=== PATIENT | male | born 1945 | race Caucasian/White ===

== ENCOUNTER 2017-05-26 17:50 | Inpatient (IN) ==
[2017-05-26] MEDS ORDERED: IPRATROPIUM/ALBUTEROL 3 ML AMPUL.NEB NEB ONE (18:19)
[2017-05-26] MEDS ORDERED: PHYTONADIONE 10 MG/ML AMPUL SQ ONE (18:36)
--- NOTE | 2017-05-26 18:38 | Emergency Department Note ---
General Adult HPI - General Chief complaint: Cold/Flu Symptoms Stated complaint: Coughing up blood Time Seen by Provider: 05/26/17 18:09 Source: patient Mode of arrival: ambulatory Limitations: no limitations - History of Present Illness HPI Narrative: 72-year-old male has been coughing up blood and coming out of his nose as well for the last hour and 45 minutes or so prior to arrival. He has had a cold for the last 2 weeks with some wheezing and his inhaler has not helped. He does have a history of COPD having stopped smoking about 3 years ago. On Coumadin for atrial fibrillation. He took some Mucinex and NyQuil without much help this last week. Denies fever chills. His shakes have increased but he has an essential tremor underlying - Related Data Home Medications Medication Instructions Recorded Confirmed aspirin 81 mg tablet,delayed 81 mg PO QDAY tab 02/09/15 04/26/17 release cholecalciferol (vitamin D3) 2,000 2,000 unit PO QDAY cap 02/09/15 04/26/17 unit capsule coenzyme Q10 200 mg capsule 200 mg PO QDAY cap 02/09/15 04/26/17 cyanocobalamin (vit B-12) 1,000 1,000 mcg PO QDAY tab 02/09/15 04/26/17 mcg tablet multivitamin tablet 1 tab PO QDAY tab 02/09/15 04/26/17 [place] 3 Fish Oil 1000MG 1 tab PO DAILY 07/19/15 04/26/17 Super B Complex 1 tab PO DAILY 07/19/15 04/26/17 digoxin 125 mcg tablet 125 mcg PO QDAY 07/19/15 04/26/17 nitroglycerin 0.4 mg sublingual 0.4 mg SUBLINGUAL Q5-15MIN PRN 07/19/15 04/26/17 tablet amiodarone 200 mg tablet 200 mg PO QDAY 30 Days #30 tab 07/11/16 04/26/17 losartan 25 mg tablet 25 mg PO QDAY 03/26/17 04/26/17 Previous Rx's Medication Instructions Recorded warfarin 5 mg tablet 5 mg PO .COMPLEX #1 tab 12/24/16 warfarin 5 mg tablet 5 mg PO .COMPLEX #90 tab 12/24/16 carvedilol 25 mg tablet 25 mg PO BID #180 tab 01/08/17 gabapentin 600 mg tablet 600 mg PO qhs #30 tab 01/28/17 potassium chloride ER 20 mEq 40 meq PO BID #360 tab 01/28/17 tablet,extended release(part/cryst) torsemide 10 mg tablet See Label Instructions PO .COMPLEX 01/28/17 #270 tab atorvastatin 40 mg tablet 40 mg PO QHS #90 tab 02/25/17 Glucometer #1 each 04/26/17 blood sugar diagnostic strips See Dose Instructions .ROUTE 04/26/17 .MEDSUPPLY #100 each lancets See Dose Instructions .ROUTE 04/26/17 .MEDSUPPLY #100 each Allergies Allergy/AdvReac Type Severity Reaction Status Date / Time spironolactone Allergy Severe vomiting Verified 05/26/17 17:51 Penicillins Allergy Unknown Hives Verified 05/26/17 17:51 Sulfa (Sulfonamide Allergy Unknown Hives Verified 05/26/17 17:51 Antibiotics) ethacrynic acid AdvReac Unknown Diarrhea Verified 05/26/17 17:51 Review of Systems All systems ED: reviewed and negative except as stated. Past Medical History - Past Medical History Attestation: Yes: The following information was validated with the patient. Medical history: Reports: arthritis, atrial fibrillation, CHF, COPD, coronary artery disease, diabetes, hyperlipidemia, hypertension, renal disease, other ( Essential tremor, BPH, diverticulitis) Surgical history ED: Reports: angioplasty/stent, colectomy, hip replacement, orthopedic, other (Lumbar surgery, shoulder surgery), pacemaker/AICD - Social History smoking status: Former smoker Alcohol use: Reports: None Drug use: Reports: none Physical Exam No acute distress. Normocephalic atraumatic. Conjunctive are clear sclerae nonicteric. No nasal discharge or congestion. Oropharynx is pink and moist. Upper dentures. Small amount of bleeding appears to be coming from postnasal area/posterior pharynx-it is slowing down. He does have a productive cough. Neck is supple without lymphadenopathy thyromegaly or carotid bruit. Heart is irregularly irregular rhythm no murmurs appreciated. Lungs after single breathing treatment with DuoNeb are much improved and he is moving air well with again a productive cough. There is some blood-tinged sputum. Abdomen soft nontender nondistended. +2 radial pulse. He is alert oriented. Significant resting tremor - General Limitations: no limitations Course Vital Signs Temperature 97.4 F 05/26/17 17:51 Pulse Rate 79 05/26/17 17:51 Respiratory Rate 20 05/26/17 17:51 Blood Pressure 124/71 05/26/17 17:51 Pulse Oximetry (%) 98 05/26/17 17:51 Temperature 97.4 F 05/26/17 17:51 Pulse Rate 67 05/26/17 19:51 Respiratory Rate 20 05/26/17 18:28 Blood Pressure 120/80 05/26/17 19:46 Pulse Oximetry (%) 98 05/26/17 19:51 Medical Decision Making - Lab Data Lab results reviewed: Yes I reviewed the patient's lab results. Result diagrams: 05/26/17 18:38 05/26/17 18:38 Lab Results 05/26/17 05/26/17 05/26/17 Range/Units 18:32 18:38 18:38 WBC 8.5 (4.5-11.0) K/mcL RBC 5.58 (4.50-5.90) M/mcL Hgb 15.4 (13.5-16.5) g/dL Hct 48.8 (41.0-55.0) % POC Hct 50.0 (41.0-55.0) % MCV 87.4 (80.0-100.0) fL MCH 27.6 (26.0-34.0) pg MCHC 31.6 (31.0-36.0) g/dL RDW 17.7 H (11.5-14.5) % Plt Count 255 (140-440) K/mcL MPV 7.7 (7.4-10.4) fL Gran % 74.9 (38.0-78.0) % Lymph % (Auto) 16.6 (15.5-49.0) % [place] % (Auto) 6.3 (1.0-12.0) % Eos % (Auto) 2.1 (0.0-7.0) % Baso % (Auto) 0.1 (0.0-2.0) % Gran # 6.3 (1.8-8.0) K/mcL Lymph # (Auto) 1.4 L (1.5-4.8) K/mcL [place] # (Auto) 0.5 (0.1-0.9) K/mcL Eos # (Auto) 0.2 (0.0-0.7) K/mcL Baso # (Auto) 0 (0.0-0.3) K/mcL POC PT > 66.0 H (11.9-14.5) sec POC INR > 6.0 H* (0.9-1.2) POC Sodium 143 (133-145) mmol/L Sodium 144 (133-145) mmol/L POC Potassium 3.7 (3.3-5.1) mmol/L Potassium 3.8 (3.3-5.1) mmol/L POC Chloride 105 (96-108) mmol/L Chloride 102 (96-108) mmol/L Carbon Dioxide 24 (22-30) mmol/L POC Total CO2 26 (22-30) mmol/L Anion Gap 18.0 H (8-16) POC BUN 28 H (8-23) mg/dl BUN 26 H (8-23) mg/dl Creatinine 1.9 H (0.7-1.2) mg/dl POC Creatinine 2.0 H (0.7-1.2) mg/dl GFR Calculation 35 Glucose 130 H (70-105) mg/dL POC Glucose 128 H (70-105) mg/dL Calcium 9.3 (8.6-10.4) mg/dl POC WB Ioniz Calcium 1.12 L (1.16-1.32) mmol/L Total Bilirubin 1.3 H (0.0-1.0) mg/dL AST 17 (0-37) U/l ALT 15 (0-40) U/l Alkaline Phosphatase 103 (39-117) U/L Total Protein 7.2 (5.9-8.4) gm/dL Albumin 3.9 (3.2-5.2) gm/dL Globulin 3.3 (2.2-3.7) gm/dL Albumin/Globulin Ratio 1.2 (1.0-2.3) Digoxin (0.0-0.3) ng/mL Digoxin Dose Digox Last Dose Time 05/26/17 Range/Units 18:38 WBC (4.5-11.0) K/mcL RBC (4.50-5.90) M/mcL Hgb (13.5-16.5) g/dL Hct (41.0-55.0) % POC Hct (41.0-55.0) % MCV (80.0-100.0) fL MCH (26.0-34.0) pg MCHC (31.0-36.0) g/dL RDW (11.5-14.5) % Plt Count (140-440) K/mcL MPV (7.4-10.4) fL Gran % (38.0-78.0) % Lymph % (Auto) (15.5-49.0) % [place] % (Auto) (1.0-12.0) % Eos % (Auto) (0.0-7.0) % Baso % (Auto) (0.0-2.0) % Gran # (1.8-8.0) K/mcL Lymph # (Auto) (1.5-4.8) K/mcL [place] # (Auto) (0.1-0.9) K/mcL Eos # (Auto) (0.0-0.7) K/mcL Baso # (Auto) (0.0-0.3) K/mcL POC PT (11.9-14.5) sec POC INR (0.9-1.2) POC Sodium (133-145) mmol/L Sodium (133-145) mmol/L POC Potassium (3.3-5.1) mmol/L Potassium (3.3-5.1) mmol/L POC Chloride (96-108) mmol/L Chloride (96-108) mmol/L Carbon Dioxide (22-30) mmol/L POC Total CO2 (22-30) mmol/L Anion Gap (8-16) POC BUN (8-23) mg/dl BUN (8-23) mg/dl Creatinine (0.7-1.2) mg/dl POC Creatinine (0.7-1.2) mg/dl GFR Calculation Glucose (70-105) mg/dL POC Glucose (70-105) mg/dL Calcium (8.6-10.4) mg/dl POC WB Ioniz Calcium (1.16-1.32) mmol/L Total Bilirubin (0.0-1.0) mg/dL AST (0-37) U/l ALT (0-40) U/l Alkaline Phosphatase (39-117) U/L Total Protein (5.9-8.4) gm/dL Albumin (3.2-5.2) gm/dL Globulin (2.2-3.7) gm/dL Albumin/Globulin Ratio (1.0-2.3) Digoxin 1.0 H (0.0-0.3) ng/mL Digoxin Dose Not Reportable Digox Last Dose Time Not Reportable - Radiology Data Radiology results reviewed: Yes I reviewed the patient's radiology results. Chest x-ray shows stigmata COPD and pacemaker but no acute findings Disposition Pt seen by PROCESS HELPER/PA only: No Clinical Impression: Dehydration, Supratherapeutic INR, Bronchitis Acute kidney failure Qualifiers: Acute renal failure type: unspecified Qualified Code(s): N17.9 - Acute kidney failure, unspecified Summary: Initially treated with DuoNeb while sorting out why he is bleeding. INR came back at 6.7 so he is given 5 mg of vitamin K IM. DuoNeb did help his cough get better and he was moving air much better. Chest x-ray shows stigmata of COPD. He is given azithromycin and Solu-Medrol as well as cough syrup with guaifenesin and codeine. Bleeding did slow down somewhat Laboratory also showed elevated creatinine and hemoconcentration likely from dehydration. Given p.o. water as well as started IV fluids. Creatinine elevated to 1.9 from 1.[address] Crum, hospitalist, who agreed to accept the patient for further valuation and management in the hospital Disposition: Xfer As Inpt ([facility]) Condition: Fair Referrals: Fletcher Perera MD [Primary Care Provider] -
[2017-05-26 19:17] LABS: Basophils # (Auto) 0 K/mcL (0.0-0.3); Basophils % (Auto) 0.1 % (0.0-2.0); Eosinophils # (Auto) 0.2 K/mcL (0.0-0.7); Eosinophils % (Auto) 2.1 % (0.0-7.0); Granulocytes % (Auto) 74.9 % (38.0-78.0); Lymphocytes # (Auto) 1.4 K/mcL (1.5-4.8); Lymphocytes % (Auto) 16.6 % (15.5-49.0); Mean Cell Volume 87.4 fL (80.0-100.0); Mean Corpuscular HGB Conc 31.6 g/dL (31.0-36.0); Mean Corpuscular Hemoglobin 27.6 pg (26.0-34.0); Monocytes # (Auto) 0.5 K/mcL (0.1-0.9); Monocytes % (Auto) 6.3 % (1.0-12.0); Platelet Count 255 K/mcL (140-440); RBC 5.58 M/mcL (4.50-5.90); Red Cell Distribution Width 17.7 % (11.5-14.5)
[2017-05-26 19:37] LABS: ALT/SGPT 15 U/l (0-40); Albumin 3.9 gm/dL (3.2-5.2); Albumin/Globulin Ratio 1.2 (1.0-2.3); Alkaline Phosphatase 103 U/L (39-117); Blood Urea Nitrogen 26 mg/dl (8-23)
[2017-05-26] MEDS ORDERED: guaiFENesin/CODEINE 10 ML UDC PO ONE (19:47)
[2017-05-26] MEDS ORDERED: methylPREDNISolone SOD SUCC 125 MG/2 ML VIAL IM ONE (19:48)
[2017-05-26] MEDS ORDERED: AZITHROMYCIN 250 MG TABLET PO ONE (19:48)
[2017-05-26] MEDS ORDERED: 0.9 % SODIUM CHLORIDE 1,000 ML IV ONE ×2 (20:08→21:23)
--- NOTE | 2017-05-26 21:40 | Internal Med History&Physical ---
Medical - H&P: HPI Patient information: Note initiated : 05/26/17 at 9:36 pm Service Date, if different from initiated Date: [] Patient: Jameson Stewart 72 y/o M admitted on for Coughing up blood. Chief Complaint: cough, dyspnea, hemoptysis today History of present illness: Mr. Stewart is a 72 year old M with a history of atrial fibrillation, type 2 diabetes, coronary artery disease, COPD (by PFTs in 2015). He presents with about 2 weeks of pulmonary symptoms. History is obtained in interviewing the patient, reviewing old records as noted below. About 2 weeks ago patient was around a friend to an upper respiratory tract infection. Shortly thereafter he developed a sore throat as well as sinus congestion and postnasal drip. He also developed a cough which has seemed to worsen during that time. His notes that the cough is very frequent, he's constantly bringing up yellowish sputum. She is also noted that he is quite wheezy. He does not use any bronchodilators or other pulmonary meds at baseline. He has been trying to use [id number] cough suppressants without much relief. Today he was coughing quite hard, when he expectorated sputum he noticed it was red, he continued to spit up bloody sputum for the next few hours. He is fairly certain this is coming from the lungs, also feels he may be having some postnasal drip which may be the source of the bleeding. It has tapered off by the time I see the patient. He's had ongoing fullness in his ears and sinus congestion, but no facial pressure or pain. As noted, he's had some postnasal drip for the last 2 weeks. The hearing in his left ear is a little muffled, he cannot get his ears to equalize. Denies any nausea, vomiting, or abdominal pain. He's had some loose stools for about the last week. He's had decreased appetite. He's also had decreased oral fluid intake. He's had no antibiotic exposures. No chest pain/tightness/ squeezing/anginal symptoms. No lower extremity edema. No focal neurological symptoms. Because of the hemoptysis, he presents to the emergency room. Found to have significant wheezing and bronchospasm as well as rhonchi. Also found to have an INR of 6.7 and elevated creatinine 1.9, with a baseline creatinine of 1.5- 1.7. Sputum admitted for coagulopathy, hemoptysis and COPD exacerbation. Review of systems: Except as noted in history present illness, the remainder of a 12 point review of systems is negative Medical - H&P: PMH Medical history: BPH without urinary obstruction CAD DE stent X 2 to LAD CKD stage III Recent Cr in 1.5-1.7 range Cardiomyopathy, EF 35% noted 12/2015 clinic note. Congestive heart failure-chronic systolic COPD, moderate obstruction on PFT's 2014 Degenerative disc disease L spine Diabetes mellitus, type II Diverticulosis of colon History of colonic polyps History of Polio as a child Hyperlipidemia Hypertension, essential, benign Hypertensive renal disease Lower extremity edema Paroxysmal atrial fibrillation On warfarin Raynaud's syndrome H/O Ankle fracture- Left H/O Nasal fracture H/O Radial fracture H/O Ribs, multiple fractures Surgical history: History of colonoscopy History of coronary artery stent placement LAD with re-stent History of esophagogastroduodenoscopy History of pacemaker History of diverticular abscess DIVERTICULAR/COLOSTOMY AND REANASTOMOSIS History of hip surgery Dr Vogel- Right hip arthroplasty using Gaye components History of lumbosacral spine surgery 2013,1995 Juan 2013, Yuri 96-lumbar fusion History of right hip replacement 2013 History of shoulder surgery R RTC Status post lumbar discectomy Pertinent family history: Father , 89; had Abdominal aortic aneurysm, CAD, Hypertension, OA Mother ; CAD, DM, Hypertension Social history: Lives with ; stopped smoking Jul 2014. Occasional alcohol use. Medical - H&P: Meds Home Medications Medication Instructions Recorded Confirmed Type aspirin 81 mg tablet,delayed 81 mg PO QDAY tab 02/09/15 04/26/17 History release cholecalciferol (vitamin D3) 2,000 2,000 unit PO QDAY cap 02/09/15 04/26/17 History unit capsule coenzyme Q10 200 mg capsule 200 mg PO QDAY cap 02/09/15 04/26/17 History cyanocobalamin (vit B-12) 1,000 1,000 mcg PO QDAY tab 02/09/15 04/26/17 History mcg tablet multivitamin tablet 1 tab PO QDAY tab 02/09/15 04/26/17 History [place] 3 Fish Oil 1000MG 1 tab PO DAILY 07/19/15 04/26/17 History Super B Complex 1 tab PO DAILY 07/19/15 04/26/17 History digoxin 125 mcg tablet 125 mcg PO QDAY 07/19/15 04/26/17 History nitroglycerin 0.4 mg sublingual 0.4 mg SUBLINGUAL Q5-15MIN PRN 07/19/15 History tablet amiodarone 200 mg tablet 200 mg PO QDAY 30 Days #30 tab 07/11/16 04/26/17 History warfarin 5 mg tablet 5 mg PO .COMPLEX #1 tab 12/24/16 04/26/17 Rx warfarin 5 mg tablet 5 mg PO .COMPLEX #90 tab 12/24/16 04/26/17 Rx carvedilol 25 mg tablet 25 mg PO BID #180 tab 01/08/17 04/26/17 Rx gabapentin 600 mg tablet 600 mg PO qhs #30 tab 01/28/17 04/26/17 Rx potassium chloride ER 20 mEq 40 meq PO BID #360 tab 01/28/17 04/26/17 Rx tablet,extended release(part/cryst) torsemide 10 mg tablet See Label Instructions PO .COMPLEX 01/28/17 04/26/17 Rx #270 tab atorvastatin 40 mg tablet 40 mg PO QHS #90 tab 02/25/17 04/26/17 Rx losartan 25 mg tablet 25 mg PO QDAY 03/26/17 04/26/17 History Glucometer #1 each 04/26/17 04/26/17 Rx blood sugar diagnostic strips See Dose Instructions .ROUTE 04/26/17 04/26/17 Rx .MEDSUPPLY #100 each lancets See Dose Instructions .ROUTE 04/26/17 04/26/17 Rx .MEDSUPPLY #100 each Allergies Allergy/AdvReac Type Severity Reaction Status Date / Time Penicillins Allergy Mild Hives Verified 05/26/17 22:20 Sulfa (Sulfonamide Allergy Mild Hives Verified 05/26/17 22:20 Antibiotics) ethacrynic acid AdvReac Mild Diarrhea Verified 05/26/17 22:20 spironolactone AdvReac Mild vomiting Verified 05/26/17 22:20 Medical - H&P: Exam - Constitutional Vitals: Temp Pulse Resp BP Pulse Ox 97.4 F 70 20 126/87 95 05/26/17 17:51 05/26/17 21:20 05/26/17 18:28 05/26/17 21:01 05/26/17 21:20 General appearance: average body habitus, mild distress - Head Head exam: Present: atraumatic, normal inspection - Eye Eye exam: Present: conjunctival injection, PERRL. Absent: scleral icterus - ENT ENT exam: Present: mucous membranes moist Additional comments: injection of posterior pharynx, worse on left - Expanded ENT Exam Nose & sinuses exam: Present: sinuses non tender to palpatation - Neck Neck exam: Present: full ROM. Absent: lymphadenopathy, meningismus, thyromegaly - Respiratory Additional comments: Diffusely scattered expiratory wheezes and rhonchi,respirations mildly labored - Cardiovascular Cardiovascular exam: Present: irregular rhythm. Absent: diastolic murmur, systolic murmur - Expanded Cardiovascular Exam Peripheral pulses: 2+: carotid (L), carotid (R), radial (L), radial (R) - GI/Abdominal GI/Abdominal exam: Present: normal bowel sounds, soft. Absent: distended, organomegaly, rebound, tenderness - Extremities Exam Extremities exam: Present: normal inspection. Absent: calf tenderness, pedal edema - Neurological Exam Neurological exam: Present: alert, CN II-XII intact, oriented X3. Absent: motor sensory deficit - Psychiatric Psychiatric exam: Present: normal affect, normal mood - Skin Skin exam: Present: dry, warm. Absent: cyanosis Medical - H&P: Reslt - Labs CBC & Chem 7: 05/26/17 18:38 05/26/17 18:38 Labs: Short CBC 05/26/17 Range/Units 18:38 WBC 8.5 (4.5-11.0) K/mcL Hgb 15.4 (13.5-16.5) g/dL Hct 48.8 (41.0-55.0) % Plt Count 255 (140-440) K/mcL BMP 05/26/17 18:38 Sodium 144 Potassium 3.8 Chloride 102 Carbon Dioxide 24 BUN 26 H Creatinine 1.9 H Glucose 130 H Calcium 9.3 Liver Function 05/26/17 Range/Units 18:38 Total Bilirubin 1.3 H (0.0-1.0) mg/dL AST 17 (0-37) U/l ALT 15 (0-40) U/l Alkaline Phosphatase 103 (39-117) U/L Albumin 3.9 (3.2-5.2) gm/dL - Pulse Oximetry Interpretation Digit-Finger Pulse Oximetry Readin - Imaging and Cardiology Chest x-ray Status: image reviewed by me Additional comments: No infiltrate, pacemaker. Medical - H&P: A/P (1) COPD exacerbation Problem details: Moderate obstructive lung disease 2014 Current visit: Yes Status: Acute (2) Hemoptysis Current visit: Yes Status: Acute (3) Supratherapeutic INR Problem details: due to warfarin Current visit: Yes Status: Acute (4) CKD (chronic kidney disease), stage III Problem details: most recent s.creat is 1.3 which equals to egfr of 56 l/min per MDRD equation s.creat at baseline is 1.1-1.3 and he does have recent worsening of his renal function in the setting of worsening CHF symptoms His recent worsening is likely sec to cardio renal syndrome, he has h/o DM type 2 and HTN as additional risk factor for renal disease His UA in 04/2015 showed + prt and few RBC at this point, will recheck labs and renal US advised to avoid NSAIDS, volume depletion advised to follow low sodium diet will monitor Current visit: Yes Status: Chronic (5) Diabetes mellitus, type II Current visit: Yes Status: Chronic - Narrative A/P Narrative: 72-year-old male with multiple medical problems presents with hemoptysis, in the setting of coagulopathy from warfarin toxicity and COPD exacerbation. Also mildly elevated creatinine, though baseline creatinine is 1.5-1.7. Hemoptysis. Suspect this is a combination of COPD exacerbation with cough and coagulopathy with supratherapeutic INR. Patient was forcefully coughing and expectorating blood. Possibly this could be from sinus drainage, though no evidence of sinus tenderness on exam and although the posterior pharynx was a bit difficult to see, no obvious bloody postnasal drip. Hemoglobin is 15, suspect is actually a bit dry in that that will drop with hydration, but no evidence of significant blood loss at this time. Plan: -Inpatient admission -Follow hemoglobin -Reverse coagulopathy -Treat COPD -If does not gabriel, we'll consider CT COPD with exacerbation. Patient was unaware of diagnosis, though he does have PFTs from 2015 showing moderate conductive disease. He is not surprised to hear that he may have COPD given his smoking history. Suspect viral URI started the exacerbation, he was around a friend who had URI symptoms prior to his beginning. Plan: -Received Solu-Medrol ED, will use Pulmicort as an inpatient -Scheduled DuoNeb -When necessary albuterol -Azithromycin -Flutter valve and incentive spirometer -Cough suppressant with codeine/guaifenesin as the patient has been having difficulty getting rest Coagulopathy due to warfarin toxicity. Likely secondary to his decreased oral intake and dietary changes. Has not doubled up on any of his medications. His last INR check was about a month ago when it was 3.5. Plan: -Received vitamin K in the ED, we'll recheck INR in a.m. -If significant worsening bleeding, we'll give further vitamin K and fresh frozen plasma Atrial fibrillation. Currently rate controlled. Plan: Once home meds confirmed, back onto carvedilol Chronic kidney disease, stage III. Creatinine mildly elevated above baseline at 1.9. Likely represents some component of prerenal insufficiency. Plan: Fluid hydration, follow creatinine. Type 2 diabetes mellitus. Home medications not yet confirmed, on a combination product. Plan: For now, diabetic diet and sliding scale insulin. Chronic systolic heart failure. In December 2015, noted in a nephrology note that his ejection fraction was 35%. Primary echo results not readily available. At time of admission, patient is not in exacerbation. Plan: Confirm home meds and resume regimen. Coronary disease. Quiescent. Plan: Once meds confirmed, resume home regimen. CODE STATUS is full code Prophylaxis: PPI, no further DVT prophylaxis as the patient is already supratherapeuticly anticoagulated.
[2017-05-26] MEDS ORDERED: HYDROcodone/APAP 5/325MG TABLET PO PRN (21:47)
[2017-05-26] MEDS ORDERED: DEXTROSE 31 GM ORAL.SUSP PO PRN (21:47)
[2017-05-26] MEDS ORDERED: ALBUTEROL SULFATE 2.5 MG/3 ML NEBULIZER NEB PRN (21:47)
[2017-05-26] MEDS ORDERED: DEXTROSE 50% 50 ML VIAL IV PRN (21:47)
[2017-05-26] MEDS ORDERED: ONDANSETRON 4 MG/2 ML VIAL IV PRN (21:47)
[2017-05-26] MEDS ORDERED: ACETAMINOPHEN 325 MG TABLET PO PRN (21:47)
[2017-05-26] MEDS: 0.9 % SODIUM CHLORIDE 1,000 ML IV SCH (22:34)
[2017-05-26] MEDS: INSULIN LISPRO 1 UNIT/0.01 ML UNIT SQ SCH (22:35)
[2017-05-26] MEDS: 0.9 % SODIUM CHLORIDE 10 ML SYRINGE IV SCH (22:36)
[2017-05-26] MEDS: BUDESONIDE 0.5 MG/2 ML AMPUL.NEB NEB SCH (23:09)
[2017-05-26] MEDS: IPRATROPIUM/ALBUTEROL 3 ML AMPUL.NEB NEB SCH (23:09)
[2017-05-26] MEDS: guaiFENesin/CODEINE 10 ML UDC PO PRN (23:50)
[2017-05-27] MEDS: IPRATROPIUM/ALBUTEROL 3 ML AMPUL.NEB NEB SCH ×6 (02:49→23:19)
[2017-05-27] MEDS: 0.9 % SODIUM CHLORIDE 1,000 ML IV SCH ×6 (02:49→23:28)
[2017-05-27 05:34] LABS: Mean Cell Volume 88.2 fL (80.0-100.0); Mean Corpuscular Hemoglobin 28.2 pg (26.0-34.0); Platelet Count 220 K/mcL (140-440); RBC 5.09 M/mcL (4.50-5.90); Red Cell Distribution Width 17.2 % (11.5-14.5)
[2017-05-27] MEDS: 0.9 % SODIUM CHLORIDE 10 ML SYRINGE IV SCH ×3 (05:37→23:25)
[2017-05-27 05:53] LABS: Blood Urea Nitrogen 28 mg/dl (8-23)
[2017-05-27 06:32] LABS: Anisocytosis 1+ (NONE SEEN); Band Neutrophils % 1 % (0-10); Lymphocytes % 7 % (15-49); Monocytes % (Manual) 1 % (1-12); Platelet Estimate NORMAL (NORMAL); RBC Morphology ABNORM (NORMAL); Segmented Neutrophils % 91 % (38-78)
[2017-05-27] MEDS: PANTOPRAZOLE 40 MG TABLET PO SCH (07:51)
[2017-05-27] MEDS: INSULIN LISPRO 1 UNIT/0.01 ML UNIT SQ SCH ×4 (07:52→21:16)
--- NOTE | 2017-05-27 08:30 | XRay Report ---
CLINICAL INFORMATION: Cough COMPARISON: 06/21/2016 FINDINGS: The heart is mildly enlarged. Pacemaker/defibrillator and leads in stable satisfactory position. Mediastinum and pulmonary vessels are normal. Lungs are clear. No effusions. Moderate degenerative changes present in the mid thoracic spine are stable IMPRESSION: Mild stable cardiomegaly. No acute disease. Stable Interpreted and Authenticated by: Stanley Diop 05/27/17
[2017-05-27] MEDS: AZITHROMYCIN 250 MG TABLET PO SCH (09:51)
[2017-05-27] MEDS: AMIODARONE HCL 200 MG TABLET PO SCH (09:55)
[2017-05-27] MEDS ORDERED: DIGOXIN 125 MCG TABLET PO SCH (14:00)
[2017-05-27] MEDS: CARVEDILOL 12.5 MG TABLET PO SCH (16:44)
[2017-05-27] MEDS: POTASSIUM CHLORIDE 20 MEQ TABLET PO SCH (16:44)
[2017-05-27] MEDS: guaiFENesin/CODEINE 10 ML UDC PO PRN ×2 (16:45→21:14)
[2017-05-27] MEDS: TORSEMIDE 10 MG TABLET PO SCH ×2 (18:21→21:17)
[2017-05-27] MEDS ORDERED: WARFARIN 2.5 MG TABLET PO ONE (18:23)
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
[2017-05-27] MEDS: BUDESONIDE 0.5 MG/2 ML AMPUL.NEB NEB SCH (19:23)
[2017-05-27] MEDS: ATORVASTATIN 20 MG TABLET PO SCH (21:14)
[2017-05-27] MEDS: GABAPENTIN 300 MG CAPSULE PO SCH (21:14)
[2017-05-28] MEDS: BUDESONIDE 0.5 MG/2 ML AMPUL.NEB NEB SCH ×3 (00:39→19:10)
[2017-05-28] MEDS: guaiFENesin/CODEINE 10 ML UDC PO PRN ×2 (01:10→05:37)
[2017-05-28] MEDS: 0.9 % SODIUM CHLORIDE 10 ML SYRINGE IV SCH ×3 (05:29→20:27)
[2017-05-28] MEDS: 0.9 % SODIUM CHLORIDE 1,000 ML IV SCH ×4 (05:29→23:57)
[2017-05-28] MEDS: IPRATROPIUM/ALBUTEROL 3 ML AMPUL.NEB NEB SCH ×7 (05:29→23:05)
[2017-05-28 05:37] LABS: Mean Cell Volume 88.1 fL (80.0-100.0); Mean Corpuscular HGB Conc 31.7 g/dL (31.0-36.0); Platelet Count 228 K/mcL (140-440); Red Cell Distribution Width 17.9 % (11.5-14.5)
[2017-05-28 06:08] LABS: Blood Urea Nitrogen 29 mg/dl (8-23)
[2017-05-28 06:31] LABS: Anisocytosis 1+ (NONE SEEN); Band Neutrophils % 1 % (0-10); Eosinophils % (Manual) 1 % (0-7); Lymphocytes % 11 % (15-49); Monocytes % (Manual) 6 % (1-12); Platelet Estimate NORMAL (NORMAL); RBC Morphology ABNORM (NORMAL); Segmented Neutrophils % 81 % (38-78)
[2017-05-28] MEDS: PANTOPRAZOLE 40 MG TABLET PO SCH (07:48)
[2017-05-28] MEDS: AMIODARONE HCL 200 MG TABLET PO SCH (07:49)
[2017-05-28] MEDS: CARVEDILOL 12.5 MG TABLET PO SCH ×2 (07:49→17:16)
[2017-05-28] MEDS: POTASSIUM CHLORIDE 20 MEQ TABLET PO SCH ×2 (07:49→17:17)
[2017-05-28] MEDS: AZITHROMYCIN 250 MG TABLET PO SCH (10:09)
[2017-05-28] MEDS: TORSEMIDE 10 MG TABLET PO SCH ×2 (10:11→20:25)
[2017-05-28] MEDS: MULTIVIT,THER IRON,CA,FA & MIN 1 TABLET PO SCH (10:13)
[2017-05-28] MEDS: LOSARTAN 25 MG TABLET PO SCH (10:17)
[2017-05-28] MEDS: INSULIN LISPRO 1 UNIT/0.01 ML UNIT SQ SCH ×4 (10:20→20:26)
--- NOTE | 2017-05-28 11:50 | XRay Report ---
CLINICAL INFORMATION: Cough and elevated white blood cell count COMPARISON: 05/26/2017 FINDINGS: Heart is increased in size and now moderately enlarged. Pacemaker/fibrillator is in stable satisfactory position. Mediastinum is unremarkable. The pulmonary vessels are now mildly distended and there is minimal interstitial edema in both lung. Small infiltrate has developed in the posterior medial right lower lobe. Tiny bilateral pleural effusions noted IMPRESSION: 1. Mild recurrent CHF 2. Small infiltrate developing in the posterior right lower lobe - likely pneumonia Interpreted and Authenticated by: Stanley Diop 05/28/17
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
[2017-05-28] MEDS ORDERED: WARFARIN 2.5 MG TABLET PO ONE (15:00)
[2017-05-28] MEDS: methylPREDNISolone SOD SUCC 40 MG/ML VIAL IV SCH ×2 (15:18→20:26)
[2017-05-28] MEDS: ERTAPENEM 1 GM in 0.9 % SODIUM CHLORIDE 50 ML IV SCH (15:33)
[2017-05-28] MEDS: GABAPENTIN 300 MG CAPSULE PO SCH (20:21)
[2017-05-28] MEDS: ATORVASTATIN 20 MG TABLET PO SCH (20:25)
[2017-05-29] MEDS: IPRATROPIUM/ALBUTEROL 3 ML AMPUL.NEB NEB SCH ×6 (02:34→23:10)
[2017-05-29] MEDS: 0.9 % SODIUM CHLORIDE 10 ML SYRINGE IV SCH ×3 (05:08→21:37)
[2017-05-29 05:42] LABS: Mean Cell Volume 88.1 fL (80.0-100.0); Mean Corpuscular HGB Conc 31.6 g/dL (31.0-36.0); Mean Corpuscular Hemoglobin 27.8 pg (26.0-34.0); Platelet Count 201 K/mcL (140-440); RBC 4.97 M/mcL (4.50-5.90); Red Cell Distribution Width 17.6 % (11.5-14.5)
[2017-05-29 06:48] LABS: Blood Urea Nitrogen 30 mg/dl (8-23)
[2017-05-29] MEDS: BUDESONIDE 0.5 MG/2 ML AMPUL.NEB NEB SCH ×2 (07:06→19:48)
[2017-05-29 07:09] LABS: Anisocytosis 2+ (NONE SEEN); Lymphocytes % 4 % (15-49); Ovalocytes 1+ (NONE SEEN); Platelet Estimate NORMAL (NORMAL); RBC Morphology ABNORM (NORMAL); Segmented Neutrophils % 96 % (38-78)
[2017-05-29] MEDS: CARVEDILOL 12.5 MG TABLET PO SCH ×2 (07:36→16:51)
[2017-05-29] MEDS: AMIODARONE HCL 200 MG TABLET PO SCH (07:36)
[2017-05-29] MEDS: POTASSIUM CHLORIDE 20 MEQ TABLET PO SCH ×2 (07:38→16:50)
[2017-05-29] MEDS: PANTOPRAZOLE 40 MG TABLET PO SCH (07:38)
[2017-05-29] MEDS: INSULIN LISPRO 1 UNIT/0.01 ML UNIT SQ SCH ×4 (07:43→21:37)
[2017-05-29] MEDS: AZITHROMYCIN 250 MG TABLET PO SCH (10:20)
[2017-05-29] MEDS: TORSEMIDE 10 MG TABLET PO SCH ×2 (10:21→21:37)
[2017-05-29] MEDS: LOSARTAN 25 MG TABLET PO SCH (10:22)
[2017-05-29] MEDS: MULTIVIT,THER IRON,CA,FA & MIN 1 TABLET PO SCH (10:22)
[2017-05-29] MEDS: 0.9 % SODIUM CHLORIDE 1,000 ML IV SCH ×2 (10:25→20:39)
[2017-05-29] MEDS: ERTAPENEM 1 GM in 0.9 % SODIUM CHLORIDE 50 ML IV SCH (10:28)
[2017-05-29] MEDS: methylPREDNISolone SOD SUCC 40 MG/ML VIAL IV SCH ×2 (10:30→21:35)
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
[2017-05-29] MEDS ORDERED: WARFARIN 5 MG TABLET PO ONE ×2 (14:00)
[2017-05-29] MEDS: GABAPENTIN 300 MG CAPSULE PO SCH (21:36)
[2017-05-29] MEDS: ATORVASTATIN 20 MG TABLET PO SCH (21:36)
[2017-05-29] MEDS ORDERED: SENNOSIDES/DOCUSATE SODIUM 1 TAB TABLET PO ONE ×2 (22:34→23:00)
[2017-05-30] MEDS: IPRATROPIUM/ALBUTEROL 3 ML AMPUL.NEB NEB SCH ×6 (03:19→23:47)
[2017-05-30] MEDS: 0.9 % SODIUM CHLORIDE 10 ML SYRINGE IV SCH ×3 (06:04→20:51)
[2017-05-30] MEDS ORDERED: MAGNESIUM HYDROXIDE 30 ML ORAL.SUSP PO ONE (07:00)
[2017-05-30] MEDS: PANTOPRAZOLE 40 MG TABLET PO SCH (07:14)
[2017-05-30] MEDS: INSULIN LISPRO 1 UNIT/0.01 ML UNIT SQ SCH ×4 (07:19→20:48)
[2017-05-30] MEDS: BUDESONIDE 0.5 MG/2 ML AMPUL.NEB NEB SCH ×2 (08:11→20:10)
[2017-05-30] MEDS: FUROSEMIDE 40 MG/4 ML VIAL IV SCH ×2 (08:44→15:57)
[2017-05-30] MEDS: ERTAPENEM 1 GM in 0.9 % SODIUM CHLORIDE 50 ML IV SCH (08:44)
[2017-05-30] MEDS: POTASSIUM CHLORIDE 20 MEQ TABLET PO SCH ×2 (08:45→16:58)
[2017-05-30] MEDS: CARVEDILOL 12.5 MG TABLET PO SCH ×2 (08:45→16:58)
[2017-05-30] MEDS: AZITHROMYCIN 250 MG TABLET PO SCH (08:45)
[2017-05-30] MEDS: LOSARTAN 25 MG TABLET PO SCH (08:45)
[2017-05-30] MEDS: predniSONE 20 MG TABLET PO SCH (08:45)
[2017-05-30] MEDS: AMIODARONE HCL 200 MG TABLET PO SCH (08:45)
[2017-05-30] MEDS: MULTIVIT,THER IRON,CA,FA & MIN 1 TABLET PO SCH (08:45)
[2017-05-30 09:20] LABS: Basophils # (Auto) 0 K/mcL (0.0-0.3); Basophils % (Auto) 0 % (0.0-2.0); Eosinophils # (Auto) 0.1 K/mcL (0.0-0.7); Eosinophils % (Auto) 0.7 % (0.0-7.0); Granulocytes % (Auto) 94.1 % (38.0-78.0); Lymphocytes # (Auto) 0.6 K/mcL (1.5-4.8); Mean Cell Volume 87.5 fL (80.0-100.0); Mean Corpuscular HGB Conc 31.9 g/dL (31.0-36.0); Mean Corpuscular Hemoglobin 27.9 pg (26.0-34.0); Monocytes # (Auto) 0.2 K/mcL (0.1-0.9); Monocytes % (Auto) 1.2 % (1.0-12.0); Platelet Count 196 K/mcL (140-440); RBC 5.12 M/mcL (4.50-5.90); Red Cell Distribution Width 17.9 % (11.5-14.5)
[2017-05-30 09:49] LABS: Blood Urea Nitrogen 40 mg/dl (8-23)
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
[2017-05-30] MEDS ORDERED: WARFARIN 5 MG TABLET PO ONE (14:00)
[2017-05-30] MEDS ORDERED: BENZOCAINE/MENTHOL 1 LOZENGE PO PRN (14:19)
--- NOTE | 2017-05-30 17:16 | Cat Scan Report ---
CLINICAL INFORMATION: Hemoptysis COMPARISON: Chest CT from 12/24/2009 TECHNIQUE: 2.5 mm axial slices were obtained from the lung apices through the bases without intravenous contrast. Sagittal, coronal and axial reformatted images were processed and reviewed at bone, lung and soft tissue windows. 7 mm axial MIP images were also reconstructed. FINDINGS: Pulmonary parenchymal windows show moderate sized patchy groundglass infiltrates throughout both the anterior and posterior segment of the right upper lobe, medial segment of the right middle lobe and the posterior/ lateral basal segments of the right lower lobe. The right lower lobe infiltrate also tree-in-bud features features. In the left lung, there is a moderate size mixed interstitial/alveolar infiltrate generally in a bronchovascular distribution the medial, posterior lateral basilar segments of the left lower lobe. A 3.7 cm cavitary lesion, with an air-fluid level, is seen in the anterior basilar segment - adjacent to the diaphragm. There is also minimal scattered groundglass airspace disease throughout the left upper lobe. Mild underlying chronic bronchitis changes are appreciated. There are are only tiny bilateral pleural effusions Mediastinal windows show moderate cardiomegaly demonstrating only slight progression. Pacemaker and leads in stable satisfactory position. There is a small chronic pericardial effusion. Esophagus is grossly normal. Few mildly enlarged mediastinal lymph nodes in the pericarinal, lower paratracheal region are unchanged from the older study. The noncontrasted thoracic aorta and pulmonary arteries are normal in contour and caliber. Bones and soft tissues the chest wall are normal, IMPRESSION: 1. Moderate sized patchy groundglass infiltrates within the right upper, middle and right lower lobes. The right lower lobe infiltrate has also is a tree-in-bud component. Moderate sized patchy mixed alveolar/interstitial infiltrate in the left lower lobe appreciated. Scattered small groundglass infiltrates in the left upper lobe. Differential diagnosis includes multifocal infection particularly opportunistic infections (CMV, PCP RSV etc,), ARDS, hypersensitivity pneumonitis and atypical aspiration. 2. 3.7 cm cavitary lesion in the anterior basilar segment left lower lobe just above the diaphragm is new. This is most likely an abscess 3. Moderate cardiomegaly with small chronic pericardial effusion. 4. Small bilateral pleural effusions Interpreted and Authenticated by: Stanley Diop 05/30/17
[2017-05-30] MEDS: GABAPENTIN 300 MG CAPSULE PO SCH (20:48)
[2017-05-30] MEDS: ATORVASTATIN 20 MG TABLET PO SCH (20:48)
[2017-05-31] MEDS: IPRATROPIUM/ALBUTEROL 3 ML AMPUL.NEB NEB SCH ×6 (02:59→19:30)
[2017-05-31 05:19] LABS: Basophils # (Auto) 0 K/mcL (0.0-0.3); Basophils % (Auto) 0 % (0.0-2.0); Eosinophils # (Auto) 0.1 K/mcL (0.0-0.7); Eosinophils % (Auto) 0.5 % (0.0-7.0); Lymphocytes # (Auto) 0.8 K/mcL (1.5-4.8); Lymphocytes % (Auto) 5.5 % (15.5-49.0); Mean Cell Volume 87.2 fL (80.0-100.0); Mean Corpuscular HGB Conc 32.4 g/dL (31.0-36.0); Mean Corpuscular Hemoglobin 28.3 pg (26.0-34.0); Monocytes # (Auto) 0.5 K/mcL (0.1-0.9); Platelet Count 187 K/mcL (140-440); Red Cell Distribution Width 17.7 % (11.5-14.5)
[2017-05-31] MEDS: 0.9 % SODIUM CHLORIDE 10 ML SYRINGE IV SCH ×3 (05:40→21:20)
[2017-05-31 05:44] LABS: Blood Urea Nitrogen 43 mg/dl (8-23)
[2017-05-31] MEDS: PANTOPRAZOLE 40 MG TABLET PO SCH (07:07)
[2017-05-31] MEDS: INSULIN LISPRO 1 UNIT/0.01 ML UNIT SQ SCH ×4 (07:07→21:30)
[2017-05-31] MEDS: BUDESONIDE 0.5 MG/2 ML AMPUL.NEB NEB SCH ×2 (07:14→21:33)
[2017-05-31] MEDS: FUROSEMIDE 40 MG/4 ML VIAL IV SCH ×2 (07:29→16:32)
[2017-05-31] MEDS: POTASSIUM CHLORIDE 20 MEQ TABLET PO SCH ×2 (07:30→17:10)
[2017-05-31] MEDS: CARVEDILOL 12.5 MG TABLET PO SCH ×2 (07:30→17:11)
[2017-05-31] MEDS: predniSONE 20 MG TABLET PO SCH (07:30)
[2017-05-31] MEDS: AMIODARONE HCL 200 MG TABLET PO SCH (07:30)
[2017-05-31] MEDS: ERTAPENEM 1 GM in 0.9 % SODIUM CHLORIDE 50 ML IV SCH (08:48)
[2017-05-31] MEDS: LOSARTAN 25 MG TABLET PO SCH (08:49)
[2017-05-31] MEDS: MULTIVIT,THER IRON,CA,FA & MIN 1 TABLET PO SCH (08:49)
--- NOTE | 2017-05-31 12:34 | Internal Med Progress Note ---
Medical - PN: Subj Patient information: Note initiated : 05/31/17 at 12:31 pm Service Date, if different from initiated Date: [] Patient: Jameson Stewart 72 y/o M admitted on 05/26/17 for Coughing up Blood/ Hemoptysis. Chief Complaint: [] Interval history: May 27: Feels improved today, cough not quite as bad, no hemoptysis. He improved somewhat. His voice is a little hoarse. Normally takes 5 mg of warfarin 6 days a weeks, 2.5 mg on the seventh. May 28: About the same, still persistent, nonproductive cough. Receiving chest physiotherapy, which is helping. Still with scattered wheezes and rhonchi in all lung calderon. He can increase to 17,000 today, did not receive corticosteroids except for inhaled budesonide. Chest radiograph reveals repeated, reveals right lower lobe infiltrate. Suspect this may be community- acquired, just was not apparent upon admission due to dehydration and volume depletion. May 29: Feels improved today, lungs are clear. Coughing up some dark reddish sputum at times, no bright red blood. Still undergoing chest physiotherapy. Overall improving. White count mildly improved on new antibiotics. Tolerated ertapenem without problem (PCN allergy). May 30: Develop significant edema overnight. Fluids have been discontinued. His weight is up. Respiratory status is about stable, however having fresher looking bouts of intermittent hemoptysis. No chest pain. Dyspnea stable/ slightly improving. No nausea or vomiting, no fevers or chills. May 31 Patient seen examined, no acute overnight events, no hemoptysis this AM, he feels better today, wbc trending down. CT reviewed with him yesterdayl possible lung abscess pt admits to have possible aspiration episodes in the past, Pulmonary consulted, await Dr Rima figueroa Pt still has some shortness of breath. sputum cx sent Pertinent ROS: Denies headache, dizziness Denies chest pain, palpitations Present but improving cough and shortness of breath Denies abdominal pain, nausea or vomiting. - Constitutional Vitals: Vital Signs Temp Pulse Resp BP Pulse Ox 97.5 F 75 16 118/76 96 05/31/17 11:41 05/31/17 11:58 05/31/17 11:58 05/31/17 11:41 05/31/17 12:01 Period Temp Pulse Resp BP Sys/Hassan Pulse Ox Last 24 Hr 97.4 F-97.5 F 66-75 16-18 101-122/69-85 93-97 Intake and Output 05/30/17 05/31/17 05/31/17 21:59 05:59 13:59 Intake Total 1040 / 1040 700 / 700 50 / 50 Output Total 900 / 900 1450 / 1450 2350 / 2350 Balance 140 / 140 -750 / -750 -2300 / -2300 Weight 243 lb 4.8 oz Intake & Output: Intake & Output 05/30/17 05/31/17 05/31/17 21:59 05:59 13:59 Intake Total 1040 / 1040 700 / 700 50 / 50 Output Total 900 / 900 1450 / 1450 2350 / 2350 Balance 140 / 140 -750 / -750 -2300 / -2300 Weight 243 lb 4.8 oz Intake: IV 50 / 50 INVanz 1 GM In Sodium Chloride 50 / 50 0.9% 50 ml @ 100 mls/hr IV DAILY [facility] Rx#:[id number] Oral 1040 / 1040 700 / 700 Output: Void Amount 900 / 900 1450 / 1450 2350 / 2350 Other: Meal Dinner Breakfast Percent of Meal Consumed 100% 100% Feeding Ability Independent # Voids 1 1 # Bowel Movements 1 Exam: Constitutional; Afebrile, cooperative, alert, not in distress. Eyes- No icterus, , No periorbital swelling Ears- Ext ear normal, hearing normal to conversation. Neck- Midline trachea, supple Respiratory system: Air Entry equal on both sides, Nbil coarse rhonchi and wheezing. CVS- Rate rhythm regular, S1,S2 heard, no gallop, no rub. 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 Medical - PN: Obj Da - Labs CBC & Chem 7: 05/31/17 04:20 05/31/17 04:20 Labs: Abnormal Lab Results 05/31/17 05/31/17 05/31/17 04:20 04:20 04:20 WBC 15.2 H RDW 17.7 H Gran % 91.0 H Lymph % (Auto) 5.5 L Gran # 13.8 H Lymph # (Auto) 0.8 L Seg Neutrophils % Lymphocytes % RBC Morphology Poikilocytosis Anisocytosis Ovalocytes PT 24.8 H INR 2.2 H Carbon Dioxide BUN 43 H Creatinine 1.6 H Glucose 181 H Calcium 8.4 L 05/30/17 05/30/17 05/30/17 08:25 08:25 08:25 WBC 16.1 H RDW 17.9 H Gran % 94.1 H Lymph % (Auto) 4.0 L Gran # 15.2 H Lymph # (Auto) 0.6 L Seg Neutrophils % Lymphocytes % RBC Morphology Poikilocytosis Anisocytosis Ovalocytes PT 19.2 H INR 1.6 H Carbon Dioxide BUN 40 H Creatinine 1.8 H Glucose 223 H Calcium 05/29/17 05/29/17 05/29/17 04:26 04:26 04:26 WBC 14.5 H RDW 17.6 H Gran % Lymph % (Auto) Gran # Lymph # (Auto) Seg Neutrophils % 96 H Lymphocytes % 4 L RBC Morphology Abnorm A Poikilocytosis 2+ A Anisocytosis 2+ A Ovalocytes 1+ A PT 20.3 H INR 1.7 H Carbon Dioxide 18 L BUN 30 H Creatinine 1.5 H Glucose 188 H Calcium Meds: Medications Acetaminophen (Tylenol) 650 mg PO Q6HP PRN PRN Reason: PAIN/FEVER > 101 Hydrocodone Bitart/Acetaminophen ([place] 5/325mg) 1 tab PO Q4HP PRN PRN Reason: Pain Albuterol Sulfate (Ventolin) 2.5 mg NEB Q2HP PRN PRN Reason: Shortness Of Breath Albuterol/Ipratropium (Duoneb) 3 ml NEB Q4HRT [facility] Last Admin: 05/31/17 11:44 Dose: 3 ml Amiodarone HCl (Cordarone) 200 mg PO QAC [facility] Last Admin: 05/31/17 07:30 Dose: 200 mg Atorvastatin Calcium (Lipitor) 40 mg PO HS [facility] Last Admin: 05/30/17 20:48 Dose: 40 mg Budesonide (Pulmicort) 0.5 mg NEB Q12 [facility] Last Admin: 05/31/17 07:14 Dose: 0.5 mg Carvedilol (Coreg) 25 mg PO BIDCC [facility] Last Admin: 05/31/17 07:30 Dose: 25 mg Dextrose (Dextrose 50%) 0 ml IV UD PRN PRN Reason: Hypoglycemia Diagnostic Test (Pha) (Accu-Chek) 1 each FS ACHS [facility] Last Admin: 05/31/17 11:14 Dose: 1 each Furosemide (Lasix) 40 mg IV BIDD [facility] Last Admin: 05/31/17 07:29 Dose: 40 mg Gabapentin (Neurontin) 600 mg PO HS [facility] Last Admin: 05/30/17 20:48 Dose: 600 mg Glucose (Insta-Glucose) 15 gm PO PRN PRN PRN Reason: Hypoglycemia Guaifenesin/Codeine Phosphate (Robitussin Ac) 5 ml PO Q4HP PRN PRN Reason: Cough Last Admin: 05/28/17 05:37 Dose: 5 ml Ertapenem 1 gm/ Sodium (Chloride) 50 mls @ 100 mls/hr IV DAILY [facility] Last Infusion: 05/31/17 09:20 Dose: Infused Insulin Human Lispro (Humalog) 0 unit SQ ACHS [facility] PRN Reason: Protocol Last Admin: 05/31/17 11:18 Dose: 4 unit Iron Carb/Multivit/Popponesset/Folic Acid (Multivitamin W/Minerals) 1 tab PO DAILY [facility] Last Admin: 05/31/17 08:49 Dose: 1 tab Losartan Potassium (Cozaar) 25 mg PO QDAY [facility] Last Admin: 05/31/17 08:49 Dose: 25 mg Ondansetron HCl (Zofran) 4 mg IV Q6HP PRN PRN Reason: Nausea And Vomiting [facility]opraz[facility] Admin: 05/31/17 07:07 Dose: 40 mg Potassium Chloride (Kdur) 40 meq PO BIDCC [facility] Last Admin: 05/31/17 07:30 Dose: 40 meq Prednisone (Prednisone) 40 mg PO QAC [facility] Last Admin: 05/31/17 07:30 Dose: 40 mg Sodium Chloride (Saline Flush) 10 ml IV Q8 [facility] Last Admin: 05/31/17 05:40 Dose: 10 ml Throat Lozenges (Cepacol) 1 lozenge PO PRN PRN PRN Reason: Sore Throat Last Admin: 05/30/17 14:54 Dose: 1 lozenge Warfarin Sodium (Coumadin Per Pharmacy) 1 order PO [facility] Warfarin Sodium (Coumadin) 2.5 mg PO ONCE@1400 ONE Stop: 05/31/17 14:01 - Imaging and cardiology CT scan - chest Additional comments: IMPRESSION: 1. Moderate sized patchy groundglass infiltrates within the right upper, middle and right lower lobes. The right lower lobe infiltrate has also is a tree-in-bud component. Moderate sized patchy mixed alveolar/interstitial infiltrate in the left lower lobe appreciated. Scattered small groundglass infiltrates in the left upper lobe. Differential diagnosis includes multifocal infection particularly opportunistic infections (CMV, PCP RSV etc,), ARDS, hypersensitivity pneumonitis and atypical aspiration. 2. 3.7 cm cavitary lesion in the anterior basilar segment left lower lobe just above the diaphragm is new. This is most likely an abscess 3. Moderate cardiomegaly with small chronic pericardial effusion. 4. Small bilateral pleural effusions Medical - PN: A/P - Time Spent With Patient Total time spent is greater than 50% in coordination of care (as documented) at patient's floor/unit and/or counseling patient: - Narrative A/P Narrative: 72-year-old male with multiple medical problems presents with hemoptysis, in the setting of coagulopathy from warfarin toxicity and COPD exacerbation. Also mildly elevated creatinine, though baseline creatinine is 1.5-1.7. Hemoptysis. due to lung abscess ,INR now therapeutic, seems to be improving. Lung Abscess: Noted on CT scan, Pulm following, await input. PLan to continue iv abx for now, sputum cx sent. Right lower lobe developing pneumonia.on ertapemum with improvement. COPD with exacerbation: On systemic steroids and duonebs, continue same, on ABX Coagulopathy due to warfarin toxicity. Plan: Follow INR 2.2 today, continue warfarin therapy per pharmacy. Atrial fibrillation. Currently rate controlled/ventricular paced (regular Sat, ) Plan: Home carvedilol resumed Chronic kidney disease, stage III. Creatinine mildly elevated above baseline but now brionna to baseline. Plan: Fluids stopped, diuresing Th, follow creatinine. Type 2 diabetes mellitus. Plan: Diabetic diet and sliding scale insulin. Chronic systolic heart failure. In December 2015, noted ejection fraction was 35%. At time of admission, patient is not in exacerbation. Some mild vascular congestion after fluids given in the hospital. Edema seemed to worsen overnight. Plan: Change torsemide to IV furosemide twice daily, follow renal function and clinical response. Resume oral meds whe able, Coronary disease. Quiescent. Plan: Home regimen ordered. CODE STATUS is full code Prophylaxis: PPI, no further DVT prophylaxis as the patient is already anticoagulated. Medical - PN: Qual - VTE Deep Vein Thrombosis/Pulmonary Embolism Present on Admission: No
--- NOTE | 2017-05-31 13:05 | Consultation ---
DATE OF CONSULTATION: 05/31/2017 REQUESTING PHYSICIAN: Karina Cardoso M.D. CONSULTING PHYSICIAN: Red Abarca M.D. REASON FOR CONSULTATION: The patient is a 72-year-old male who provides the following history. He indicates that approximately 6 days ago he was up on ground he has near [place] when he noticed a sense of need to cough. He had been experiencing a mild typical URI with nasal congestion. With coughing, he coughed up some streaks of blood and decided it might be better to get back to town. As he progressed to [facility], he began coughing up more blood and because of that presented to [facility] for further evaluation. On evaluation in the emergency room he was found to have a supratherapeutic INR. Warfarin therapy for known atrial fibrillation and because of that and other findings, he was considered a candidate for admission. Subsequent evaluation with CT scan of the chest demonstrated scattered pulmonary infiltrates, as well as the possibility of a lung abscess in the left lung base down near the diaphragm. The patient had therapy to improve his INR and with that and time has had a course of general clinical improvement. Looking at the patient's lungs overall, he reports being a relatively unwell child in his thought. He reports frequent episodes of what were called bronchitis at the time. 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 He was in the service in the late 60s and spent a year in [place]. He does not recall PPD skin testing either in or out of the service or otherwise. 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 He got task-force reduced and got a job in [employer] at [employer]. 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 He subsequently retired. He denies unusual pets, plants or birds in the home. There are two cats. He denies being a generally allergic person. He states that his home is next to some [place], and there is a fair amount of dust. He denies symptomatic gastroesophageal reflux disease. Interestingly, he reports since the 90s after anesthesia and intubation with a back surgery, difficulty with dysphagia, coughing with thin liquids if not careful when chewing and swallowing and sometimes coughing with other consistencies of food. That has been a problem ongoing for almost 20 years. He has never had that situation evaluated. Of interest, he also has a cardiac history. Apparently had an evaluation at [place] and had an event on the treadmill, treated with stent, and had significant difficulty with heart rhythm disturbance and eventually ended up with a pacemaker defibrillator. He continues in atrial fibrillation warranting Coumadin anticoagulation managed by his primary care doctor at this time. The patient with his heart rhythm disturbance has been on amiodarone for approximately one year. He reports about 5 years total tobacco consumption over about a 10-year period and quit approximately 3 years ago. He reports pulmonary function study testing approximately 2 years ago but not subsequently that he recalls. He does have some difficulty with dependent edema with his cardiac issues. He is also known to have some mild chronic renal insufficiency with creatinine running in the 1.5 to 1.7 range. The patient was originally treated with azithromycin and was converted to ertapenem subsequently. REVIEW OF SYSTEMS: System review is negative except for as recorded above on detailed questioning. PHYSICAL EXAMINATION: GENERAL: Pleasant gentleman, quite conversational and in no acute distress. HEAD: Atraumatic and normocephalic. EYES: PRL, EOMI. Sclera and conjunctiva clear. NECK: Supple. The carotids are without bruits. LUNGS: Decreased breath sounds throughout with finer and coarser interstitial sounds mildly in the right lung and a few in the left lung base. HEART: Regular at this time. S1, S2. Perhaps spaced beats. There is a trace of dependent edema which he suggests was to a degree due to vigorous IV fluid hydration on presentation and by his report is currently improved. ABDOMEN: Soft. Bowel sounds are present. Liver and spleen are not palpable. EXTREMITIES: Bones, joints and extremities are intact. NEUROLOGIC: Exam is nonfocal. LABORATORY DATA: Laboratory data collected thus far in this patient's hospitalization include serial CBCs with a white count as high as 17.8, currently today 15.2 with increased neutrophilic forms. INR was initially greater than 6 and is at 2.2 today. Chemistries have a creatinine that was as high as 1.9 on presentation but 1.6 this morning. Digoxin level on the day of or after admission was 0.9. CT scan of the chest is as described. There is a density and area of possible abscess in the left base anterior basilar segment. IMPRESSION: A pleasant 72-year-old male with hemoptysis secondary to excessive Coumadin anticoagulation and inflammatory condition in the chest. The patient has an edentulous upper arch but some of his [place] teeth and indicates that he does not floss. The differential certainly would include lung abscess, the possibility of a cavitary lung carcinoma would have to be entertained as a possibility, with his dysphagia, speech and swallowing and foreign body issues, with his amiodarone the possibility that some of his infiltrates relate to an amiodarone lung toxicity. At this time the most probable answer with his dysphagia is likely a lung abscess. I agree with ertapenem and following his clinical course at this point in time. When he is better, presuming continued improvement and radiographic progression toward resolution, I would not do further interventions but would be interested in seeing him back in the clinic and doing some lung function studies when he is returned to a more relative wellness to examine other possible disease processes in the chest. Thank you for the opportunity to participate in the care of this interesting gentleman. KJP:stevan Job ID: [id number] Doc ID: [id number] Red Abarca MD
[2017-05-31] MEDS ORDERED: WARFARIN 2.5 MG TABLET PO ONE (14:00)
--- NOTE | 2017-05-31 18:29 | XRay Report ---
CLINICAL INFORMATION: Aspiration TECHNIQUE: Exam was performed in conjunction with speech pathology. Thin and thick viscosity barium and solids were administered while deglutition was observed fluoroscopically of the pharyngeal and upper esophageal region FINDINGS: Tongue movement is slightly weakened resulting in premature spillage of the barium bolus into the vallecula. The soft palate opposition is normal. Cricopharyngeus closes normally Pharyngeal stripping is normal. There is incomplete opening of the cricopharyngeus suggesting slight cricopharyngeal achalasia. There is incomplete epiglottis closure on the thin quality barium which allowed a small amount of laryngeal vestibule penetration. This cleared promptly. No penetration past the vocal cords. IMPRESSION: Please see the speech pathology report rendered separately Tiny amount of descending aspiration on thin quality barium due to incomplete epiglottis closure. Minor premature spillage of the barium during the oral phase due to tongue weakness Mild cricopharyngeal achalasia Interpreted and Authenticated by: Stanley Diop 05/31/17
[2017-05-31] MEDS: GABAPENTIN 300 MG CAPSULE PO SCH (21:18)
[2017-05-31] MEDS: ATORVASTATIN 20 MG TABLET PO SCH (21:18)
[2017-06-01] MEDS: IPRATROPIUM/ALBUTEROL 3 ML AMPUL.NEB NEB SCH ×4 (01:18→11:17)
[2017-06-01] MEDS: 0.9 % SODIUM CHLORIDE 10 ML SYRINGE IV SCH (05:37)
[2017-06-01] MEDS: BUDESONIDE 0.5 MG/2 ML AMPUL.NEB NEB SCH (07:07)
[2017-06-01] MEDS: PANTOPRAZOLE 40 MG TABLET PO SCH (07:35)
[2017-06-01] MEDS: INSULIN LISPRO 1 UNIT/0.01 ML UNIT SQ SCH ×2 (07:37→11:34)
[2017-06-01] MEDS: POTASSIUM CHLORIDE 20 MEQ TABLET PO SCH (09:01)
[2017-06-01] MEDS: CARVEDILOL 12.5 MG TABLET PO SCH (09:02)
[2017-06-01] MEDS: predniSONE 20 MG TABLET PO SCH (09:02)
[2017-06-01] MEDS: MULTIVIT,THER IRON,CA,FA & MIN 1 TABLET PO SCH (09:02)
[2017-06-01] MEDS: AMIODARONE HCL 200 MG TABLET PO SCH (09:02)
[2017-06-01] MEDS: LOSARTAN 25 MG TABLET PO SCH (09:03)
[2017-06-01] MEDS: ERTAPENEM 1 GM in 0.9 % SODIUM CHLORIDE 50 ML IV SCH (09:03)
[2017-06-01] MEDS: FUROSEMIDE 40 MG/4 ML VIAL IV SCH (09:03)
[2017-06-01 09:22] LABS: Basophils # (Auto) 0 K/mcL (0.0-0.3); Basophils % (Auto) 0.1 % (0.0-2.0); Blood Urea Nitrogen 39 mg/dl (8-23); Eosinophils # (Auto) 0.1 K/mcL (0.0-0.7); Eosinophils % (Auto) 0.4 % (0.0-7.0); Granulocytes % (Auto) 86.4 % (38.0-78.0); Lymphocytes # (Auto) 1.2 K/mcL (1.5-4.8); Lymphocytes % (Auto) 8.6 % (15.5-49.0); Mean Cell Volume 87.8 fL (80.0-100.0); Mean Corpuscular HGB Conc 31.7 g/dL (31.0-36.0); Mean Corpuscular Hemoglobin 27.8 pg (26.0-34.0); Monocytes # (Auto) 0.6 K/mcL (0.1-0.9); Monocytes % (Auto) 4.5 % (1.0-12.0); Platelet Count 212 K/mcL (140-440); RBC 5.22 M/mcL (4.50-5.90); Red Cell Distribution Width 17.9 % (11.5-14.5)
--- NOTE | 2017-06-01 11:27 | Discharge Summary ---
Medical - DS: Prov Patient information: Note initiated : 06/01/17 at 11:21 am Service Date, if different from initiated Date: [] Patient: Jameson Stewart 72 y/o M admitted on 05/26/17 for Coughing up Blood/ Hemoptysis. Chief Complaint: [] Date of admission: 05/26/17 21:46 Discharge date: 06/01/17 Primary care physician: Fletcher Perera Admitting clinician: Karina Cardoso Consults: 05/26/17 20:12 Consult to Physician [CONS] Stat Comment: Consulting Provider: Karina Cardoso Reason For Exam: Physician to Consult 05/31/17 09:49 Consult to Physician [CONS] Routine Comment: Consulting Provider: Red Brown Reason For Exam: Physician to Consult Discharging clinician: Rina Blount Medical - DS: Meds - Discharge Medications Prescriptions: Albuterol Sulfate [Proventil Hfa] 2 puff IH Q4H PRN #1 hfa.aer.ad PRN Reason: Shortness Of Breath Or Wheezing Clindamycin HCl 600 mg PO TID #180 cap predniSONE [Deltasone] 40 mg PO DAILY #6 tab Active and Home Medications: Home Medications aspirin 81 mg tablet,delayed release 81 mg PO QDAY tab 02/09/15 [History Confirmed 05/27/17 Last Taken 05/26/17 09:00 81 mg] cholecalciferol (vitamin D3) 2,000 unit capsule 2,000 unit PO QDAY cap [History Confirmed 05/27/17 Last Taken 05/26/17 09:00 2,000 unit] coenzyme Q10 200 mg capsule 200 mg PO QDAY cap 02/09/15 [History Confirmed Last Taken 05/26/17 09:00 200 mg] cyanocobalamin (vit B-12) 1,000 mcg tablet 1,000 mcg PO QDAY tab 02/09/15 [ History Confirmed 05/27/17 Last Taken 05/26/17 09:00 1,000 mcg] multivitamin tablet 1 tab PO QDAY tab 02/09/15 [History Confirmed 05/27/17 Last Taken 05/26/17 09:00 1 tab] Clifford 3 Fish Oil 1000MG 1 tab PO DAILY 07/19/15 [History Confirmed 05/27/17 Last Taken 05/26/17 09:00 1 tab] Super B Complex 1 tab PO DAILY 07/19/15 [History Confirmed 05/27/17 Last Taken 05/26/17 09:00 1 tab] digoxin 125 mcg tablet 125 mcg PO QDAY 07/19/15 [History Confirmed 05/27/17 Last Taken 05/26/17 09:00 125 mcg] nitroglycerin 0.4 mg sublingual tablet 0.4 mg SUBLINGUAL Q5-15MIN PRN 07/19/15 [ History Confirmed 05/27/17 Last Taken Unknown] amiodarone 200 mg tablet 200 mg PO QDAY 30 Days #30 tab 07/11/16 [History Confirmed 05/27/17 Last Taken 05/26/17 09:00 200 mg] carvedilol 25 mg tablet 25 mg PO BID #180 tab 01/08/17 [Rx Confirmed 05/27/17 Last Taken 05/26/17 09:00 25 mg] gabapentin 600 mg tablet 600 mg PO qhs #30 tab 01/28/17 [Rx Confirmed 05/27/17 Last Taken 05/25/17 21:00 600 mg] potassium chloride ER 20 mEq tablet,extended release(part/cryst) 40 meq PO BID # 360 tab 01/28/17 [Rx Confirmed 05/27/17 Last Taken 05/26/17 09:00 40 meq] atorvastatin 40 mg tablet 40 mg PO QHS #90 tab 02/25/17 [Rx Confirmed 05/27/17 Last Taken 05/25/17 21:00 40 mg] losartan 25 mg tablet 25 mg PO QDAY 03/26/17 [History Confirmed 05/27/17 Last Taken 05/25/17 21:00 25 mg] Empagliflozin/Linagliptin [Glyxambi 10 mg-5 mg Tablet] 1 tablet PO DAILY [History Confirmed 05/27/17 Last Taken 05/26/17 09:00 1 tablet] Torsemide [Demadex] 10 mg PO HS 05/27/17 [History Confirmed 05/27/17 Last Taken 05/25/17 21:00] Torsemide [Demadex] 20 mg PO DAILY 05/27/17 [History Confirmed 05/27/17 Last Taken 05/26/17 09:00 20 mg] Warfarin [Coumadin] 2.5 mg PO WEEKLY 05/27/17 [History Confirmed 05/27/17 Last Taken 05/24/17 21:00 2.5 mg] Warfarin [Coumadin] 5 mg PO HS 05/27/17 [History Confirmed 05/27/17 Last Taken 05/25/17 21:00] Medical - DS: Hosp Hospital course: Mr. Stewart is a 72 year old M with a history of atrial fibrillation, type 2 diabetes, coronary artery disease, COPD (by PFTs in 2014). He presents with about 2 weeks of pulmonary symptoms. For about 2 weeks patient was around a friend to an upper respiratory tract infection. Shortly thereafter he developed a sore throat as well as sinus congestion and postnasal drip. He also developed a cough which has seemed to worsen during that time. His notes that the cough is very frequent, he's constantly bringing up yellowish sputum. She is also noted that he is quite wheezy. He does not use any bronchodilators or other pulmonary meds at baseline. He has been trying to use [id number] cough suppressants without much relief. On the day of admission he was coughing quite hard, when he expectorated sputum he noticed it was red, he continued to spit up bloody sputum for the next few hours. He is fairly certain this is coming from the lungs, also feels he may be having some postnasal drip which may be the source of the bleeding. He's had ongoing fullness in his ears and sinus congestion, but no facial pressure or pain. As noted, he's had some postnasal drip for the last 2 weeks. The hearing in his left ear is a little muffled, he cannot get his ears to equalize. Denies any nausea, vomiting, or abdominal pain. He's had some loose stools for about the last week. He's had decreased appetite. He's also had decreased oral fluid intake. He's had no antibiotic exposures. No chest pain/tightness/ squeezing/anginal symptoms. No lower extremity edema. No focal neurological symptoms. Because of the hemoptysis, he presents to the emergency room. Found to have significant wheezing and bronchospasm as well as rhonchi. Also found to have an INR of 6.7 and elevated creatinine 1.9, with a baseline creatinine of 1.5- 1.7. Sputum admitted for coagulopathy, hemoptysis and COPD exacerbation. Hemoptysis/ Aspirational PNA: The patient continued to have low grade hemoptysis during his stay in the hospital. He was initially treated by reversing his supratherapeutic coagulation, but when the hemoptysis persisted, CT chest was ordered, which noted a 3.6cm lung cavity likely an abscess. Patient was treated with ertapenum while in the hospital. The patient responded to the treatment very well. Pulmonary evaluated the patient and advised continuation of antibiotics. The patient will be discharged home on po clindamycin for one month. He will need to follow up with pulmonary and repeat imaging can be ordered to evaluate for resolution of this lesion. The aptient was evaluated by ST and educated regarding dysphagia and risks of aspiration. Its thought that aspiration was the cultprit for the lung abscess at this admission. HE will need outpatient ST COPD exacerbation: Likely from uri and aspirational PNA. TReated with st eroids , duonebs and antibiotics, at the time of discharge pt was doing well, no wheezing, ambulating ad bessie, Discharged on short term steroids and prn albuterol for now. Follow up with pcp and pulmonary AFib/ Supratherapeutic on COumadin: Patient had high INR on presentation, which improved with cessation of coumadin therapy, He usually takes 5mg coumadin daily and 2.5mg on saturday. Given we are placing the patient on long course of antibiotics. I have advised him to cut back his coumadin treatment. He will not take 2.5mg coumadin on and 5mg the rest of the days. Follow up with PCP for INR management. The rest of the stay in the hospital was uneventful. No changes in the home medications done except as listed above. patient educated at length regarding changes to his med regime. Discharge diagnosis: Lung abscess, afib, copd exacerbation. - Time Spent with Patient Total time spent providing and/or coordinating discharge services: Greater than 30 minutes Medical - DS: Exam - Constitutional Vitals: Vital Signs Temp Pulse Pulse Resp BP Pulse Ox 06/01/17 11:18 72 16 06/01/17 11:08 97.4 F 73 14 106/70 93 06/01/17 07:39 97.4 F 71 14 122/84 95 06/01/17 07:09 70 16 06/01/17 03:44 97.5 F 70 18 115/83 92 06/01/17 00:00 97.0 F 60 16 120/78 05/31/17 21:33 75 16 05/31/17 19:30 75 16 05/31/17 19:16 97.4 F 69 16 117/80 96 05/31/17 16:00 97.3 F 69 16 117/78 96 05/31/17 15:59 75 16 05/31/17 12:01 96 05/31/17 11:58 75 16 05/31/17 11:41 97.5 F 70 18 118/76 95 Intake and Output 05/31/17 06/01/17 06/01/17 21:59 05:59 13:59 Intake Total 1140 / 1140 325 / 325 Output Total 3225 / 3225 650 / 650 900 / 900 Balance -2085 / -2085 -325 / -325 -900 / -900 Intake: Oral 1140 / 1140 325 / 325 Output: Void Amount 3225 / 3225 650 / 650 900 / 900 Other: Meal Dinner Breakfast Percent of Meal Consumed 100% 100% Feeding Ability Independent Independent # Voids 2 Weight 227 lb Additional comments: Constitutional; Afebrile, cooperative, alert, not in distress. Eyes- No icterus, , No periorbital swelling Ears- Ext ear normal, hearing normal to conversation. Neck- Midline trachea, supple Respiratory system: Air Entry equal on both sides, No crackles or wheezing, no rhonchi. CVS- Rate rhythm irregular, S1,S2 heard, no gallop, no rub. Abdomen- Soft nontender abdomen, no organomegaly, no tenderness, no guarding or rigidity, [employer]- AOOx3, moving all extremities, no gross focal deficit noted. Medical - DS: Data Labs on day of discharge: Labs from last 24 hours 06/01/17 06/01/17 06/01/17 04:00 04:00 04:00 WBC 13.7 H RBC 5.22 Hgb 14.5 Hct 45.8 MCV 87.8 MCH 27.8 MCHC 31.7 RDW 17.9 H Plt Count 212 MPV 8.0 Gran % 86.4 H Lymph % (Auto) 8.6 L [place] % (Auto) 4.5 Eos % (Auto) 0.4 Baso % (Auto) 0.1 Gran # 11.8 H Lymph # (Auto) 1.2 L [place] # (Auto) 0.6 Eos # (Auto) 0.1 Baso # (Auto) 0 PT 28.9 H INR 2.6 H Sodium 142 Potassium 4.1 Chloride 102 Carbon Dioxide 27 Anion Gap 13.0 BUN 39 H Creatinine 1.4 H GFR Calculation 51 Glucose 152 H Calcium 8.8 Preliminary micro results at discharge 05/30/17 18:38 Sputum Culture - Preliminary Sputum - Expectorated Medical - DS: A/P - Patient/Caregiver Discharge Instructions Activity: increase activity as tolerated Diet: Cardiac, Consistent Carbohydrate Additional Instructions: Follow up with Dr. Perera on 06/07 at 11:30 am. Follow up with Dr BROWN (pulmonary in 2 weeks) You will take Clindamycin 600mg (2 cap) three times a day for 30 days or as directed by the lung specialist. Your Dose of Warfarin is adjusted to 2.5mg on Saturday, Saturday and Saturday, and 5mg on rest of days, Please ensure you have your INR checked on 06/03 at your PCP office and dose of coumadin adjusted. Go to the ER if worsening hemoptysis, chest pain, shortness of breath or any other concerning symptom. A referral for outpatient ST will be made for you. A agency should get in touch with you within 1 week, call your PCP office should you experience any delay. - Follow up Plan Follow up with: Fletcher Perera MD [Primary Care Provider] - 06/07/17 11:30 am Red Brown MD [Physician] - Disposition: Home, Self-Care Prognosis: Fair Rehab Potential: Fair I certify that the patient requires SNF services: No Overall status at discharge: patient is progressing back to baseline Medical - DS: Qual - VTE Deep Vein Thrombosis/Pulmonary Embolism Present on Admission: No
== END 2017-06-01 12:50 | disposition home or self-care (01) | DRG 190 ==
LOC: ED 17:50 → MEDSUR 21:46
PROVIDERS: ADMIT Internal Medicine; ATTEND Internal Medicine

== ENCOUNTER 2017-09-03 16:24 | Inpatient (IN) ==
[2017-09-03] MEDS ORDERED: ONDANSETRON 4 MG/2 ML VIAL IV ONE (16:49)
[2017-09-03] MEDS ORDERED: HYDROmorphone 2 MG/ML VIAL IV PRN (16:49)
--- NOTE | 2017-09-03 17:30 | XRay Report ---
CLINICAL INFORMATION: Diverticulitis COMPARISON: 08/21/2017 FINDINGS: The stool gas pattern is unremarkable. There is no free air, soft tissue mass, organomegaly or pathologic calcification. IMPRESSION: Normal abdomen Interpreted and Authenticated by: Stanley Diop 09/03/17
[2017-09-03 17:46] LABS: Basophils # (Auto) 0 K/mcL (0.0-0.3); Basophils % (Auto) 0.2 % (0.0-2.0); Eosinophils # (Auto) 0.1 K/mcL (0.0-0.7); Eosinophils % (Auto) 0.6 % (0.0-7.0); Lymphocytes # (Auto) 1.3 K/mcL (1.5-4.8); Lymphocytes % (Auto) 13.1 % (15.5-49.0); Mean Cell Volume 83.4 fL (80.0-100.0); Mean Corpuscular HGB Conc 31.1 g/dL (31.0-36.0); Mean Corpuscular Hemoglobin 25.9 pg (26.0-34.0); Monocytes # (Auto) 0.5 K/mcL (0.1-0.9); Monocytes % (Auto) 5.1 % (1.0-12.0); Platelet Count 214 K/mcL (140-440); Red Cell Distribution Width 20.8 % (11.5-14.5)
[2017-09-03 17:58] LABS: ALT/SGPT 20 U/l (0-40); Albumin 3.9 gm/dL (3.2-5.2); Albumin/Globulin Ratio 1.3 (1.0-2.3); Alkaline Phosphatase 117 U/L (39-117); Amylase 37 U/L (28-100); Blood Urea Nitrogen 22 mg/dl (8-23); Lipase 29 U/L (7-60)
--- NOTE | 2017-09-03 19:18 | Ultrasound Report ---
CLINICAL INFORMATION: Elevated bilirubin COMPARISON: None. FINDINGS: Liver is normal size and mildly hyperechoic compatible with fatty change or other global parenchymal process. No focal hepatic lesion. The gallbladder wall is massively thickened - 9 mm echogenic multiple small stones. Common bile duct is normal with 5 mm. Pericholecystic fluid noted. The pancreas is normal IMPRESSION: Severe cholecystitis. Interpreted and Authenticated by: Stanley Diop 09/03/17
--- NOTE | 2017-09-03 19:34 | Emergency Department Note ---
Abdominal Pain HPI - General Chief Complaint: Abdominal Pain Stated Complaint: Abdominal discomfort, nausea, vomiting. Time Seen by Provider: 09/03/17 16:44 Source: patient Mode of arrival: ambulatory Limitations: no limitations - History of Present Illness HPI Narrative: 72-year-old male with a 2-1/2 month history of upset stomach bloating and dry heaves. Lately he is also been having fever and chills. Symptoms been worsening over this last week. He did have a recent CT scan and echocardiogram which I will review below. CT scan did show diverticulitis for which she is on ciprofloxacin twice a day. Also noted gallstones. He reports not eating much, decreased appetite, although he does say he has been more bloated despite not eating. He has multiple medical problems - Related Data Home Medications Medication Instructions Recorded Confirmed aspirin 81 mg tablet,delayed 81 mg PO QDAY tab 02/09/15 08/21/17 release cholecalciferol (vitamin D3) 2,000 2,000 unit PO QDAY cap 02/09/15 08/21/17 unit capsule coenzyme Q10 200 mg capsule 200 mg PO QDAY cap 02/09/15 08/21/17 cyanocobalamin (vit B-12) 1,000 1,000 mcg PO QDAY tab 02/09/15 08/21/17 mcg tablet multivitamin tablet 1 tab PO QDAY tab 02/09/15 08/21/17 Mcdonald 3 Fish Oil 1000MG 1 tab PO DAILY 07/19/15 08/21/17 Super B Complex 1 tab PO DAILY 07/19/15 08/21/17 nitroglycerin 0.4 mg sublingual 0.4 mg SUBLINGUAL Q5-15MIN PRN 07/19/15 08/21/17 tablet amiodarone 200 mg tablet 200 mg PO QDAY 30 Days #30 tab 07/11/16 08/21/17 losartan 25 mg tablet 25 mg PO QDAY 03/26/17 08/21/17 torsemide 10 mg tablet 20 mg PO BID tab 08/21/17 08/21/17 Previous Rx's Medication Instructions Recorded carvedilol 25 mg tablet 25 mg PO BID #180 tab 01/08/17 gabapentin 600 mg tablet 600 mg PO qhs #30 tab 01/28/17 atorvastatin 40 mg tablet 40 mg PO QHS #90 tab 02/25/17 Albuterol Sulfate [Proventil Hfa] 2 puff IH Q4H PRN #1 hfa.aer.ad 06/01/17 empagliflozin 10 mg-linagliptin 5 1 tab PO DAILY #90 tab 06/07/17 mg tablet potassium chloride ER 20 mEq 40 meq PO BID #360 tab 06/10/17 tablet,extended release(part/cryst) digoxin 125 mcg tablet 125 mcg PO QDAY #90 tab 08/06/17 warfarin 5 mg tablet 5 mg PO .COMPLEX #1 tab 08/20/17 ranitidine 150 mg tablet 150 mg PO BID #60 tab 08/21/17 clindamycin HCl 300 mg capsule 300 mg PO BID #14 cap 09/02/17 Allergies Allergy/AdvReac Type Severity Reaction Status Date / Time Penicillins Allergy Mild Hives Verified 08/21/17 14:08 Sulfa (Sulfonamide Allergy Mild Hives Verified 08/21/17 14:08 Antibiotics) ethacrynic acid AdvReac Mild Diarrhea Verified 08/21/17 14:08 spironolactone AdvReac Mild vomiting Verified 08/21/17 14:08 Review of Systems All systems ED: reviewed and negative except as stated. Abdominal Pain PMH - Past Medical History Attestation: Yes: The following information was validated with the patient. Medical history: Reports: arthritis, atrial fibrillation, CHF, COPD, coronary artery disease, DM, hyperlipidemia, hypertension, myocardial infarction, renal disease, other (Essential tremor, BPH, cardiomyopathy) Reports: diverticulitis Surgical history ED: Reports: angioplasty/stent, colectomy, colostomy, hip replacement (Bilateral), orthopedic, other (Lumbar spine fusion, shoulder), pacemaker/AICD - Social History Smoking status: Former smoker Alcohol use: Reports: None Drug use: Reports: none Physical Exam No acute distress resting. Normocephalic atraumatic. Conjunctive are clear sclerae nonicteric. No nasal discharge or congestion. Oropharynx pink and moist. Neck is supple without lymphadenopathy or thyromegaly. Heart is regular rate and rhythm no murmurs appreciated. Lungs are clear to auscultation bilaterally without wheezes rales rhonchi or respiratory distress. Occasional nonproductive cough. Abdomen is diffusely tender, but no peritoneal signs or guarding. Normoactive bowel sounds. No pedal edema. +2 radial pulse. Alert and oriented Limitations: no limitations Course Vital Signs Temperature 95.8 F L 01/23/18 16:24 Pulse Rate 70 09/03/17 16:24 Respiratory Rate 18 09/03/17 16:24 Blood Pressure 124/85 09/03/17 16:24 Pulse Oximetry (%) 96 09/03/17 16:24 Temperature 95.8 F L 09/03/17 16:24 Pulse Rate 70 09/03/17 19:06 Respiratory Rate 14 09/03/17 19:06 Blood Pressure 136/102 09/03/17 19:06 Pulse Oximetry (%) 94 09/03/17 19:06 Abdominal Pain - Lab Data Lab results reviewed: Yes I reviewed the patient's lab results. Result diagrams: 09/03/17 17:05 09/03/17 17:05 Lab Results 09/03/17 09/03/17 09/03/17 Range/Units 17:05 17:05 17:05 WBC 10.0 (4.5-11.0) K/mcL RBC 5.90 (4.50-5.90) M/mcL Hgb 15.3 (13.5-16.5) g/dL Hct 49.2 (41.0-55.0) % MCV 83.4 (80.0-100.0) fL MCH 25.9 L (26.0-34.0) pg MCHC 31.1 (31.0-36.0) g/dL RDW 20.8 H (11.5-14.5) % Plt Count 214 (140-440) K/mcL MPV 9.1 (7.4-10.4) fL Gran % 81.0 H (38.0-78.0) % Lymph % (Auto) 13.1 L (15.5-49.0) % [place] % (Auto) 5.1 (1.0-12.0) % Eos % (Auto) 0.6 (0.0-7.0) % Baso % (Auto) 0.2 (0.0-2.0) % Gran # 8.1 H (1.8-8.0) K/mcL Lymph # (Auto) 1.3 L (1.5-4.8) K/mcL [place] # (Auto) 0.5 (0.1-0.9) K/mcL Eos # (Auto) 0.1 (0.0-0.7) K/mcL Baso # (Auto) 0 (0.0-0.3) K/mcL VBG Lactic Acid 2.7 H (0.5-2.2) mmol/L Sodium 140 (133-145) mmol/L Potassium 4.6 (3.3-5.1) mmol/L Chloride 101 (96-108) mmol/L Carbon Dioxide 21 L (22-30) mmol/L Anion Gap 18.0 H (8-16) BUN 22 (8-23) mg/dl Creatinine 1.7 H (0.7-1.2) mg/dl GFR Calculation 40 Glucose 236 H (70-105) mg/dL Calcium 9.2 (8.6-10.4) mg/dl Total Bilirubin 2.5 H (0.0-1.0) mg/dL AST 26 (0-37) U/l ALT 20 (0-40) U/l Alkaline Phosphatase 117 (39-117) U/L Total Protein 6.8 (5.9-8.4) gm/dL Albumin 3.9 (3.2-5.2) gm/dL Globulin 2.9 (2.2-3.7) gm/dL Albumin/Globulin Ratio 1.3 (1.0-2.3) Amylase 37 (28-100) U/L Lipase 29 (7-60) U/L - Radiology Data Radiology results reviewed: Yes I reviewed the patient's radiology results. Reviewed CT scan from 08/30/2017 which showed multiple gallstones, mild diverticulitis, right pleural effusion small and a small pericardial effusion Reviewed echocardiogram from 08/30/2017 which showed an ejection fraction of 15- 20% with a small pericardial effusion and moderate pulmonary hypertension. Diastolic dysfunction is noted as well Abdominal x-rays 2 views were done today which showed no free air under the diaphragm no acute findings Ultrasound of the gallbladder tonight shows severe cholecystitis with the common bile duct at 5 mm show no dilatation - EKG Data EKG attestation: Yes I reviewed and interpreted this EKG. EKG results narrative: EKG was paced with a rate of 72 Disposition Pt seen by COMMERCIAL CREDIT SPECIALIST/PA only: No Clinical Impression: Diverticulitis, CKD (chronic kidney disease), stage III Cholecystitis, acute with cholelithiasis Qualifiers: Cholelithiasis location: gallbladder Biliary obstruction: with biliary obstruction Qualified Code(s): K80.01 - Calculus of gallbladder with acute cholecystitis with obstruction Congestive heart failure Qualifiers: Congestive heart failure type: systolic Congestive heart failure chronicity: unspecified Qualified Code(s): I50.20 - Unspecified systolic (congestive) heart failure Summary: He was initially treated with Dilaudid and Zofran during workup I discussed his case with Dr. Pappas after seeing his elevated bilirubin although this is chronically elevated. He recommended getting an ultrasound of the liver and gallbladder I discussed the ultrasound results and laboratory with Dr. Estes-he recommended hospitalization but because the patient has multiple other medical problems including severe CHF we consulted the hospitalist Dr. Blount, the hospitalist, agreed to accept the patient for hospital admission and consult Dr. Estes for surgery consideration for the gallbladder. We will continue his ciprofloxacin for the diverticulitis Disposition: Xfer As Inpt ([facility]) Condition: Serious Referrals: Fletcher Perera MD [Primary Care Provider] -
[2017-09-03] MEDS ORDERED: ACETAMINOPHEN 325 MG TABLET PO PRN (21:17)
[2017-09-03] MEDS ORDERED: NITROGLYCERIN 0.4 MG TAB.SUBL SL PRN (21:17)
[2017-09-03] MEDS ORDERED: ONDANSETRON 4 MG/2 ML VIAL IV PRN (21:17)
[2017-09-03] MEDS ORDERED: DEXTROSE 31 GM ORAL.SUSP PO PRN (21:52)
[2017-09-03] MEDS ORDERED: DEXTROSE 50% 50 ML VIAL IV PRN (21:52)
--- NOTE | 2017-09-03 22:00 | Internal Med History&Physical ---
Medical - H&P: HPI Patient information: Note initiated : 09/03/17 at 9:56 pm Service Date, if different from initiated Date: [] Patient: Jameson Stewart 72 y/o M admitted on 09/03/17 for Abdominal discomfort , nausea, vomiting.. Chief Complaint: [] History of present illness: Mr. Stewart is a 72 year old Male with multiple medical issues, presents to the hospital with abdominal pain. The patient notes that he has been having intermittent abdominal pain in the lower abdomen since novermber, the patient notes this is intermittent, in nature sharp, associated with some loose bowels, and has been progressively getting worse, he notes that he has been having dyspepsia symptoms, not able to eat or d rink much especially fatty food, which will exacerbate his symptoms. He also has increased shortness of beath and edema in this lower extremities he was seen by dr alcantar recently, he underwent a CT Abdomen and pelvis and this showed diverticulitis, clindamycin was called in for same? today the patient did not feel well, and was therefore directed to the ER. Recently he also had worsening edema, and his dose of diuretics was increased. echo ordered which shows lvef of 15-20%, grade 3 diastolic dysfunction. last echo on file is 2015 which shows lvef of 30%, and grade 3-4 diastolic dysfunction, pt does have pacemaker, aicd in place. Pt notes he is not too surprised by his echo results and reports his ejection fraction was around 20-25 %? I do not have this echo report. The patient otherwise has no chest pain, no shorntess of breath, has nausea, no headache, no profuse diarrhea, no constipation, no fever or chills. The patient in the ER underwent X ray abdomen and labs, x ray was neg, but his labs showed inez of 2.0, later usg abdomen was done which showed significantly thickened gall bladder wall with periholecystic fluid, suggestive of cholecysitits. Dr Estes was called who will be consulting on the patient but given his extensive medical history he is being admitted to medicine for further management. The patients was at bedside, plan of care reviewed with them, they are fully aware of the overall poor prognosis of the patient The pt has ET of 150feet, no cp, during exertion, he has ckd, DM, he has cva, CAD mi s/p stent placement, CHF with poor ejection fraction, HTN. Pt desires to be full code for now. All systems: reviewed and no additional remarkable complaints except as stated ( as per HPI) Medical - H&P: PMH Medical history: Medical History (Last Reviewed 01/28/17 @ 11:11 by Fletcher Perera MD) Acute kidney failure (Acute) Dehydration (Acute) Supratherapeutic INR (Resolved) Bronchitis (Acute) COPD exacerbation (Acute) Hemoptysis (Acute) Pneumonia involving right lung (Acute) Gastritis (Acute) Diverticulitis (Acute) Cholecystitis, acute with cholelithiasis (Acute) Pneumonia (Acute) Diabetes mellitus type 2, controlled, with complications (Chronic) Benign essential tremor (Chronic) CKD (chronic kidney disease), stage III (Chronic) Acute diarrhea (Acute) Pitting edema (Acute) Paroxysmal atrial fibrillation (Chronic) Chronic kidney disease, stage II (mild) (Chronic) Hypertensive renal disease (Chronic) CKD (chronic kidney disease), stage III (Chronic) History of echocardiogram (Chronic 07/20/15) Congestive heart failure (Chronic) Diverticulitis large intestine (Chronic) Renal insufficiency (Chronic) Lower extremity edema (Chronic) snf current use of anticoagulant therapy (Chronic) Diverticulosis of colon (Chronic) Hypertension, essential, benign (Chronic) Hyperlipidemia (Chronic) Raynaud's syndrome (Chronic) Diabetes mellitus, type II (Chronic) Degenerative disc disease (Chronic) History of colonic polyps (Chronic) Cardiomyopathy, secondary (Chronic) CAD (coronary artery disease) (Chronic) BPH without urinary obstruction (Chronic) Ankle fracture (Resolved) Nasal fracture (Resolved) Radial fracture (Resolved) Ribs, multiple fractures (Resolved) Surgical history: Past Surgical History (Last Reviewed 01/28/17 @ 11:11 by Fletcher Perera MD) History of colonoscopy (Chronic 08/29/15) History of esophagogastroduodenoscopy (Chronic 07/22/15) History of pacemaker (Chronic) History of coronary artery stent placement (Chronic) History of diverticular abscess (Resolved) History of hip surgery (Resolved 09/27/14) History of lumbosacral spine surgery (Resolved) History of right hip replacement (Resolved) History of shoulder surgery (Resolved) Status post lumbar discectomy (Resolved) Pertinent family history: Family History (Last Reviewed 01/28/17 @ 11:11 by Fletcher Perera MD) Father Abdominal aortic aneurysm Atherosclerosis of coronary artery Essential hypertension Osteoarthritis Mother Atherosclerosis of coronary artery Diabetes mellitus Essential hypertension Medical - H&P: Meds Home Medications Medication Instructions Recorded Confirmed Type aspirin 81 mg tablet,delayed 81 mg PO QDAY tab 02/09/15 09/03/17 History release cholecalciferol (vitamin D3) 2,000 2,000 unit PO QDAY cap 02/09/15 09/03/17 History unit capsule coenzyme Q10 200 mg capsule 200 mg PO QDAY cap 02/09/15 09/03/17 History cyanocobalamin (vit B-12) 1,000 1,000 mcg PO QDAY tab 02/09/15 09/03/17 History mcg tablet multivitamin tablet 1 tab PO QDAY tab 02/09/15 09/03/17 History [place] 3 Fish Oil 1000MG 1 tab PO DAILY 07/19/15 09/03/17 History Super B Complex 1 tab PO DAILY 07/19/15 09/03/17 History nitroglycerin 0.4 mg sublingual 0.4 mg SUBLINGUAL Q5-15MIN PRN 07/19/15 History tablet amiodarone 200 mg tablet 200 mg PO QDAY 30 Days #30 tab 07/11/16 09/03/17 History carvedilol 25 mg tablet 25 mg PO BID #180 tab 01/08/17 09/03/17 Rx gabapentin 600 mg tablet 600 mg PO qhs #30 tab 01/28/17 09/03/17 Rx atorvastatin 40 mg tablet 40 mg PO QHS #90 tab 02/25/17 09/03/17 Rx losartan 25 mg tablet 25 mg PO QDAY 03/26/17 09/03/17 History Albuterol Sulfate [Proventil Hfa] 2 puff IH Q4H PRN #1 hfa.aer.[email or web address] 06/01/1709/03 Rx empagliflozin 10 mg-linagliptin 5 1 tab PO DAILY #90 tab 06/07/17 09/03/17 Rx mg tablet potassium chloride ER 20 mEq 40 meq PO BID #360 tab 06/10/17 09/03/17 Rx tablet,extended release(part/cryst) digoxin 125 mcg tablet 125 mcg PO QDAY #90 tab 08/06/17 09/03/17 Rx warfarin 5 mg tablet 5 mg PO .COMPLEX #1 tab 08/20/17 09/03/17 Rx ranitidine 150 mg tablet 150 mg PO BID #60 tab 08/21/17 09/03/17 Rx torsemide 10 mg tablet 20 mg PO BID tab 08/21/17 09/03/17 History clindamycin HCl 300 mg capsule 300 mg PO BID #14 cap 09/02/17 09/03/17 Rx Allergies Allergy/AdvReac Type Severity Reaction Status Date / Time Penicillins Allergy Mild Hives Verified 08/21/17 14:08 Sulfa (Sulfonamide Allergy Mild Hives Verified 08/21/17 14:08 Antibiotics) ethacrynic acid AdvReac Mild Diarrhea Verified 08/21/17 14:08 spironolactone AdvReac Mild vomiting Verified 08/21/17 14:08 Medical - H&P: Exam - Constitutional Vitals: Temp Pulse Resp BP Pulse Ox 98.3 F 70 20 132/93 95 09/03/17 21:10 09/03/17 21:10 09/03/17 21:10 09/03/17 21:10 09/03/17 21:10 Exam: GENERAL: The patient is a well-developed, well-nourished in no apparent distress. Is alert and oriented x3. VITAL SIGNS: Reviewed and as noted elsewhere. HEENT: Head is normocephalic and atraumatic. Extraocular muscles are intact. Pupils are equal, round, and reactive to light. Nares appeared normal. Mouth appears any without lesions. Mucous membranes are moist. NECK: Normal to inspection, Supple, No lymphadenopathy or thyromegaly. no JVP LUNGS: Air entry equal on both sides, no wheezing, crackles or rhonchi noted. No accessory muscles of respiration HEART: Regular rate and irregular rhythm normal, S1 and S2 heard, no Gallop, S3 or Rub Noted, systoilc murmur mitral region. ABDOMEN: Soft, nontender, and nondistended. Positive bowel sounds. No hepatosplenomegaly was noted. (pt received pain meds int he ER ) EXTREMITIES: No cyanosis, clubbing, rash, lesions , edema present ++ NEUROLOGIC: Cranial nerves II through XII are grossly intact. Motor and Sensory System Grossly Intact PSYCHIATRIC: Normal affect, Normal Mood. Appropriate Behavior. SKIN: No ulceration or wounds noted, No jaundice, No rash noted. Medical - H&P: Reslt - Labs CBC & Chem 7: 09/03/17 17:05 09/03/17 17:05 Labs: Short CBC 09/03/17 Range/Units 17:05 WBC 10.0 (4.5-11.0) K/mcL Hgb 15.3 (13.5-16.5) g/dL Hct 49.2 (41.0-55.0) % Plt Count 214 (140-440) K/mcL BMP 09/03/17 17:05 Sodium 140 Potassium 4.6 Chloride 101 Carbon Dioxide 21 L BUN 22 Creatinine 1.7 H Glucose 236 H Calcium 9.2 Liver Function 09/03/17 Range/Units 17:05 Total Bilirubin 2.5 H (0.0-1.0) mg/dL AST 26 (0-37) U/l ALT 20 (0-40) U/l Alkaline Phosphatase 117 (39-117) U/L Albumin 3.9 (3.2-5.2) gm/dL Medical - H&P: A/P - Narrative A/P Narrative: A/P Acute cholecystitis: On USG, pt has no abdominal pain, but no e/o ascitis on usg either, clinicially has dyspepsia, Gen surgery consulted, IV antibiotics for now. Diverticulitis: Noted on recent CT, On IV aztreonam and Iv flagyl for now, NPO MN Pre op eval: Patient will be high risk from cardiovascular stand point. pt is does not have any active modifiable risk factors, he will continue on beta blockers and asa, statin throughout the procedure, as he has h/o cad, s/p stent , cva. Will discuss with surgeon if any other alternatives are feasible, afib : rate controlled on amiodarone, c oreg, on coumadin with therapeutic INR, will continue all for now, hold coumadin, will not reverse anticoagulatino untill surgery evaluates and decides on surgery, if needed ffp can be given in AM if surgery planned in AM CHF: severe systolic and diastoilc heart failure, h/o cardiac arrest in past, s/ p pacemaker/ aicd placement, clinically not in volume overload, patient has edema feet, but exam is clear, no JVP. continue chf meds for now, careful hydration. IV fluids 250 cc for now today as pt has lactic acid elevation, hold diuretics. sepsis: elevated lactic acid, diverticulitis/ cholecysitis, gentle hydration, trend lactic acid, IV antibiotics COPD: no wheeze on exam, duonebs q6h jeffery for now. CAD/ CVA/ TN: On asa, statin, continue for now, no active chest pain. ekg shows paced rhythm. Lung cavity: Noted in may last year, thought to be secondary to lung abscess , I do not see a repeat CT scan to evaluate clearnce of the cavity, will repeat CT tomorrow. IF still present, may need further workup. DM: Hold oral meds, Sq lantus and ssi insulin for now, monitor glucose CKD: creat is stable at 1.6, monitor HTN: BP stable, continue coret, hol;d OMAR/ ARB as surgery is contemplated. DVT on coumadin with therapeutic INR full code NPO MN Status. Pt has overall very poor prognosis, remington and his aware of same. Social History - Tobacco smoking status: Former smoker - Quit Details quit date: 07/31/14 - Alcohol alcohol intake frequency: holiday/special occasion only
[2017-09-03] MEDS: INSULIN GLARGINE, HUMAN 1 UNIT/0.01 ML SQ SCH (22:19)
[2017-09-03] MEDS: ATORVASTATIN 20 MG TABLET PO SCH (22:19)
[2017-09-03] MEDS: CARVEDILOL 12.5 MG TABLET PO SCH (22:19)
[2017-09-03] MEDS: GABAPENTIN 300 MG CAPSULE PO SCH (22:20)
[2017-09-03] MEDS ORDERED: 0.9 % SODIUM CHLORIDE 250 ML IV ONE (22:29)
[2017-09-03] MEDS: AZTREONAM 2 GM VIAL IV SCH (22:33)
[2017-09-03] MEDS: metroNIDAZOLE 500 MG/100 ML BAG IV SCH (22:35)
[2017-09-04] MEDS: IPRATROPIUM/ALBUTEROL 3 ML AMPUL.NEB NEB SCH ×4 (00:36→19:20)
[2017-09-04 06:06] LABS: Basophils # (Auto) 0 K/mcL (0.0-0.3); Basophils % (Auto) 0.4 % (0.0-2.0); Eosinophils # (Auto) 0.1 K/mcL (0.0-0.7); Granulocytes % (Auto) 74.6 % (38.0-78.0); Lymphocytes # (Auto) 1.5 K/mcL (1.5-4.8); Lymphocytes % (Auto) 16.3 % (15.5-49.0); Mean Cell Volume 82.5 fL (80.0-100.0); Mean Corpuscular HGB Conc 31.2 g/dL (31.0-36.0); Mean Corpuscular Hemoglobin 25.7 pg (26.0-34.0); Monocytes # (Auto) 0.7 K/mcL (0.1-0.9); Monocytes % (Auto) 7.7 % (1.0-12.0); Platelet Count 171 K/mcL (140-440); RBC 5.53 M/mcL (4.50-5.90); Red Cell Distribution Width 19.5 % (11.5-14.5)
--- NOTE | 2017-09-04 06:15 | XRay Report ---
CLINICAL INFORMATION: CHF COMPARISON: 08/13/2017 FINDINGS: Moderate cardiomegaly has increased slightly. Pacemaker defibrillator and leads in stable satisfactory position. Mediastinum is unremarkable. Pulmonary vessels now mildly distended and there is minimal interstitial edema in both lungs. No infiltrates. Tiny bilateral pleural effusions are noted IMPRESSION: Mild CHF Interpreted and Authenticated by: Stanley Diop 09/04/17
[2017-09-04 06:16] LABS: ALT/SGPT 24 U/l (0-40); Albumin 3.2 gm/dL (3.2-5.2); Albumin/Globulin Ratio 1.3 (1.0-2.3); Alkaline Phosphatase 95 U/L (39-117); Bilirubin,Direct 0.6 mg/dL (0.0-0.3); Blood Urea Nitrogen 23 mg/dl (8-23); Gamma Glutamyl Transpeptidase 70 U/L (8-61); Uric Acid 7.5 mg/dL (2.5-8.0)
[2017-09-04] MEDS: AZTREONAM 2 GM VIAL IV SCH ×3 (06:40→22:45)
[2017-09-04] MEDS: metroNIDAZOLE 500 MG/100 ML BAG IV SCH ×3 (08:11→22:46)
[2017-09-04] MEDS: CARVEDILOL 12.5 MG TABLET PO SCH ×2 (08:11→17:36)
[2017-09-04] MEDS: AMIODARONE HCL 200 MG TABLET PO SCH (08:11)
[2017-09-04] MEDS: VITAMIN D3 1,000 UNIT TABLET PO SCH (08:12)
[2017-09-04] MEDS: CYANOCOBALAMIN (VITAMIN B-12) 500 MCG TABLET PO SCH (08:12)
[2017-09-04] MEDS: INSULIN LISPRO 1 UNIT/0.01 ML UNIT SQ SCH ×4 (08:43→21:26)
[2017-09-04] MEDS: ASPIRIN 81 MG TAB.CHEW PO SCH (08:45)
--- NOTE | 2017-09-04 12:49 | General Surgery Consult Note ---
History of Present Illness Patient information: Note initiated : 09/04/17 at 12:42 pm Service Date, if different from initiated Date: [] Patient: Jameson Stewart 72 y/o M admitted on 09/03/17 for Cholecystitis with Cholelithiasis, Diverticulitis. Chief Complaint: [] Reason for consult: abdominal pain Requesting physician: Rina Blount History of present illness: 72-year-old male who is admitted with abdominal pain, postprandial bloating; nausea and vomiting. The patient has been quite symptomatic. He states that he has constant nausea and belching. He has regular small bowel movements and denies having diarrhea. He states that he never completely empties his colon. He has a history of diverticulitis and underwent emergency operation for perforated diverticulitis with peritonitis about 8 years ago. He later had colostomy takedown. He had a CT scan on 30 August 2017. This showed mild diverticulitis of the descending sigmoid junction and cholelithiasis. He had an ultrasound done last evening which showed thickening of the gallbladder wall and the known gallstones. He however has had thickening of the gallbladder wall for some years and this was present on CT scan in 2014. He has elevated bilirubin but this too has been 2 or greater since 2015. He has not had any elevated transaminases. The patient specifically denies having any epigastric or right upper quadrant tenderness or pain. Examinations by Dr. Batista and the emergency room doctors have not revealed any upper abdominal tenderness. The patient has severe ischemic cardiomyopathy with left ventricular ejection fraction of 15-20%. He also has moderate to severe diastolic dysfunction and right heart failure. He has had an AICD placement. He does not have any chest pain associated with activity or at rest however he does have severe dyspnea on exertion and can ambulate less than 100 feet without severe fatigue. He has had intermittent peripheral edema and is on torsemide with marginal control of his peripheral edema. Review of Systems - Constitutional anorexia, fatigue, malaise, weakness - EENT Nose, mouth and throat: no dysphagia, no headache(s) - Cardiovascular dyspnea on exertion, orthopnea, palpatations, no chest pain at rest, no chest pain with activity - Respiratory dyspnea on exertion, no cough, no wheezing, no chest congestion - Gastrointestinal abdominal pain, bloating, change in bowel habits, constipation, dyspepsia, early satiety, nausea, vomiting - Genitourinary urinary frequency, urinary hesitancy, urinary urgency, no dysuria - Musculoskeletal arthralgias, back pain, joint swelling, stiffness - Integumentary no pruritus, no rash, no jaundice - Neurological no confusion, no focal weakness, no memory loss, no syncope - Psychiatric no anxiety, no confusion, no depression - Endocrine fatigue, palpitations - Hematologic/Lymphatic no easy bleeding, no easy bruising, no lymphadenopathy - Allergic/Immunologic no tongue swelling, no itchy eyes, no uticaria, no wheezing, no lip swelling Past History Past medical history: Chronic anticoagulant therapy Chronic obstructive lung disease Diabetes mellitus Benign essential tremor Chronic kidney disease Chronic atrial fibrillation Ischemic cardiomyopathy with poorly compensated congestive heart failure status post AICD placement History of diverticulitis with perforation status post resection and reanastomosis Coronary artery disease status post myocardial infarction status post coronary artery intervention and stenting Past surgical history: AICD placement Coronary artery stenting LAD Right hip arthroplasty Lumbosacral spine surgery with fusion Right shoulder arthroplasty Sigmoid resection with colostomy Colorectal anastomosis for colostomy closure Past family history: Father age 89 with atherosclerotic heart disease hypertension and abdominal aortic aneurysm Mother with atherosclerotic heart disease diabetes mellitus and essential hypertension Past social history: Former smoker Occasional alcohol use Medications and Allergies Home Medications Medication Instructions Recorded Confirmed Type aspirin 81 mg tablet,delayed 81 mg PO QDAY tab 02/09/15 09/03/17 History release cholecalciferol (vitamin D3) 2,000 2,000 unit PO QDAY cap 02/09/15 09/03/17 History unit capsule coenzyme Q10 200 mg capsule 200 mg PO QDAY cap 02/09/15 09/03/17 History cyanocobalamin (vit B-12) 1,000 1,000 mcg PO QDAY tab 02/09/15 09/03/17 History mcg tablet multivitamin tablet 1 tab PO QDAY tab 02/09/15 09/03/17 History [place] 3 Fish Oil 1000MG 1 tab PO DAILY 07/19/15 09/03/17 History Super B Complex 1 tab PO DAILY 07/19/15 09/03/17 History nitroglycerin 0.4 mg sublingual 0.4 mg SUBLINGUAL Q5-15MIN PRN 07/19/15 History tablet amiodarone 200 mg tablet 200 mg PO QDAY 30 Days #30 tab 07/11/16 09/03/17 History carvedilol 25 mg tablet 25 mg PO BID #180 tab 01/08/17 09/03/17 Rx gabapentin 600 mg tablet 600 mg PO qhs #30 tab 01/28/17 09/03/17 Rx atorvastatin 40 mg tablet 40 mg PO QHS #90 tab 02/25/17 09/03/17 Rx losartan 25 mg tablet 25 mg PO QDAY 03/26/17 09/03/17 History Albuterol Sulfate [Proventil Hfa] 2 puff IH Q4H PRN #1 hfa.aer.ad 06/01/1709/03 Rx empagliflozin 10 mg-linagliptin 5 1 tab PO DAILY #90 tab 06/07/17 09/03/17 Rx mg tablet potassium chloride ER 20 mEq 40 meq PO BID #360 tab 06/10/17 09/03/17 Rx tablet,extended release(part/cryst) digoxin 125 mcg tablet 125 mcg PO QDAY #90 tab 08/06/17 09/03/17 Rx warfarin 5 mg tablet 5 mg PO .COMPLEX #1 tab 08/20/17 09/03/17 Rx ranitidine 150 mg tablet 150 mg PO BID #60 tab 08/21/17 09/03/17 Rx torsemide 10 mg tablet 20 mg PO BID tab 08/21/17 09/03/17 History clindamycin HCl 300 mg capsule 300 mg PO BID #14 cap 09/02/17 09/03/17 Rx Allergies Allergy/AdvReac Type Severity Reaction Status Date / Time Penicillins Allergy Mild Hives Verified 08/21/17 14:08 Sulfa (Sulfonamide Allergy Mild Hives Verified 08/21/17 14:08 Antibiotics) ethacrynic acid AdvReac Mild Diarrhea Verified 08/21/17 14:08 spironolactone AdvReac Mild vomiting Verified 08/21/17 14:08 Exam Temp Pulse Resp BP Pulse Ox 98.9 F 70 16 119/87 96 09/04/17 08:00 09/04/17 08:00 09/04/17 08:00 09/04/17 08:00 09/04/17 08:00 - General physical appearance well developed, well nourished, no distress - Eyes PERRL, normal ocular movement. negative: icteric - ENT normal pinna, normal nares, normal mucosa, no hearing loss, no congestion - Head Head exam IM: Present: atraumatic, normal inspection, normocephalic - Neck no masses, no bruits, trachea midline, no lymphadectomy, no venous distension - Cardiovascular Cardiovascular exam IM: Present: irregular rhythm, +S1, +S2, tachycardia. Absent: JVD - Respiratory normal expansion, normal respiratory effort, clear to percussion, clear to auscultation - Abdomen Abdomen: Present: soft, non tender (Abdomen is nontender; good active bowel sounds; specifically no epigastric or right upper quadrant tenderness; well- healed midline scar; no evidence of hernia), bowel sounds Hernia: Present: none - Genitourinary Present: normal penis with no external lesions - Integumentary Present: no rash, no growths, no abnormal pigmentation - Neurologic Present: normal coordination, normal sensation - Musculoskeletal Present: normal gait, normal posture - Psychiatric Present: oriented to time, oriented to person, oriented to place, speech is normal, memory intact Results - Labs 09/04/17 03:40 09/04/17 03:40 Abnormal lab results 09/03/17 09/03/17 09/03/17 Range/Units 17:05 17:05 17:05 MCH 25.9 L (26.0-34.0) pg RDW 20.8 H (11.5-14.5) % Gran % 81.0 H (38.0-78.0) % Lymph % (Auto) 13.1 L (15.5-49.0) % Gran # 8.1 H (1.8-8.0) K/mcL Lymph # (Auto) 1.3 L (1.5-4.8) K/mcL PT (11.9-14.5) sec INR (0.9-1.1) VBG Lactic Acid 2.7 H (0.5-2.2) mmol/L Carbon Dioxide 21 L (22-30) mmol/L Anion Gap 18.0 H (8-16) Creatinine 1.7 H (0.7-1.2) mg/dl Glucose 236 H (70-105) mg/dL Calcium (8.6-10.4) mg/dl Total Bilirubin 2.5 H (0.0-1.0) mg/dL Direct Bilirubin (0.0-0.3) mg/dL GGT (8-61) U/L Lactate Dehydrogenase (94-250) U/L NT-Pro-B Natriuret Pep (0-125) pg/ml Total Protein (5.9-8.4) gm/dL 09/03/17 09/03/17 09/04/17 Range/Units 17:05 17:05 03:40 MCH 25.7 L (26.0-34.0) pg RDW 19.5 H (11.5-14.5) % Gran % (38.0-78.0) % Lymph % (Auto) (15.5-49.0) % Gran # (1.8-8.0) K/mcL Lymph # (Auto) (1.5-4.8) K/mcL PT 32.6 H (11.9-14.5) sec INR 3.0 H (0.9-1.1) VBG Lactic Acid (0.5-2.2) mmol/L Carbon Dioxide (22-30) mmol/L Anion Gap (8-16) Creatinine (0.7-1.2) mg/dl Glucose (70-105) mg/dL Calcium (8.6-10.4) mg/dl Total Bilirubin (0.0-1.0) mg/dL Direct Bilirubin (0.0-0.3) mg/dL GGT (8-61) U/L Lactate Dehydrogenase (94-250) U/L NT-Pro-B Natriuret Pep 9259.0 H (0-125) pg/ml Total Protein (5.9-8.4) gm/dL 09/04/17 09/04/17 Range/Units 03:40 03:40 MCH (26.0-34.0) pg RDW (11.5-14.5) % Gran % (38.0-78.0) % Lymph % (Auto) (15.5-49.0) % Gran # (1.8-8.0) K/mcL Lymph # (Auto) (1.5-4.8) K/mcL PT 31.6 H (11.9-14.5) sec INR 2.9 H (0.9-1.1) VBG Lactic Acid (0.5-2.2) mmol/L Carbon Dioxide (22-30) mmol/L Anion Gap (8-16) Creatinine 1.6 H (0.7-1.2) mg/dl Glucose 144 H (70-105) mg/dL Calcium 8.5 L (8.6-10.4) mg/dl Total Bilirubin 2.1 H (0.0-1.0) mg/dL Direct Bilirubin 0.6 H (0.0-0.3) mg/dL GGT 70 H (8-61) U/L Lactate Dehydrogenase 257 H (94-250) U/L NT-Pro-B Natriuret Pep (0-125) pg/ml Total Protein 5.7 L (5.9-8.4) gm/dL Diabetes panel 09/03/17 09/04/17 Range/Units 17:05 03:40 Sodium 140 143 (133-145) mmol/L Potassium 4.6 4.3 (3.3-5.1) mmol/L Chloride 101 105 (96-108) mmol/L Carbon Dioxide 21 L 22 (22-30) mmol/L BUN 22 23 (8-23) mg/dl Creatinine 1.7 H 1.6 H (0.7-1.2) mg/dl Glucose 236 H 144 H (70-105) mg/dL Calcium 9.2 8.5 L (8.6-10.4) mg/dl AST 26 34 (0-37) U/l ALT 20 24 (0-40) U/l Alkaline Phosphatase 117 95 (39-117) U/L Total Protein 6.8 5.7 L (5.9-8.4) gm/dL Albumin 3.9 3.2 (3.2-5.2) gm/dL Triglycerides 82 (<150) mg/dl Calcium panel 09/03/17 09/04/17 Range/Units 17:05 03:40 Calcium 9.2 8.5 L (8.6-10.4) mg/dl Phosphorus 2.9 (2.7-4.5) mg/dL Albumin 3.9 3.2 (3.2-5.2) gm/dL Pituitary panel 09/03/17 09/04/17 Range/Units 17:05 03:40 Sodium 140 143 (133-145) mmol/L Potassium 4.6 4.3 (3.3-5.1) mmol/L Chloride 101 105 (96-108) mmol/L Carbon Dioxide 21 L 22 (22-30) mmol/L BUN 22 23 (8-23) mg/dl Creatinine 1.7 H 1.6 H (0.7-1.2) mg/dl Glucose 236 H 144 H (70-105) mg/dL Calcium 9.2 8.5 L (8.6-10.4) mg/dl Adrenal panel 09/03/17 09/04/17 Range/Units 17:05 03:40 Sodium 140 143 (133-145) mmol/L Potassium 4.6 4.3 (3.3-5.1) mmol/L Chloride 101 105 (96-108) mmol/L Carbon Dioxide 21 L 22 (22-30) mmol/L BUN 22 23 (8-23) mg/dl Creatinine 1.7 H 1.6 H (0.7-1.2) mg/dl Glucose 236 H 144 H (70-105) mg/dL Calcium 9.2 8.5 L (8.6-10.4) mg/dl Total Bilirubin 2.5 H 2.1 H (0.0-1.0) mg/dL AST 26 34 (0-37) U/l ALT 20 24 (0-40) U/l Alkaline Phosphatase 117 95 (39-117) U/L Total Protein 6.8 5.7 L (5.9-8.4) gm/dL Albumin 3.9 3.2 (3.2-5.2) gm/dL All other labs normal. Assessment and Plan (1) Recurrent lower abdominal pain Patient's abdominal pain is primarily lower abdomen and left lower quadrant. It is probably more related to diverticulitis. Would suggest another course of ciprofloxacin and Flagyl for at least 2 weeks. He will need to have tagged white blood cell scan done but this can be done as an outpatient. Status: Acute (2) Diverticulitis large intestine Status: Acute (3) Cholelithiasis and cholecystitis without obstruction Patient has cholelithiasis but does not have acute inflammation of the gallbladder. He is an extremely poor candidate for operative therapy. If he should need cholecystectomy it will need to be done at a tertiary center because of his severe poorly compensated ischemic cardiomyopathy with ejection fraction of 15%. With his prior history of diverticulitis, sigmoid colon perforation with peritonitis and 2 major operations it may be impossible to do him laparoscopically and an open procedure may be fraught with potential problems related to his heart and decompensated cardiac function. He will need to have a HIDA scan to evaluate gallbladder function but this can be done as an outpatient since he does not have an acute problem Status: Acute (4) Ischemic dilated cardiomyopathy Status: Acute (5) CKD (chronic kidney disease), stage III Status: Chronic Comment: most recent s.creat is 1.3 which equals to egfr of 56 l/min per MDRD equation s.creat at baseline is 1.1-1.3 and he does have recent worsening of his renal function in the setting of worsening CHF symptoms His recent worsening is likely sec to cardio renal syndrome, he has h/o DM type 2 and HTN as additional risk factor for renal disease His UA in 04/2015 showed + prt and few RBC at this point, will recheck labs and renal US advised to avoid NSAIDS, volume depletion advised to follow low sodium diet will monitor (6) Diabetes mellitus type 2, controlled, with complications Status: Chronic Qualifiers: Diabetes mellitus skilled nursing insulin use: without terminal computer operator use Qualified Code(s): E11.8 - Type 2 diabetes mellitus with unspecified complications (7) Hypertension, essential, benign Status: Chronic (8) [facility] current use of anticoagulant therapy Status: Chronic (9) Paroxysmal atrial fibrillation Status: Chronic
[2017-09-04] MEDS ORDERED: DIGOXIN 125 MCG TABLET PO SCH (14:00)
--- NOTE | 2017-09-04 15:20 | Internal Med Progress Note ---
Medical - PN: Subj Patient information: Note initiated : 09/04/17 at 3:15 pm Service Date, if different from initiated Date: [] Patient: Jameson Stewart 72 y/o M admitted on 09/03/17 for Cholecystitis with Cholelithiasis, Diverticulitis. Chief Complaint: [] Interval history: Mr. Stewart is a 72 year old Male with multiple medical issues, presents to the hospital with abdominal pain. The patient notes that he has been having intermittent abdominal pain in the lower abdomen since novermber, the patient notes this is intermittent, in nature sharp, associated with some loose bowels, and has been progressively getting worse, he notes that he has been having dyspepsia symptoms, not able to eat or d rink much especially fatty food, which will exacerbate his symptoms. He also has increased shortness of beath and edema in this lower extremities he was seen by dr alcantar recently, he underwent a CT Abdomen and pelvis and this showed diverticulitis, clindamycin was called in for same? today the patient did not feel well, and was therefore directed to the ER. Recently he also had worsening edema, and his dose of diuretics was increased. echo ordered which shows lvef of 15-20%, grade 3 diastolic dysfunction. last echo on file is 2015 which shows lvef of 30%, and grade 3-4 diastolic dysfunction, pt does have pacemaker, aicd in place. Pt notes he is not too surprised by his echo results and reports his ejection fraction was around 20-25 %? I do not have this echo report. The patient otherwise has no chest pain, no shortness of breath, has nausea, no headache, no profuse diarrhea, no constipation, no fever or chills. The patient in the ER underwent X ray abdomen and labs, x ray was neg, but his labs showed inez of 2.0, later usg abdomen was done which showed significantly thickened gall bladder wall with pericholecystic fluid, suggestive of cholecystics. Dr Meyer was called who will be consulting on the patient but given his extensive medical history he is being admitted to medicine for further management. The patients was at bedside, plan of care reviewed with them, they are fully aware of the overall poor prognosis of the patient The pt has ET of 150feet, no cp, during exertion, he has ckd, DM, he has cva, CAD mi s/p stent placement, CHF with poor ejection fraction, HTN. Pt desires to be full code for now. Sep 04 patient seen examined, no acute overnight event, Seen by Dr meyer who does not feel that the patient is good operative candidate , given poor cardiac reserve patient also will need hida and tagged wbc scan which can be done as outpatient resume diet today, if able to tolerate well, likely d/c in AM with 2 weeks of cipro and flagyl with follow up with surgery. Pertinent ROS: Denies headache, dizziness Denies chest pain, palpitations Denies cough or shortness of breath Denies abdominal pain, nausea or vomiting. - Constitutional Vitals: Vital Signs Temp Pulse Resp BP Pulse Ox 97.1 F 72 16 125/96 94 09/04/17 12:00 09/04/17 13:12 09/04/17 13:12 09/04/17 12:00 09/04/17 12:00 Period Temp Pulse Resp BP Sys/Hassan Pulse Ox Last 24 Hr 95.8 F-98.9 F 68-73 10-20 108-147/85-114 91-99 Intake and Output 09/04/17 09/04/17 09/04/17 05:59 13:59 21:59 Intake Total 200 / 200 Output Total 0 / 0 500 / 500 Balance 0 / 0 -300 / -300 Intake & Output: Intake & Output 09/04/17 09/04/17 09/04/17 05:59 13:59 21:59 Intake Total 200 / 200 Output Total 0 / 0 500 / 500 Balance 0 / 0 -300 / -300 Intake: IV 200 / 200 Output: Void Amount 0 / 0 500 / 500 Exam: Constitutional; Afebrile, cooperative, alert, not in distress. Eyes- No icterus, , No periorbital swelling Ears- Ext ear normal, hearing normal to conversation. Neck- Midline trachea, supple Respiratory system: Air Entry equal on both sides, No crackles or wheezing, no rhonchi. CVS- Rate rhythm irregular, S1,S2 heard, no gallop, no rub. Abdomen- Soft nontender abdomen, no organomegaly, no tenderness, no guarding or rigidity, [employer]- AOOx3, moving all extremities, no gross focal deficit noted. Medical - PN: Obj Da - Labs CBC & Chem 7: 09/04/17 03:40 01/24/18 03:40 Labs: Abnormal Lab Results 09/04/17 09/04/17 09/04/17 03:40 03:40 03:40 MCH 25.7 L RDW 19.5 H Gran % Lymph % (Auto) Gran # Lymph # (Auto) PT 31.6 H INR 2.9 H VBG Lactic Acid Carbon Dioxide Anion Gap Creatinine 1.6 H Glucose 144 H Calcium 8.5 L Total Bilirubin 2.1 H Direct Bilirubin 0.6 H GGT 70 H Lactate Dehydrogenase 257 H NT-Pro-B Natriuret Pep Total Protein 5.7 L 09/03/17 09/03/17 09/03/17 17:05 17:05 17:05 MCH RDW Gran % Lymph % (Auto) Gran # Lymph # (Auto) PT 32.6 H INR 3.0 H VBG Lactic Acid 2.7 H Carbon Dioxide Anion Gap Creatinine Glucose Calcium Total Bilirubin Direct Bilirubin GGT Lactate Dehydrogenase NT-Pro-B Natriuret Pep 9259.0 H Total Protein 09/03/17 09/03/17 17:05 17:05 MCH 25.9 L RDW 20.8 H Gran % 81.0 H Lymph % (Auto) 13.1 L Gran # 8.1 H Lymph # (Auto) 1.3 L PT INR VBG Lactic Acid Carbon Dioxide 21 L Anion Gap 18.0 H Creatinine 1.7 H Glucose 236 H Calcium Total Bilirubin 2.5 H Direct Bilirubin GGT Lactate Dehydrogenase NT-Pro-B Natriuret Pep Total Protein Meds: Medications Acetaminophen (Tylenol) 650 mg PO Q6HP PRN PRN Reason: PAIN/FEVER > 101 Albuterol/Ipratropium (Duoneb) 3 ml NEB Q6HRT [facility] Last Admin: 09/04/17 13:12 Dose: 3 ml Amiodarone HCl (Cordarone) 200 mg PO [facility] Last Admin: 09/04/17 08:11 Dose: 200 mg Aspirin (Aspirin) 81 mg PO DAILY [facility] Last Admin: 09/04/17 08:45 Dose: Not Given Atorvastatin Calcium (Lipitor) 40 mg PO [facility] Last Admin: 09/03/17 22:19 Dose: 40 mg Aztreonam (Azactam) 2 gm IV Q8H [facility] Last Admin: 09/04/17 14:52 Dose: 2 gm [facility]g) [facility] Admin: 09/04/17 08:11 Dose: 25 mg Cyanocobalamin (Vitamin B-12) 1,000 mcg PO DAILY [facility] Last Admin: 09/04/17 08:12 Dose: Not Given Dextrose (Dextrose 50%) 0 ml IV UD PRN PRN Reason: Hypoglycemia Diagnostic Test (Pha) (Accu-Chek) 1 each FS [facility] Last Admin: 09/04/17 12:37 Dose: 1 each Digoxin (Lanoxin) 125 mcg PO DAILY@1400 [facility] Last Admin: 09/04/17 14:52 Dose: 125 mcg Gabapentin (Neurontin) 600 mg PO HS [facility] Last Admin: 09/03/17 22:20 Dose: 600 mg Glucose (Insta-Glucose) 15 gm PO PRN PRN PRN Reason: Hypoglycemia Metronidazole (Flagyl) 500 mg in 100 mls @ 100 mls/hr IV Q8H [facility] Last Admin: 09/04/17 14:52 Dose: 100 mls/hr Insulin Glargine (Lantus) 10 unit SQ [facility] Last Admin: 09/03/17 22:19 Dose: 10 unit Insulin Human Lispro (Humalog) 0 unit SQ [facility] PRN Reason: Protocol Last Admin: 09/04/17 12:37 Dose: Not Given Nitroglycerin (Nitrostat) 0.4 mg SL Q5-15MIN PRN PRN Reason: Chest Pain Ondansetron HCl (Zofran) 4 mg IV Q4HP PRN PRN Reason: Nausea And Vomiting Vitamin D (Vitamin D3) 2,000 unit PO DAILY [facility] Last Admin: 09/04/17 08:12 Dose: Not Given Medical - PN: A/P - Time Spent With Patient Total time spent is greater than 50% in coordination of care (as documented) at patient's floor/unit and/or counseling patient: - Narrative A/P Narrative: A/P cholelithaisis : not infected / no acute inflammation as per surgery, antibiotics outpatient follow up. Diverticulitis: Noted on recent CT, On IV aztreonam and Iv flagyl for now, change to oral ciprol and flagyl and follow up with chauncey pham in 1 -2 week as outpatient. Pre op eval: Patient will be high risk from cardiovascular stand point. pt is does not have any active modifiable risk factors, he will continue on beta blockers and asa, statin throughout the procedure, as he has h/o cad, s/p stent , cva. Will discuss with surgeon if any other alternatives are feasible, afib : rate controlled on amiodarone, c oreg, on coumadin with therapeutic INR, given no surgery planned, resume coumadin per pharmacy. CHF: severe systolic and diastoilc heart failure, h/o cardiac arrest in past, s/ p pacemaker/ aicd placement, clinically not in volume overload, patient has edema feet, but exam is clear, no JVP. continue chf meds for now, careful hydration. resume diuretic at discharge sepsis: lactate normal today, on IV antibiotics. COPD: no wheeze on exam, duonebs q6h jeffery for now. CAD/ CVA/ ND: On asa, statin, continue for now, no active chest pain. ekg shows paced rhythm. Lung cavity:repeat CT d one, await reading, DM: Hold oral meds, Sq lantus and ssi insulin for now, monitor glucose CKD: creat is stable at 1.6, monitor HTN: BP stable, continue coret, resume merced/ arb DVT on coumadin with therapeutic INR full code Pt has overall very poor prognosis, patietn and his aware of same.
[2017-09-04] MEDS: GABAPENTIN 300 MG CAPSULE PO SCH (21:25)
[2017-09-04] MEDS: ATORVASTATIN 20 MG TABLET PO SCH (21:25)
[2017-09-04] MEDS: INSULIN GLARGINE, HUMAN 1 UNIT/0.01 ML SQ SCH (21:26)
[2017-09-05] MEDS: IPRATROPIUM/ALBUTEROL 3 ML AMPUL.NEB NEB SCH ×2 (02:01→07:42)
[2017-09-05] MEDS: AZTREONAM 2 GM VIAL IV SCH (05:37)
[2017-09-05 05:42] LABS: Basophils # (Auto) 0 K/mcL (0.0-0.3); Basophils % (Auto) 0 % (0.0-2.0); Eosinophils # (Auto) 0.1 K/mcL (0.0-0.7); Eosinophils % (Auto) 1.2 % (0.0-7.0); Granulocytes % (Auto) 79.8 % (38.0-78.0); Lymphocytes # (Auto) 1.2 K/mcL (1.5-4.8); Mean Cell Volume 83.3 fL (80.0-100.0); Mean Corpuscular HGB Conc 31.3 g/dL (31.0-36.0); Mean Corpuscular Hemoglobin 26.1 pg (26.0-34.0); Monocytes # (Auto) 0.5 K/mcL (0.1-0.9); Platelet Count 180 K/mcL (140-440); RBC 5.25 M/mcL (4.50-5.90); Red Cell Distribution Width 20.5 % (11.5-14.5)
[2017-09-05 06:03] LABS: ALT/SGPT 22 U/l (0-40); Albumin 2.9 gm/dL (3.2-5.2); Albumin/Globulin Ratio 1.3 (1.0-2.3); Alkaline Phosphatase 90 U/L (39-117); Bilirubin,Direct 0.5 mg/dL (0.0-0.3); Blood Urea Nitrogen 25 mg/dl (8-23); Gamma Glutamyl Transpeptidase 61 U/L (8-61); Uric Acid 7.2 mg/dL (2.5-8.0)
[2017-09-05] MEDS: metroNIDAZOLE 500 MG/100 ML BAG IV SCH (07:22)
[2017-09-05] MEDS: INSULIN LISPRO 1 UNIT/0.01 ML UNIT SQ SCH ×2 (07:31→12:02)
[2017-09-05] MEDS: CARVEDILOL 12.5 MG TABLET PO SCH (08:52)
[2017-09-05] MEDS: ASPIRIN 81 MG TAB.CHEW PO SCH (08:52)
[2017-09-05] MEDS: CYANOCOBALAMIN (VITAMIN B-12) 500 MCG TABLET PO SCH (08:52)
[2017-09-05] MEDS: AMIODARONE HCL 200 MG TABLET PO SCH (08:52)
[2017-09-05] MEDS ORDERED: LOSARTAN 25 MG TABLET PO SCH (09:00)
[2017-09-05] MEDS: VITAMIN D3 1,000 UNIT TABLET PO SCH (09:03)
--- NOTE | 2017-09-05 09:06 | Cat Scan Report ---
CLINICAL INFORMATION: History of smoking. Follow up left lower lobe abscess COMPARISON: Chest CT from 12/25/2007 and 05/30/2017 TECHNIQUE: 0.625 mm axial slices were obtained from the lung apices through the bases without intravenous contrast. 2.5 mm Sagittal, coronal and axial reformatted images were processed and reviewed at bone, lung and soft tissue windows. 7 mm axial MIP images were also reconstructed to optimize pulmonary nodule detection.The exam was performed using radiation dose optimization techniques including, but not limited to, automated exposure control, adjustment of the mA and/or kV according to patient size and use of iterative reconstruction technique. FINDINGS: Since the chest CT over three months prior, the right upper and middle lobe infiltrates have completely cleared. Right lower lobe infiltrate has nearly resolved with minimal residual groundglass disease posteriorly. The nodule in the supradiaphragmatic anterior basilar left lower lobe has decreased from 3.7 to 2.2 cm and no longer demonstrate cavitation. This presumably represents resolving infection. There are no new or enlarging nodules. Mild underlying chronic bronchitis and scattered fibrotic changes in the periphery of both lungs similar previous study. No new pulmonary abnormalities. A small right pleural effusions show slight interval increase pleural effusion. Tiny left pleural effusion is unchanged. Mediastinal windows show the heart to be moderately enlarged with dual-chamber pacemaker leads in stable satisfactory position stable satisfactory position. Small, simple pericardial effusion is unchanged. The noncontrasted thoracic aorta and pulmonary artery are normal in contour and caliber. Multiple moderately enlarged mediastinal lymph nodes, ranging up to 18 mm in the precarinal region, show mild increase in size and number since the study three months prior. Esophagus grossly normal. Thyroid is normal. The bones and soft tissues of the chest wall are normal. IMPRESSION: 1. Marked interval decrease in pleural-based nodule anterior basilar segment left lower lobe from 3.7 cm to 2.2 cm since the chest CT three months ago. The nodule no longer demonstrated cavitation. Presumably, this is infection or inflammation - now resolving. There is no evidence of pulmonary malignancy. 2. Complete interval resolution in right upper and middle lobe infiltrates with near complete resolution right lower lobe infiltrate with minimal groundglass residual posteriorly. 3. Small right pleural effusions show slight increase. Tiny left pleural effusion is unchanged. 4. Mediastinal adenopathy. There is been a modest increase in size and number of multiple mediastinal lymph nodes since the study three months prior. Mediastinal adenopathy was also present on the remote study 2009 . Both likely the are benign reactive lymph nodes which wax and wane in size and number 5. Mild underlying chronic bronchitis. There are no bullae to suggest patricio emphysema. Minor scattered scarring in periphery of both lungs - stable Interpreted and Authenticated by: Stanley Diop 09/05/17
[2017-09-05] MEDS ORDERED: IPRATROPIUM/ALBUTEROL 3 ML AMPUL.NEB NEB PRN (10:34)
--- NOTE | 2017-09-05 12:58 | Discharge Summary ---
Medical - DS: Prov Patient information: Note initiated : 09/05/17 at 12:51 pm Service Date, if different from initiated Date: [] Patient: Jameson Stewart 72 y/o M admitted on 09/03/17 for Cholecystitis with Cholelithiasis, Diverticulitis. Chief Complaint: [] Date of admission: 09/03/17 21:10 Discharge date: 09/05/17 Primary care physician: Fletcher Perera Consults: 09/03/17 19:17 Consult to Physician [CONS] Stat Comment: Consulting Provider: John Meyer Reason For Exam: Physician to Consult 09/03/17 19:18 Consult to Physician [CONS] Stat Comment: Consulting Provider: Rina Blount Reason For Exam: Physician to Consult Medical - DS: Meds - Discharge Medications Prescriptions: Ciprofloxacin HCl [Cipro] 500 mg PO BID #30 tab metroNIDAZOLE [Flagyl] 500 mg PO TID #45 tab Active and Home Medications: Home Medications aspirin 81 mg tablet,delayed release 81 mg PO QDAY tab 02/09/15 [History Confirmed 09/03/17 Last Taken 05/26/17 09:00 81 mg] cholecalciferol (vitamin D3) 2,000 unit capsule 2,000 unit PO QDAY cap [History Confirmed 09/03/17 Last Taken 05/26/17 09:00 2,000 unit] coenzyme Q10 200 mg capsule 200 mg PO QDAY cap 02/09/15 [History Confirmed Last Taken 05/26/17 09:00 200 mg] cyanocobalamin (vit B-12) 1,000 mcg tablet 1,000 mcg PO QDAY tab 02/09/15 [ History Confirmed 09/03/17 Last Taken 05/26/17 09:00 1,000 mcg] multivitamin tablet 1 tab PO QDAY tab 02/09/15 [History Confirmed 09/03/17 Last Taken 05/26/17 09:00 1 tab] Dillon 3 Fish Oil 1000MG 1 tab PO DAILY 07/19/15 [History Confirmed 09/03/17 Last Taken 05/26/17 09:00 1 tab] Super B Complex 1 tab PO DAILY 07/19/15 [History Confirmed 09/03/17 Last Taken 05/26/17 09:00 1 tab] nitroglycerin 0.4 mg sublingual tablet 0.4 mg SUBLINGUAL Q5-15MIN PRN 07/19/15 [ History Confirmed 09/03/17 Last Taken Unknown] amiodarone 200 mg tablet 200 mg PO QDAY 30 Days #30 tab 07/11/16 [History Confirmed 09/03/17 Last Taken 05/26/17 09:00 200 mg] carvedilol 25 mg tablet 25 mg PO BID #180 tab 01/08/17 [Rx Confirmed 09/03/17 Last Taken 05/26/17 09:00 25 mg] gabapentin 600 mg tablet 600 mg PO qhs #30 tab 01/28/17 [Rx Confirmed 09/03/17 Last Taken 05/25/17 21:00 600 mg] atorvastatin 40 mg tablet 40 mg PO QHS #90 tab 02/25/17 [Rx Confirmed 09/03/17 Last Taken 05/25/17 21:00 40 mg] losartan 25 mg tablet 25 mg PO QDAY 03/26/17 [History Confirmed 09/03/17 Last Taken 05/25/17 21:00 25 mg] Albuterol Sulfate [Proventil Hfa] 2 puff IH Q4H PRN #1 hfa.aer.[email or web address] 06/01/17 [Rx Confirmed 09/03/17 Last Taken Unknown] empagliflozin 10 mg-linagliptin 5 mg tablet 1 tab PO DAILY #90 tab 06/07/17 [Rx Confirmed 09/03/17 Last Taken Unknown] potassium chloride ER 20 mEq tablet,extended release(part/cryst) 40 meq PO BID # 360 tab 06/10/17 [Rx Confirmed 09/03/17 Last Taken Unknown] digoxin 125 mcg tablet 125 mcg PO QDAY #90 tab 08/06/17 [Rx Confirmed 09/03/17 Last Taken Unknown] warfarin 5 mg tablet 5 mg PO .COMPLEX #1 tab 08/20/17 [Rx Confirmed 09/03/17 Last Taken Unknown] ranitidine 150 mg tablet 150 mg PO BID #60 tab 08/21/17 [Rx Confirmed 09/03/17 Last Taken Unknown] torsemide 10 mg tablet 20 mg PO BID tab 08/21/17 [History Confirmed 09/03/17 Last Taken Unknown] Ciprofloxacin HCl [Cipro] 500 mg PO BID #30 tab 09/05/17 [Rx Last Taken Unknown] metroNIDAZOLE [Flagyl] 500 mg PO TID #45 tab 09/05/17 [Rx Last Taken Unknown] Medical - DS: Hosp Hospital course: DISCHARGE DIAGNOSIS * acute Diverticulitis: Noted on recent CT, managed on IV aztreonam and Iv flagyl and switched to by mouth ciprofloxacin/Flagyl for additional 15 days. Follow-up with surgery 1 -2 week as outpatient. * sepsis: clinically resolved on antibiotics. * Cholelithaisis : outpatient follow up with surgery. * Anticoagulation for CVA prophylaxis on coumadin. INR 3 * history of severe systolic and diastoilc heart failure- h/o cardiac arrest in past, s/p pacemaker/ aicd placement, currently well compensated and continuing home medications including diuretics. * COPD:managed on bronchodilators * Afib : rate controlled on amiodarone, coreg, * History of CAD/ CVA/ CA: On asa, statin, * Lung cavity:repeat CT shows interval improvement since prior imaging * DM type restart previous home meds * History of CAD stable * History of hypertension restart home meds BRIEF HOSPITAL COURSE Mr. Stewart is a 72 year old Male with multiple medical issues, presents to the hospital with abdominal pain. The patient notes that he has been having intermittent abdominal pain in the lower abdomen since , the patient notes this is intermittent, in nature sharp, associated with some loose bowels, and has been progressively getting worse, he notes that he has been having dyspepsia symptoms, not able to eat or d rink much especially fatty food, which will exacerbate his symptoms. He also has increased shortness of beath and edema in this lower extremities he was seen by dr alcantar recently, he underwent a CT Abdomen and pelvis and this showed diverticulitis, clindamycin was called in for same? today the patient did not feel well, and was therefore directed to the ER. Recently he also had worsening edema, and his dose of diuretics was increased. echo ordered which shows lvef of 15-20%, grade 3 diastolic dysfunction. last echo on file is 2015 which shows lvef of 30%, and grade 3-4 diastolic dysfunction, pt does have pacemaker, aicd in place. Pt notes he is not too surprised by his echo results and reports his ejection fraction was around 20-25 %? I do not have this echo report. The patient otherwise has no chest pain, no shortness of breath, has nausea, no headache, no profuse diarrhea, no constipation, no fever or chills. The patient in the ER underwent X ray abdomen and labs, x ray was neg, but his labs showed inez of 2.0, later usg abdomen was done which showed significantly thickened gall bladder wall with pericholecystic fluid, suggestive of cholecystics. Dr Meyer was called who will be consulting on the patient but given his extensive medical history he is being admitted to medicine for further management. The patients was at bedside, plan of care reviewed with them, they are fully aware of the overall poor prognosis of the patient The pt has ET of 150feet, no cp, during exertion, he has ckd, DM, he has cva, CAD mi s/p stent placement, CHF with poor ejection fraction, HTN. Pt desires to be full code for now. Sep 04 patient seen examined, no acute overnight event, Seen by Dr meyer who does not feel that the patient is good operative candidate , given poor cardiac reserve patient also will need hida and tagged wbc scan which can be done as outpatient resume diet today, if able to tolerate well, likely d/c in AM with 2 weeks of cipro and flagyl with follow up with surgery. 09/05-patient doing well. No overnight events. white count at 8.9. No fever chills or telemetry events. INR 3. bilirubin down from 2.5-1.5. the patient is euvolemic. denies abdominal pain nausea or diarrhea. Feels at baseline. Requesting discharge. Detailed instructions as were discussed with patient's and noted as below Discharge diagnosis: . - Time Spent with Patient Total time spent providing and/or coordinating discharge services: Greater than 30 minutes Medical - DS: Exam - Constitutional Vitals: Vital Signs Temp Pulse Pulse Resp BP BP Pulse Ox 09/05/17 07:36 92 09/05/17 07:32 98.6 F 70 18 120/81 92 09/05/17 04:00 97.6 F 71 20 109/78 92 09/05/17 00:00 72 18 118/80 92 09/04/17 20:00 98.0 F 75 18 97 09/04/17 19:20 73 16 09/04/17 16:00 97.2 F 70 18 112/78 95 09/04/17 13:12 72 16 Intake and Output 09/04/17 09/05/17 09/05/17 21:59 05:59 13:59 Intake Total 940 / 940 100 / 100 340 / 340 Output Total 1000 / 1000 350 / 350 525 / 525 Balance -60 / -60 -250 / -250 -185 / -185 Intake: IV 100 / 100 100 / 100 100 / 100 Oral 840 / 840 240 / 240 Output: Void Amount 1000 / 1000 350 / 350 525 / 525 Other: Meal Dinner Breakfast Percent of Meal Consumed 100% 100% Feeding Ability Assist with Tray Set Up # Voids 1 Weight 227 lb Medical - DS: Data Labs on day of discharge: Labs from last 24 hours 09/05/17 09/05/17 09/05/17 03:35 03:35 03:35 WBC 8.9 RBC 5.25 Hgb 13.7 Hct 43.8 MCV 83.3 MCH 26.1 MCHC 31.3 RDW 20.5 H Plt Count 180 MPV 8.6 Gran % 79.8 H Lymph % (Auto) 13.0 L [place] % (Auto) 6.0 Eos % (Auto) 1.2 Baso % (Auto) 0 Gran # 7.1 Lymph # (Auto) 1.2 L [place] # (Auto) 0.5 Eos # (Auto) 0.1 Baso # (Auto) 0 PT 32.1 H INR 3.0 H Sodium 140 Potassium 4.0 Chloride 104 Carbon Dioxide 23 Anion Gap 13.0 BUN 25 H Creatinine 1.6 H GFR Calculation 43 Glucose 97 Uric Acid 7.2 Calcium 8.1 L Phosphorus 3.1 Magnesium 1.9 Total Bilirubin 1.5 H Direct Bilirubin 0.5 H GGT 61 AST 28 ALT 22 Alkaline Phosphatase 90 Lactate Dehydrogenase 255 H Total Protein 5.2 L Albumin 2.9 L Globulin 2.3 Albumin/Globulin Ratio 1.3 Triglycerides 62 Preliminary micro results at discharge 09/03/17 19:45 Blood Culture - Preliminary Blood 09/03/17 19:59 Blood Culture - Preliminary Blood Medical - DS: A/P - Patient/Caregiver Discharge Instructions Activity: increase activity as tolerated, resume usual activities as tolerated Diet: Consistent Carbohydrate Additional Instructions: Follow-up PCP in 5 days F/u surgery in 1-2 weeks Coumadin as per orthopedics for post hip DVT prophylaxis I recommend primary care physician to check INR, CBC BMP UA as a posthospital follow-up Antibiotics for additional 15 days. Further antibiotics duration to be decided by surgery Continue aggressive bowel regimen to prevent constipation Continue fall precautions daily weights measurements and take additional 40 mg Lasix for 3 days if weight gain over 4 pounds over baseline or worsening shortness of breath and call primary care physician if inadequate response to Lasix All meals on chair sitting upright at 90 degrees to prevent aspiration Return to ER if worsening abdominal pain, fever chills shortness of breath, diarrhea, bleeding Review risk and side effect profile of medications including antibiotics. Side effect may include mild to severe reaction including rash, diarrhea, cdiff and even which can be prevented by close follow-up with PCP and monitoring for side effects Refrain from alcohol-high risk disulfiram-like reaction Continue diabetic diet and activity as advised Discussed importance of medication adherence Please review medication list with patient prior to discharge Please schedule follow-up with PCP/Providers prior to discharge and provide printouts Portions of this chart may have been created with [employer] voice recognition software. Occasional wrong-word or ?sound-like? substitutions may have occurred due to the inherent limitations of voice recognition software. Please read the chart carefully and recognize, using context, where the substitutions have occurred. CC- PCP Prescriptions: Ciprofloxacin HCl [Cipro] 500 mg PO BID #30 tab metroNIDAZOLE [Flagyl] 500 mg PO TID #45 tab - Follow up Plan Follow up with: Fletcher Perera MD [Primary Care Provider] - 09/12/17 8:00 am (Check in at 7:45 am. Your nurse appointment to have your INR checked on Wednesday 09/06 has been canceled.) Disposition: Home, Self-Care Prognosis: Fair Rehab Potential: Fair I certify that the patient requires SNF services: No Overall status at discharge: patient is back to baseline
== END 2017-09-05 13:30 | disposition home or self-care (01) | DRG 871 ==
LOC: ED 16:24 → ICU 21:10
PROVIDERS: ADMIT Internal Medicine; ATTEND Internal Medicine

== ENCOUNTER 2022-04-22 22:32 | Inpatient (IN) ==
[2022-04-23] MEDS ORDERED: AZITHROMYCIN 500 MG in DEXTROSE 5% IN WATER 250 ML IV ONE (00:16)
[2022-04-23] MEDS ORDERED: LEVOFLOXACIN 750 MG/150 ML BAG IV ONE (00:23)
--- NOTE | 2022-04-23 00:56 | Emergency Department Note ---
HPI General Chief complaint: Weakness Stated complaint: weakness Time Seen by Provider: 04/22/22 23:28 Source: patient Mode of arrival: ambulatory Limitations: physical limitation History of Present Illness HPI Narrative: Narrative: 76-year-old male presents to the emergency department accompanied by his because of generalized weakness with cough. Patient was seen earlier in the day here in our emergency department for left shoulder pain. X-ray of the left shoulder was negative and the patient was discharged home. Today the patient has had a low-grade fever at home and a productive cough. Symptoms are constant. He believes they are associated with a rib fracture he sustained 2 weeks ago. Patient has been too weak to walk around the home safely states his . Symptoms are constant. Associated with his fever. Nothing makes it better. Patient has multiple medical problems including ischemic dilated cardiomyopathy, CHF, coronary artery disease, diabetes type 2, chronic kidney disease stage III, hypertension, long-term anticoagulant therapy, tremors, other Related Data Home Medications Medication Instructions Recorded Confirmed aspirin 81 mg tablet,delayed 81 mg PO QDAY 02/09/15 04/05/21 release cholecalciferol (vitamin D3) 50 2,000 unit PO QDAY 02/09/15 04/05/21 mcg (2,000 unit) capsule coenzyme Q10 200 mg capsule 200 mg PO QDAY 02/09/15 04/05/21 cyanocobalamin (vitamin B-12) 1,000 mcg PO QDAY 02/09/15 04/05/21 1,000 mcg tablet nitroglycerin 0.4 mg sublingual 0.4 mg sublingual Q5-15MIN PRN 07/19/15 04/05/21 tablet Chest Pain milrinone [Primacor] continuous IV infusion 12/18/17 04/05/21 primidone 50 mg tablet 50 mg PO QHS 03/31/18 04/05/21 Previous Rx's Medication Instructions Recorded multivitamin with iron-mineral 1 tab PO QDAY #100 tabs 12/18/17 carvedilol 12.5 mg tablet 12.5 mg PO BID #180 tabs 01/01/18 eplerenone 25 mg tablet (Inspra) 25 mg PO QDAY #90 tabs 01/01/18 losartan 25 mg tablet 25 mg PO QDAY #90 tabs 01/01/18 gabapentin 600 mg tablet 600 mg PO qhs #90 tabs 01/07/18 warfarin 3 mg tablet 6 mg PO .COMPLEX #60 tabs 01/07/18 torsemide 20 mg tablet 20 mg PO QAM #90 tabs 02/17/18 atorvastatin 40 mg tablet 40 mg PO QHS #90 tabs 03/24/18 potassium chloride 20 mEq 20 meq PO BID #180 tabs 06/30/18 tablet,extended release(part/cryst) (Klor-Con M) warfarin 5 mg tablet 5 mg PO .COMPLEX #90 tabs 08/11/18 wlesjxsg-lsghgzvmo-zyrgjodu 3.5 1 drp ophthalmic (eye) Q8H #5 mL 03/24/21 mg/mL-10,000 unit/mL-0.1% eye drops (Maxitrol) Allergies Allergy/AdvReac Type Severity Reaction Status Date / Time Penicillins Allergy Mild Hives Verified 04/22/22 22:37 Sulfa (Sulfonamide Allergy Mild Hives Verified 04/22/22 22:37 Antibiotics) ethacrynic acid AdvReac Mild Diarrhea Verified 04/22/22 22:37 spironolactone AdvReac Mild vomiting Verified 04/22/22 22:37 Review of Systems ROS ROS Narrative: Narrative: Constitutional: Reports fever Eyes: Denies eye discharge ENT ED: Reports hearing loss Cardiovascular: Reports dyspnea on exertion Respiratory: Reports cough Gastrointestinal: Denies nausea or vomiting Musculoskeletal: Reports joint pain (Left shoulder) Integumentary: Denies rash Neurological: Reports weakness Psychiatric: Denies anxiety Hematological/Lymphatic: Reports easy bleeding (On anticoagulant.) PFSH Narrative Patient History Narrative: Narrative: Medical/Surgical/Family History All Active Problems (Updated 04/23/22 @ 08:55 by Dhiraj Banks MD) Pneumonia due to 2019 novel coronavirus (Acute) Abdominal pain (Acute) Hematoma (Acute) Acute pain of left shoulder (Acute) Acute CHF (congestive heart failure) (Acute) Fever (Acute) Cellulitis of right lower extremity (Acute) Acute pansinusitis (Acute) Headache (Acute) Bleeding from PICC line (Acute) Dry eye of left side (Acute) Congestive heart failure (Chronic) skilled nursing current use of anticoagulant therapy (Chronic) CAD (coronary artery disease) (Chronic) Ischemic dilated cardiomyopathy (Chronic) Cardiomyopathy, secondary (Chronic) Diabetes mellitus, type II (Chronic) CKD (chronic kidney disease), stage III (Chronic) Diabetes mellitus type 2, controlled, with complications (Chronic) Epistaxis (Acute) Presence of combination internal cardiac defibrillator (ICD) and pacemaker (Chronic) Hypertensive renal disease (Chronic) Hypertension, essential, benign (Chronic) Hyperlipidemia (Chronic) Benign essential tremor (Chronic) Lower extremity edema (Chronic) Raynaud's syndrome (Chronic) Degenerative disc disease (Chronic) History of colonic polyps (Chronic) BPH without urinary obstruction (Chronic) Medical History (Updated 04/23/22 @ 08:55 by Dhiraj Banks MD) Acute kidney failure Ankle fracture L Benign essential tremor BPH without urinary obstruction CAD (coronary artery disease) [place] [id number] Cardiomyopathy, secondary Cholecystitis with cholelithiasis Cholecystitis, acute with cholelithiasis Cholelithiasis and cholecystitis without obstruction CKD (chronic kidney disease), stage III most recent s.creat is 1.3 which equals to egfr of 56 l/min per MDRD equation s.creat at baseline is 1.1-1.3 and he does have recent worsening of his renal function in the setting of worsening CHF symptoms His recent worsening is likely sec to cardio renal syndrome, he has h/o DM type 2 and HTN as additional risk factor for renal disease His UA in 04/2015 showed + prt and few RBC at this point, will recheck labs and renal US advised to avoid NSAIDS, volume depletion advised to follow low sodium diet will monitor Congestive heart failure COPD exacerbation Moderate obstructive lung disease 2014 Degenerative disc disease L spine Diabetes mellitus type 2, controlled, with complications Diabetes mellitus, type II Diverticulitis Diverticulitis large intestine awaiting endoscopy already organized for later this week, no changes needed at present for that Diverticulitis large intestine Gastritis Hemoptysis History of colonic polyps History of echocardiogram (07/20/15) Hyperlipidemia Hypertension, essential, benign Hypertensive renal disease BP at goal ct current meds follow low sodium diet Ischemic dilated cardiomyopathy skilled nursing current use of anticoagulant therapy Lower extremity edema much improved ct torsemide imp to follow less than 2gm/day sodum diet monitor weight and edema call if worsening symptoms Nasal fracture Paroxysmal atrial fibrillation Pitting edema Pneumonia with lower lobe abscess L lung Presence of combination internal cardiac defibrillator (ICD) and pacemaker Radial fracture Raynaud's syndrome Ribs, multiple fractures Sepsis UTI (urinary tract infection) Surgical History History of colonoscopy (08/29/15) History of coronary artery stent placement LAD with re-stent History of diverticular abscess DIVERTICULAR/COLOSTOMY AND REANASTOMOSIS History of esophagogastroduodenoscopy (07/22/15) History of hip surgery (09/27/14) Dr Vogel- Right hip arthroplasty using Gaye components History of lumbosacral spine surgery 2013,1995 Juan 2013, Yuri 96-lumbar fusion History of pacemaker History of right hip replacement 2013 History of shoulder surgery R RTC Status post lumbar discectomy Family History Father , 89 Abdominal aortic aneurysm Atherosclerosis of coronary artery Essential hypertension Osteoarthritis Mother , mother alive at 88 Atherosclerosis of coronary artery Diabetes mellitus NOS Essential hypertension Other Pneumonia involving right lung Social History Smoking Status: Former smoker Alcohol Intake Frequency: holiday/special occasion only Exam Narrative Narrative: Narrative: General Limitations: physical limitation General appearance: Present alert and in distress Head Head: Present atraumatic, normocephalic and other (Skin lesion being treated by [facility] wound care) Eye Eye: Present normal appearance; Absent scleral icterus ENT ENT: Present mucous membranes dry and other (Nose with spontaneous bleeding right side that stopped spontaneously); Absent normal oropharynx (Some mucus buildup on the hard palate and soft palate.) Neck Neck: Present normal inspection and trachea midline Chest Chest: Present symmetric chest wall rise Respiratory Respiratory: Present rales/crackles (Few); Absent wheezes or stridor Cardiovascular Cardiovascular: Present regular rate and normal rhythm Adbominal Abdominal: Present soft; Absent tenderness Extremities Extremities: Present pedal edema, pretibial edema and other (Chronic skin flaking and redness) Back Back: Absent tenderness Neurological Neurological: Present alert and oriented X3 Psychiatric Psychiatric: Present normal affect and normal mood Skin Skin: Present warm (WNL) and dry Course Reevaluation(s) Reevaluation #1: Requesting cough medicine and concerned about crusting around his left eye. Left eye appears only slightly injected in the conjunctiva. Will treat with antibiotic eyedrops. Will use Tessalon Perles for the cough. Pulse ox 91 to 93% room air. Time: 05:23 Reevaluation #2: BNP markedly elevated over 6000. Chest x-ray could be CHF. Possible interstitial lung disease chronic. Possible pneumonia with fever. Patient will be given Lasix 20 mg IV and I will consult with hospitalist regarding possible admission Time: : Vital Signs Vital signs: Vital Signs Temperature 101.7 F H 04/22/22 22:33 Pulse Rate 86 04/22/22 22:33 Respiratory Rate 18 04/22/22 22:33 Blood Pressure 94/72 04/22/22 22:33 Pulse Oximetry (%) 95 04/22/22 22:33 Oxygen Delivery Method 04/22/22 22:33 Temperature 101.0 F H 04/23/22 08:36 Pulse Rate 85 04/23/22 08:34 Respiratory Rate 21 04/23/22 08:34 Blood Pressure 106/81 04/23/22 08:31 Pulse Oximetry (%) 93 04/23/22 08:34 Oxygen Delivery Method 04/22/22 22:33 MDM MDM Narrative Medical decision making narrative: Narrative: Elderly male presents to the emergency department primarily because of weakness. He has cough. Low-grade fever at home. Differential diagnosis includes pneumonia, anemia, congestive heart failure, other viral illness, COVID, influenza, urosepsis, sepsis, UTI, other In view of the possibility of sepsis and a suspicious chest x-ray the patient was started on Levaquin 750 IV and azithromycin 500 IV. Patient had penicillin allergy with airway compromise so that penicillins and cephalosporins were contraindicated. EKG showed a paced rhythm with no further analysis. white count was normal at 8 with a hemoglobin low at 12.3 but consistent with prior values. 82 neutrophils 10 lymphs. Lactic acid level was normal at 1.3. COVID was negative. Influenza A & B were negative. Electrolytes normal. BUN 24 which is consistent or lower than prior values. Creatinine 1.7 consistent with prior elevated values. Glucose elevated at 168 which is consistent with prior values. Bilirubin 2.1 which is elevated and consistent with prior values. INR 1.6 which is likely therapeutic for this patient. Urinalysis negative for acute infection. BNP markedly elevated at 6278. Chest x-ray reveals CHF. Patient given 20 mg of Lasix IV. Case discussed with Dr. Casiano the hospitalist who accepted the patient for admission. Sepsis Sepsis Identified: No Lab Data Result diagrams: 04/22/22 23:52 04/22/22 23:52 Labs: Lab Results 04/22/22 04/22/22 04/22/22 Range/Units 23:52 23:52 23:52 WBC 8.0 (4.5-11.0) K/mcL RBC 3.94 L (4.63-6.08) M/mcL Hgb 12.3 L (13.7-17.5) g/dL Hct 37.6 L (40.1-51.0) % MCV 95.4 (80.0-100.0) fL MCH 31.2 (26.0-34.0) pg MCHC 32.7 (31.0-36.0) g/dL RDW 17.7 H (11.5-14.5) % Plt Count 115 L (140-440) K/mcL MPV 9.5 (7.4-10.4) fL Immature Gran % (Auto) 0.2 (0.0-0.5) % Neut % (Auto) 82.6 H (38.0-78.0) % Lymph % (Auto) 9.5 L (15.5-49.0) % [place] % (Auto) 7.2 (1.0-12.0) % Eos % (Auto) 0.4 (0.0-7.0) % Baso % (Auto) 0.1 (0.0-2.0) % Lymph # (Auto) 0.76 L (1.50-4.80) K/mcL [place] # (Auto) 0.58 (0.10-0.90) K/mcL Eos # (Auto) 0.03 (0.00-0.70) K/mcL Baso # (Auto) 0.01 (0.00-0.30) K/mcL Seg Neutrophils % (38-78) % Band Neutrophils % (0-10) % Lymphocytes % (15-49) % Monocytes % (Manual) (1-12) % Immature Gran # 0.02 (0.00-0.05) K/mcl Absolute Neutrophils 6.61 (1.80-8.00) K/mcL Platelet Estimate (Normal) RBC Morphology (Normal) Anisocytosis (None Seen) PT (11.9-14.5) sec INR (0.9-1.1) VBG Lactic Acid 1.3 (0.5-2.0) mmol/L Sodium 134 (133-145) mmol/L Potassium 3.3 (3.3-5.1) mmol/L Chloride 99 (96-108) mmol/L Carbon Dioxide 22 (22-30) mmol/L Anion Gap 13.0 (8.0-16.0) BUN 24 H (8-23) mg/dL Creatinine 1.7 H (0.7-1.2) mg/dL GFR Calculation 39 Glucose 168 H (70-105) mg/dL Calcium 8.3 L (8.6-10.4) mg/dL Total Bilirubin 2.1 H (0.1-1.0) mg/dL AST 19 (<40) U/L ALT 10 (<40) U/L Alkaline Phosphatase 150 H (39-117) U/L Lactate Dehydrogenase (135-225) U/L NT-Pro-B Natriuret Pep (<125.0) pg/mL Total Protein 5.7 L (5.9-8.4) gm/dL Albumin 2.8 L (3.2-5.2) gm/dL Globulin 2.9 (2.2-3.7) gm/dL Albumin/Globulin Ratio 1.0 (1.0-2.3) Procalcitonin (<0.10) ng/mL Urine Color Urine Appearance (Clear) Urine pH (5.0-9.0) Ur Specific [place] (1.000-1.035) Urine Protein (Negative) mg/dL Urine Glucose (UA) (Negative) mg/dL Urine Ketones (Negative) mg/dL Urine Occult Blood (Negative) mayuri/mcL Urine Nitrate (Negative) Urine Bilirubin (Negative) mg/dL Urine Urobilinogen mg/dL Ur Leukocyte Esterase (Negative) /uL Ur Culture Indicated? 04/23/22 04/23/22 04/23/22 Range/Units 05:41 07:41 07:42 WBC (4.5-11.0) K/mcL RBC (4.63-6.08) M/mcL Hgb (13.7-17.5) g/dL Hct (40.1-51.0) % MCV (80.0-100.0) fL MCH (26.0-34.0) pg MCHC (31.0-36.0) g/dL RDW (11.5-14.5) % Plt Count (140-440) K/mcL MPV (7.4-10.4) fL Immature Gran % (Auto) (0.0-0.5) % Neut % (Auto) (38.0-78.0) % Lymph % (Auto) (15.5-49.0) % [place] % (Auto) (1.0-12.0) % Eos % (Auto) (0.0-7.0) % Baso % (Auto) (0.0-2.0) % Lymph # (Auto) (1.50-4.80) K/mcL [place] # (Auto) (0.10-0.90) K/mcL Eos # (Auto) (0.00-0.70) K/mcL Baso # (Auto) (0.00-0.30) K/mcL Seg Neutrophils % 81 H (38-78) % Band Neutrophils % 3 (0-10) % Lymphocytes % 7 L (15-49) % Monocytes % (Manual) 9 (1-12) % Immature Gran # (0.00-0.05) K/mcl Absolute Neutrophils (1.80-8.00) K/mcL Platelet Estimate Decreased A (Normal) RBC Morphology Abnormal A (Normal) Anisocytosis 1+ A (None Seen) PT (11.9-14.5) sec INR (0.9-1.1) VBG Lactic Acid (0.5-2.0) mmol/L Sodium (133-145) mmol/L Potassium (3.3-5.1) mmol/L Chloride (96-108) mmol/L Carbon Dioxide (22-30) mmol/L Anion Gap (8.0-16.0) BUN (8-23) mg/dL Creatinine (0.7-1.2) mg/dL GFR Calculation Glucose (70-105) mg/dL Calcium (8.6-10.4) mg/dL Total Bilirubin (0.1-1.0) mg/dL AST (<40) U/L ALT (<40) U/L Alkaline Phosphatase (39-117) U/L Lactate Dehydrogenase (135-225) U/L NT-Pro-B Natriuret Pep (<125.0) pg/mL Total Protein (5.9-8.4) gm/dL Albumin (3.2-5.2) gm/dL Globulin (2.2-3.7) gm/dL Albumin/Globulin Ratio (1.0-2.3) Procalcitonin 0.15 H (<0.10) ng/mL Urine Color Yellow Urine Appearance Clear (Clear) Urine pH 5.5 (5.0-9.0) Ur Specific [place] 1.010 (1.000-1.035) Urine Protein Negative (Negative) mg/dL Urine Glucose (UA) Negative (Negative) mg/dL Urine Ketones Negative (Negative) mg/dL Urine Occult Blood Negative (Negative) mayuri/mcL Urine Nitrate Negative (Negative) Urine Bilirubin Negative (Negative) mg/dL Urine Urobilinogen 2.0 e.u./dl A mg/dL Ur Leukocyte Esterase Negative (Negative) /uL Ur Culture Indicated? No 04/23/22 04/23/22 04/23/22 Range/Units 23:52 23:52 23:52 WBC (4.5-11.0) K/mcL RBC (4.63-6.08) M/mcL Hgb (13.7-17.5) g/dL Hct (40.1-51.0) % MCV (80.0-100.0) fL MCH (26.0-34.0) pg MCHC (31.0-36.0) g/dL RDW (11.5-14.5) % Plt Count (140-440) K/mcL MPV (7.4-10.4) fL Immature Gran % (Auto) (0.0-0.5) % Neut % (Auto) (38.0-78.0) % Lymph % (Auto) (15.5-49.0) % [place] % (Auto) (1.0-12.0) % Eos % (Auto) (0.0-7.0) % Baso % (Auto) (0.0-2.0) % Lymph # (Auto) (1.50-4.80) K/mcL [place] # (Auto) (0.10-0.90) K/mcL Eos # (Auto) (0.00-0.70) K/mcL Baso # (Auto) (0.00-0.30) K/mcL Seg Neutrophils % (38-78) % Band Neutrophils % (0-10) % Lymphocytes % (15-49) % Monocytes % (Manual) (1-12) % Immature Gran # (0.00-0.05) K/mcl Absolute Neutrophils (1.80-8.00) K/mcL Platelet Estimate (Normal) RBC Morphology (Normal) Anisocytosis (None Seen) PT 19.2 H (11.9-14.5) sec INR 1.6 H (0.9-1.1) VBG Lactic Acid (0.5-2.0) mmol/L Sodium (133-145) mmol/L Potassium (3.3-5.1) mmol/L Chloride (96-108) mmol/L Carbon Dioxide (22-30) mmol/L Anion Gap (8.0-16.0) BUN (8-23) mg/dL Creatinine (0.7-1.2) mg/dL GFR Calculation Glucose (70-105) mg/dL Calcium (8.6-10.4) mg/dL Total Bilirubin (0.1-1.0) mg/dL AST (<40) U/L ALT (<40) U/L Alkaline Phosphatase (39-117) U/L Lactate Dehydrogenase 219 (135-225) U/L NT-Pro-B Natriuret Pep 6478.0 H (<125.0) pg/mL Total Protein (5.9-8.4) gm/dL Albumin (3.2-5.2) gm/dL Globulin (2.2-3.7) gm/dL Albumin/Globulin Ratio (1.0-2.3) Procalcitonin (<0.10) ng/mL Urine Color Urine Appearance (Clear) Urine pH (5.0-9.0) Ur Specific [place] (1.000-1.035) Urine Protein (Negative) mg/dL Urine Glucose (UA) (Negative) mg/dL Urine Ketones (Negative) mg/dL Urine Occult Blood (Negative) mayuri/mcL Urine Nitrate (Negative) Urine Bilirubin (Negative) mg/dL Urine Urobilinogen mg/dL Ur Leukocyte Esterase (Negative) /uL Ur Culture Indicated? ED POC Tests ED POC Tests: AMY - Influenza A Negative AMY - Influenza B Negative AMY - SARS Antigen Negative EKG Data EKG #1: EKG shows normal: axis Rate: normal (30 white count was normal at 8 with a hemoglobin low at 12.3 but consistent with prior values. 82 neutrophils 10 lymphs. Lactic acid level was normal at 1.3.) Interpretation: other (Ventricular paced rhythm. No further interpretation.) Discharge Plan Patient/Caregiver Discharge Instructions Pt seen by WEAVING SUPERVISOR/PA only: No Clinical Impression: Acute CHF (congestive heart failure) Qualifiers: Heart failure type: unspecified Qualified Code(s): I50.9 - Heart failure, unspecified Fever Qualifiers: Fever type: unspecified Qualified Code(s): R50.9 - Fever, unspecified Patient Disposition: Xfer As Inpt ([facility]) Condition: Serious Follow up with: Fletcher Perera MD [Primary Care Provider] - Prescriptions: No Action losartan 25 mg tablet 25 mg PO QDAY Qty: 90 3RF carvedilol 12.5 mg tablet 12.5 mg PO BID Qty: 180 3RF eplerenone [Inspra] 25 mg tablet 25 mg PO QDAY Qty: 90 3RF gabapentin 600 mg tablet 600 mg PO qhs Qty: 90 3RF torsemide 20 mg tablet 20 mg PO QAM Qty: 90 3RF atorvastatin 40 mg tablet 40 mg PO QHS Qty: 90 3RF potassium chloride [Klor-Con M20] 20 mEq tablet,ER particles/crystals 20 meq PO BID Qty: 180 3RF Rx Instructions: CORRECT DOSE (40MEQ BID). PATIENT REPORTED HIS RX BOTTLE STATES HE HAS REFILLS. aspirin 81 mg tablet,delayed release (DR/EC) 81 mg PO QDAY coenzyme Q10 200 mg capsule 200 mg PO QDAY cholecalciferol (vitamin D3) 2,000 unit capsule 2,000 unit PO QDAY Label Comments: take 2 capsules daily cyanocobalamin (vitamin B-12) 1,000 mcg tablet 1,000 mcg PO QDAY nitroglycerin 0.4 mg tablet, sublingual 0.4 mg SUBLINGUAL Q5-15MIN PRN (Reason: Chest Pain) milrinone Continuous IV Infusion multivitamin with iron-mineral tablet 1 tab PO QDAY Qty: 100 3RF Rx Instructions: give with food (meal/snack) warfarin 3 mg tablet 6 mg PO .COMPLEX Qty: 60 12RF Hold Instructions: Doctor's Order Protocol: Dose Management Protocol Text: Patient Instructed to take: warfarin 5 mg (1 Tab) on MO, WE, FR warfarin 5 mg (0.5 Tab) on , , Rx Instructions: Skip Sa/Miles; 5 mg x 5 days primidone 50 mg tablet 50 mg PO QHS warfarin 5 mg tablet 5 mg PO .COMPLEX Qty: 90 0RF Hold Instructions: Doctor's Order Protocol: Dose Management Protocol Text: Patient Instructed to take: warfarin 5 mg (1 Tab) on , , FR warfarin 5 mg (0.5 Tab) on , , Rx Instructions: 5mg Sat/Sat/Sat, 2.5mg Sat//, Skip Sun neomycin-polymyxin B-dexameth [Maxitrol] 3.5mg/mL-10,000 unit/mL-0.1 % drops,suspension 1 drp ophthalmic (eye) Q8H Qty: 5 0RF Rx Instructions: today 03/24 put one drop in left eye every hour or so. beginning tomorrow, put one drop in left eye three times a day for two weeks.
[2022-04-23 01:01] LABS: Basophils # (Auto) 0.01 K/mcL (0.00-0.30); Basophils % (Auto) 0.1 % (0.0-2.0); Eosinophils # (Auto) 0.03 K/mcL (0.00-0.70); Eosinophils % (Auto) 0.4 % (0.0-7.0); Hematocrit 37.6 % (40.1-51.0); Hemoglobin 12.3 g/dL (13.7-17.5); Lymphocytes # (Auto) 0.76 K/mcL (1.50-4.80); Lymphocytes % (Auto) 9.5 % (15.5-49.0); Mean Cell Volume 95.4 fL (80.0-100.0); Mean Corpuscular HGB Conc 32.7 g/dL (31.0-36.0); Mean Platelet Volume 9.5 fL (7.4-10.4); Monocytes # (Auto) 0.58 K/mcL (0.10-0.90); Monocytes % (Auto) 7.2 % (1.0-12.0); Neutrophils % (Auto) 82.6 % (38.0-78.0); Platelet Count 115 K/mcL (140-440); RBC 3.94 M/mcL (4.63-6.08); Red Cell Distribution Width 17.7 % (11.5-14.5)
[2022-04-23 01:18] LABS: ALT/SGPT 10 U/L (<40); AST/SGOT 19 U/L (<40); Albumin 2.8 gm/dL (3.2-5.2); Alkaline Phosphatase 150 U/L (39-117); Bilirubin,Total 2.1 mg/dL (0.1-1.0); Blood Urea Nitrogen 24 mg/dL (8-23); Calcium 8.3 mg/dL (8.6-10.4); Carbon Dioxide 22 mmol/L (22-30); Chloride 99 mmol/L (96-108); Globulin 2.9 gm/dL (2.2-3.7); Glomerular Filtration Rate 39; Glucose 168 mg/dL (70-105)
[2022-04-23 01:21] LABS: INR 1.6 (0.9-1.1); Prothrombin Time 19.2 sec (11.9-14.5)
[2022-04-23] MEDS ORDERED: BENZONATATE 100 MG CAPSULE PO ONE (05:19)
[2022-04-23] MEDS: ERYTHROMYCIN OPHTH OINT 3.5GM TUBE OS SCH ×5 (05:30→21:03)
[2022-04-23] MEDS ORDERED: FUROSEMIDE 20 MG/2 ML VIAL IV ONE (06:13)
[2022-04-23 06:26] LABS: Appearance,Urine Clear (Clear); Bilirubin,Urine Negative (Negative); Color,Urine Yellow; Culture Indicated,Urine No; Glucose,Urine (UA) Negative (Negative); Ketones,Urine Negative (Negative); Leukocyte Esterase,Urine Negative /uL (Negative); Nitrate,Urine Negative (Negative); PH,Urine 5.5 (5.0-9.0); Protein,Urine Negative (Negative); Urine Blood Negative ery/mcL (Negative); Urobilinogen,Urine 2.0 E.U./dL mg/dL
--- NOTE | 2022-04-23 08:16 | Internal Med History&Physical ---
HPI History of Present Illness Patient information: Note initiated : 04/23/22 at 8:04 am Service Date, if different from initiated Date: [] Patient: Jameson Stewart 76 y/o M admitted on for weakness. Chief Complaint: [] History of present illness: Mr. Stewart is a 76 year old M Presents to the ED for generalized weakness coughing fever. He has had rib fractures that he sustained couple weeks ago that he believes been complicating the issue. He has been unable to walk around his house safely due to weakness per his . In the ED his temperature on arrival was 101.7. Patient with history of ischemic cardiomyopathy with systolic and diastolic dysfunction, chronic kidney disease, atrial fibrillation with pacemaker and defibrillator, COPD, diabetes, CAD with stents. Patient is on milrinone every other day IV. Rapid COVID and flu in the ED was negative. Patient started on antibiotics in the ED. Patient is on a milrinone drip. He was not a candidate for heart transplant. Discussion with the retoucher photoengraving they thought they could give him some quality of life with a milrinone drip for couple months to maybe a couple years but he is still doing relatively well 4 years later. Patient says his weight has gone up a little bit but he attributes that to eating more lately. He says he has had more salt lately because of the holiday. He does not have any more edema than he usually does. He does have a productive cough that is new with clear yellow sputum. He has has had chills. No chest pain. And he feels he has had a little bit more wheezing than usual. Review of Systems: Pertinent positives as above. Denies headac he/fever/chills/nausea/vomiting/chest or abdominal pain/diarrhea. Remaining 10 point review of system reviewed negative PFSH PFSH All Active Problems (Updated 04/23/22 @ 08:55 by Dhiraj Banks MD) Pneumonia due to 2019 novel coronavirus (Acute) Abdominal pain (Acute) Hematoma (Acute) Acute pain of left shoulder (Acute) Acute CHF (congestive heart failure) (Acute) Fever (Acute) Cellulitis of right lower extremity (Acute) Acute pansinusitis (Acute) Headache (Acute) Bleeding from PICC line (Acute) Dry eye of left side (Acute) Congestive heart failure (Chronic) MCFP current use of anticoagulant therapy (Chronic) CAD (coronary artery disease) (Chronic) Ischemic dilated cardiomyopathy (Chronic) Cardiomyopathy, secondary (Chronic) Diabetes mellitus, type II (Chronic) CKD (chronic kidney disease), stage III (Chronic) Diabetes mellitus type 2, controlled, with complications (Chronic) Epistaxis (Acute) Presence of combination internal cardiac defibrillator (ICD) and pacemaker (Chronic) Hypertensive renal disease (Chronic) Hypertension, essential, benign (Chronic) Hyperlipidemia (Chronic) Benign essential tremor (Chronic) Lower extremity edema (Chronic) Raynaud's syndrome (Chronic) Degenerative disc disease (Chronic) History of colonic polyps (Chronic) BPH without urinary obstruction (Chronic) Medical History (Updated 04/23/22 @ 08:55 by Dhiraj Banks MD) Acute kidney failure Ankle fracture L Benign essential tremor BPH without urinary obstruction CAD (coronary artery disease) [place] stentX2 Cardiomyopathy, secondary Cholecystitis with cholelithiasis Cholecystitis, acute with cholelithiasis Cholelithiasis and cholecystitis without obstruction CKD (chronic kidney disease), stage III most recent s.creat is 1.3 which equals to egfr of 56 l/min per MDRD equation s.creat at baseline is 1.1-1.3 and he does have recent worsening of his renal function in the setting of worsening CHF symptoms His recent worsening is likely sec to cardio renal syndrome, he has h/o DM type 2 and HTN as additional risk factor for renal disease His UA in 04/2015 showed + prt and few RBC at this point, will recheck labs and renal US advised to avoid NSAIDS, volume depletion advised to follow low sodium diet will monitor Congestive heart failure COPD exacerbation Moderate obstructive lung disease 2014 Degenerative disc disease L spine Diabetes mellitus type 2, controlled, with complications Diabetes mellitus, type II Diverticulitis Diverticulitis large intestine awaiting endoscopy already organized for later this week, no changes needed at present for that Diverticulitis large intestine Gastritis Hemoptysis History of colonic polyps History of echocardiogram (07/20/15) Hyperlipidemia Hypertension, essential, benign Hypertensive renal disease BP at goal ct current meds follow low sodium diet 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 Lower extremity edema much improved ct torsemide imp to follow less than 2gm/day sodum diet monitor weight and edema call if worsening symptoms Nasal fracture Paroxysmal atrial fibrillation Pitting edema Pneumonia with lower lobe abscess L lung Presence of combination internal cardiac defibrillator (ICD) and pacemaker Radial fracture Raynaud's syndrome Ribs, multiple fractures Sepsis UTI (urinary tract infection) Surgical History History of colonoscopy (08/29/15) History of coronary artery stent placement LAD with re-stent History of diverticular abscess DIVERTICULAR/COLOSTOMY AND REANASTOMOSIS History of esophagogastroduodenoscopy (07/22/15) History of hip surgery (09/27/14) Dr Vogel- Right hip arthroplasty using [place] components History of lumbosacral spine surgery 2013,1995 Juan 2013, Yuri 96-lumbar fusion History of pacemaker History of right hip replacement 2013 History of shoulder surgery R RTC Status post lumbar discectomy Family History Father , 89 Abdominal aortic aneurysm Atherosclerosis of coronary artery Essential hypertension Osteoarthritis Mother , mother alive at 88 Atherosclerosis of coronary artery Diabetes mellitus NOS Essential hypertension Other Pneumonia involving right lung Social History marital status: education level: college occupational status: 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 smoking status: Former smoker quit date: 07/31/14 alcohol intake frequency: holiday/special occasion only MEDS/ALLERGIES Home Medications and Allergies Home Medications Medication Instructions Recorded Confirmed Type cholecalciferol (vitamin D3) 50 2,000 unit PO QDAY 02/09/15 04/23/22 History mcg (2,000 unit) capsule coenzyme Q10 200 mg capsule 200 mg PO QDAY 02/09/15 04/23/22 History cyanocobalamin (vitamin B-12) 1,000 mcg PO QDAY 02/09/15 04/23/22 History 1,000 mcg tablet nitroglycerin 0.4 mg sublingual 0.4 mg sublingual Q5-15MIN PRN 07/19/15 04/23/22 History tablet Chest Pain milrinone [Primacor] See Rx Instructions .Route .COMPLEX 12/18/17 04/23/22 History multivitamin with iron-mineral 1 tab PO QDAY #100 tabs 12/18/17 04/23/22 Rx eplerenone 25 mg tablet (Inspra) 25 mg PO QDAY #90 tabs 01/01/18 04/23/22 Rx atorvastatin 40 mg tablet 40 mg PO QHS #90 tabs 03/24/18 04/23/22 Rx primidone 50 mg tablet 100 mg PO QHS 03/31/18 04/23/22 History warfarin 5 mg tablet 5 mg PO .COMPLEX #90 tabs 08/11/18 04/23/22 Rx gonqipqk-sbtowuwpi-eyrummtr 3.5 1 drp ophthalmic (eye) Q8H #5 mL 03/24/21 04/23/22 Rx mg/mL-10,000 unit/mL-0.1% eye drops (Maxitrol) amiodarone 200 mg tablet 1 tab PO QDAY 04/23/22 04/23/22 History carvedilol 12.5 mg tablet 12.5 mg PO BID 04/23/22 04/23/22 History clindamycin phosphate 1 % lotion 1 ea topical BID Rash 04/23/22 04/23/22 History gabapentin 600 mg tablet 900 mg PO qhs 04/23/22 04/23/22 History levothyroxine 125 mcg tablet 1 tab PO QDAY 04/23/22 04/23/22 History losartan 25 mg tablet 12.5 mg PO BID 04/23/22 04/23/22 History potassium chloride 20 mEq 50 meq PO BID 04/23/22 04/23/22 History tablet,extended release(part/cryst) (Klor-Con M) torsemide 20 mg tablet 60 mg PO BID 04/23/22 04/23/22 History warfarin 2.5 mg tablet 2.5 mg PO 3XW 04/23/22 04/23/22 History Allergies Allergy/AdvReac Type Severity Reaction Status Date / Time Penicillins Allergy Mild Hives Verified 04/23/22 10:22 Sulfa (Sulfonamide Allergy Mild Hives Verified 04/23/22 10:22 Antibiotics) ethacrynic acid AdvReac Mild Diarrhea Verified 04/23/22 10:22 spironolactone AdvReac Mild vomiting Verified 04/23/22 10:22 EXAM Constitutional Vitals: Temp Pulse Resp BP Pulse Ox O2 Del Method 101.7 F H 89 24 H 116/92 92 04/22/22 22:33 04/23/22 07:37 04/23/22 07:37 04/23/22 07:33 04/23/22 07:37 04/22/22 22:33 Exam: General: Alert, Awake, No acute Distress Eyes/N/T: EOMI, PERRL, Head/Neck: neck supple, normocephalic atraumatic CV: Reg with some irregularity - mostly paced, No murmurs, normal s1/s2 Pulm: rhonchi b/l that mostly clears with cough, minimal wheezing Abd: soft, nontender, +BS x4 Ext: no clubbing/cyanosis. b/l LE venous stasis changes, very mild chronic edema Neuro: Alert, no focal deficits, moves all extremities, CN 2-12 grossly intact, symmetrical strength b/l upper/lower, sensations intact b/l upper/lower Skin: warm/dry, scalp wound DATA Data Completed and Pending Labs: Labs from last 24 hours 04/23/22 04/23/22 04/23/22 23:52 23:52 23:52 WBC RBC Hgb Hct MCV MCH MCHC RDW Plt Count MPV Immature Gran % (Auto) Neut % (Auto) Lymph % (Auto) [place] % (Auto) Eos % (Auto) Baso % (Auto) Lymph # (Auto) [place] # (Auto) Eos # (Auto) Baso # (Auto) Immature Gran # Absolute Neutrophils Platelet Estimate RBC Morphology PT 19.2 H INR 1.6 H VBG Lactic Acid Sodium Potassium Chloride Carbon Dioxide Anion Gap BUN Creatinine GFR Calculation Glucose Calcium Total Bilirubin AST ALT Alkaline Phosphatase Lactate Dehydrogenase 219 NT-Pro-B Natriuret Pep 6478.0 H Total Protein Albumin Globulin Albumin/Globulin Ratio Procalcitonin Urine Color Urine Appearance Urine pH Ur Specific [place] Urine Protein Urine Glucose (UA) Urine Ketones Urine Occult Blood Urine Nitrate Urine Bilirubin Urine Urobilinogen Ur Leukocyte Esterase Ur Culture Indicated? 04/23/22 04/23/22 04/23/22 07:42 07:41 05:41 WBC RBC Hgb Hct MCV MCH MCHC RDW Plt Count MPV Immature Gran % (Auto) Neut % (Auto) Lymph % (Auto) [place] % (Auto) Eos % (Auto) Baso % (Auto) Lymph # (Auto) [place] # (Auto) Eos # (Auto) Baso # (Auto) Immature Gran # Absolute Neutrophils Platelet Estimate Pending RBC Morphology Pending PT INR VBG Lactic Acid Sodium Potassium Chloride Carbon Dioxide Anion Gap BUN Creatinine GFR Calculation Glucose Calcium Total Bilirubin AST ALT Alkaline Phosphatase Lactate Dehydrogenase NT-Pro-B Natriuret Pep Total Protein Albumin Globulin Albumin/Globulin Ratio Procalcitonin Pending Urine Color Yellow Urine Appearance Clear Urine pH 5.5 Ur Specific [place] 1.010 Urine Protein Negative Urine Glucose (UA) Negative Urine Ketones Negative Urine Occult Blood Negative Urine Nitrate Negative Urine Bilirubin Negative Urine Urobilinogen 2.0 e.u./dl A Ur Leukocyte Esterase Negative Ur Culture Indicated? No 04/22/22 04/22/22 04/22/22 23:52 23:52 23:52 WBC 8.0 RBC 3.94 L Hgb 12.3 L Hct 37.6 L MCV 95.4 MCH 31.2 MCHC 32.7 RDW 17.7 H Plt Count 115 L MPV 9.5 Immature Gran % (Auto) 0.2 Neut % (Auto) 82.6 H Lymph % (Auto) 9.5 L [place] % (Auto) 7.2 Eos % (Auto) 0.4 Baso % (Auto) 0.1 Lymph # (Auto) 0.76 L [place] # (Auto) 0.58 Eos # (Auto) 0.03 Baso # (Auto) 0.01 Immature Gran # 0.02 Absolute Neutrophils 6.61 Platelet Estimate RBC Morphology PT INR VBG Lactic Acid 1.3 Sodium 134 Potassium 3.3 Chloride 99 Carbon Dioxide 22 Anion Gap 13.0 BUN 24 H Creatinine 1.7 H GFR Calculation 39 Glucose 168 H Calcium 8.3 L Total Bilirubin 2.1 H AST 19 ALT 10 Alkaline Phosphatase 150 H Lactate Dehydrogenase NT-Pro-B Natriuret Pep Total Protein 5.7 L Albumin 2.8 L Globulin 2.9 Albumin/Globulin Ratio 1.0 Procalcitonin Urine Color Urine Appearance Urine pH Ur Specific [place] Urine Protein Urine Glucose (UA) Urine Ketones Urine Occult Blood Urine Nitrate Urine Bilirubin Urine Urobilinogen Ur Leukocyte Esterase Ur Culture Indicated? A/P Narrative A/P Narrative: A: *PNA: -Ct with infiltrates RUL/RML, moderate emphysema with massive 18cm bullae *Dyspnea: 2/2 above + emphysema + complicated by underlying cardiomyopathy *COPD (not on home O2) and large Bullae: *CMP with systolic(15-20%)/diastolic(III) dysfxn and Valvular dz (moderate MR/TR) -aicd/ppm in place -On continuous milrinone infusion at home *CAD w/stents: on asa/statin *Chronic Afib: on warfarin/BB *CKD IIIb: *DM w/neuropathy: *Hypothyroidism: P: -pt high risk for poor outcome -Abx, BC/SC pending, mrsa screen -Prn O2 supp, nebs/RT -pct and rvp pending -cont home milrinone infusions -cont home Amio/BB, hold ARB until f/u renal fxn -cont diuretics in AM, did get IV lasix in ED -cont home asa/statin, -wound care -PT/OT -CM for placement needs -ppx: warfarin per pharm Time Spent With Patient Time: Total time spent is greater than 50% in coordination of care (as documented) at patient's floor/unit and/or counseling patient: Total time spent with greater than 50% in coordination of care (as documented) at patient's floor/unit and/or counseling patient:: Greater than 70 minutes
[2022-04-23] MEDS ORDERED: ACETAMINOPHEN 325 MG TABLET PO ONE (08:28)
--- NOTE | 2022-04-23 08:48 | XRay Report ---
. CLINICAL INFORMATION: Fever and weakness COMPARISON: 11/22/2021 TECHNIQUE: Portable FINDINGS: Moderate cardiomegaly is unchanged. Implantable cardioverter defibrillator remains in stable position without complication. Right PICC line tip is in satisfactory position overlying the SVC. Pulmonary vasculature is now moderately distended with mild interstitial edema throughout both lungs. Moderate underlying COPD with a giant (12 cm (bullae in the right lung base seen as before. No effusions. IMPRESSION: Moderate CHF. Underlying COPD. Interpreted and Authenticated by: Stanley Diop 04/23/22
[2022-04-23 08:55] LABS: Anisocytosis 1+ (None Seen); Band Neutrophils % 3 % (0-10); Lymphocytes % 7 % (15-49); Monocytes % (Manual) 9 % (1-12); Platelet Estimate DECREASED (Normal); RBC Morphology ABNORMAL (Normal); Segmented Neutrophils % 81 % (38-78)
[2022-04-23] MEDS ORDERED: POLYMYXN B OS SCH (09:00)
[2022-04-23] MEDS ORDERED: NEOMYCIN OS SCH (09:00)
[2022-04-23] MEDS ORDERED: GRAMICIDIN OS SCH (09:00)
[2022-04-23] MEDS: D5W IV SCH (09:30)
[2022-04-23] MEDS: MILRINONE LACTATE IV SCH (09:30)
--- NOTE | 2022-04-23 10:01 | Cat Scan Report ---
CLINICAL INFORMATION: COPD and CHF COMPARISON: Chest CT 09/04/2017 TECHNIQUE: 0.625 mm axial slices were obtained from the lung apices through the bases without intravenous contrast. 2.5 mm Sagittal, coronal and axial reformatted images were processed and reviewed at bone, lung and soft tissue windows. 7 mm axial MIP images were also reconstructed to optimize pulmonary nodule detection.The exam was performed using radiation dose optimization techniques including, but not limited to, automated exposure control, adjustment of the mA and/or kV according to patient size and use of iterative reconstruction technique. FINDINGS: Pulmonary parenchymal windows show moderate centrilobular emphysema featuring chronic bronchitis with elevated lung volumes and wall thickening/dilatation of bronchi. There are also scattered small bullae predominantly in the upper lobes. A massive (18 cm) bullae dominates the anterior right lower lobe. This is new since the 2018 comparison exam. Moderate fibrosis in the posterior lower lobes and scattered throughout both upper lobes appreciated. Small alveolar infiltrate are seen in the posterior segment right upper lobe and right middle lobe. There are no effusions Mediastinal windows show the heart is moderately enlarged with a small chronic pericardial effusion. This is unchanged. Pacemaker leads remain in stable satisfactory position. Noncontrast thoracic aorta is normal diameter. The central pulmonary arteries are moderately enlarged: main pulmonary diameter is 4 cm findings compatible with pulmonary hypertension related to COPD. Mildly enlarged lymph nodes in the lower mid mediastinum are unchanged from the 2018 remote study and compatible reactive adenopathy. The esophagus is grossly normal. The thyroid is unremarkable. Bone windows show no osseous abnormality. There is mild subcutaneous edema in the flanks. No other soft tissue abnormality. Images through the superior abdomen show simple cysts in the superior right kidney-no significant abnormality.. IMPRESSION: 1. CHF, seen on plain film seven hours prior, has resolved. Suspect interval diuretic therapy. There is moderate cardiomegaly with small pericardial effusion, but no evidence of pulmonary edema or peripheral pulmonary vascular congestion 2. Small infiltrates in the posterior right upper and right middle lobes. These could represent pneumonia. 3. Moderate centrilobular emphysema. A massive (18 cm) bullae in the anterior right lower lobe is new from [address] Rupture of this bullae will likely result in spontaneous right pneumothorax. 4. Mild adenopathy in the mid and lower mediastinum is stable 2018 and compatible benign reactive adenopathy. Interpreted and Authenticated by: Stanley Diop 04/23/22
[2022-04-23] MEDS ORDERED: NITROGLYCERIN 0.4 MG TAB.SUBL SL PRN (10:32)
[2022-04-23] MEDS ORDERED: MAGNESIUM SULFATE 2 GM/50 ML BAG IV PRN (10:35)
[2022-04-23] MEDS ORDERED: ACETAMINOPHEN 325 MG TABLET PO PRN (10:35)
[2022-04-23] MEDS ORDERED: IPRATROPIUM/ALBUTEROL 3 ML AMPUL.NEB NEB PRN (10:35)
[2022-04-23] MEDS ORDERED: POLYETHYLENE GLYCOL 3350 17 GM PACKET PO PRN (10:35)
[2022-04-23] MEDS ORDERED: POTASSIUM CHLORIDE 40 MEQ in DEXTROSE 5% IN WATER 500 ML IV PRN (10:35)
[2022-04-23] MEDS ORDERED: ONDANSETRON 4 MG/2 ML VIAL IV PRN (10:35)
[2022-04-23] MEDS ORDERED: DEXTROSE 50% 50 ML VIAL IV PRN (10:35)
[2022-04-23] MEDS ORDERED: POTASSIUM CHLORIDE 20 MEQ TABLET PO PRN ×2 (10:35)
[2022-04-23] MEDS ORDERED: SENNOSIDES 1 TABLET PO PRN (10:35)
[2022-04-23] MEDS ORDERED: DEXTROSE 31 GM ORAL.SUSP PO PRN (10:35)
[2022-04-23] MEDS ORDERED: WARFARIN 5 MG TABLET PO SCH (10:45)
[2022-04-23] MEDS ORDERED: MILRINONE SCH (10:45)
[2022-04-23] MEDS ORDERED: WARFARIN 2.5 MG TABLET PO SCH (10:45)
[2022-04-23] MEDS: INSULIN LISPRO 1 UNIT/0.01 ML UNIT SQ SCH ×3 (11:41→21:03)
[2022-04-23] MEDS ORDERED: MILRINONE LACTATE/D5W 20 MG in PREMIX 1 BAG IV SCH (12:00)
[2022-04-23] MEDS: 0.9 % SODIUM CHLORIDE 10 ML SYRINGE IV SCH ×2 (13:57→22:05)
[2022-04-23] MEDS: DEXAMETHASONE OU SCH ×2 (13:57→21:03)
[2022-04-23] MEDS: POLYMYXIN B OU SCH ×2 (13:57→21:03)
[2022-04-23] MEDS: NEOMYCIN OU SCH ×2 (13:57→21:03)
[2022-04-23] MEDS ORDERED: WARFARIN 5 MG TABLET PO ONE (14:00)
[2022-04-23 15:35] LABS: Hemoglobin A1C 7.4 % Hgb (4.0-6.0)
[2022-04-23] MEDS: POTASSIUM CHLORIDE 20 MEQ TABLET PO SCH (17:12)
[2022-04-23] MEDS: CARVEDILOL 12.5 MG TABLET PO SCH (17:12)
--- NOTE | 2022-04-23 19:33 | EKG ---
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
[2022-04-23] MEDS: TORSEMIDE 20 MG TABLET PO SCH (21:01)
[2022-04-23] MEDS: ATORVASTATIN 40 MG TABLET PO SCH (21:01)
[2022-04-23] MEDS: GABAPENTIN 300 MG CAPSULE PO SCH (21:02)
[2022-04-23] MEDS: PRIMIDONE 50 MG TABLET PO SCH (21:02)
[2022-04-23] MEDS: DOCUSATE SODIUM 100 MG CAPSULE PO SCH (21:03)
[2022-04-23] MEDS: IPRATROPIUM/ALBUTEROL 3 ML AMPUL.NEB NEB SCH (21:11)
[2022-04-24] MEDS: DEXAMETHASONE OU SCH ×3 (05:28→21:39)
[2022-04-24] MEDS: NEOMYCIN OU SCH ×3 (05:28→21:39)
[2022-04-24] MEDS: 0.9 % SODIUM CHLORIDE 10 ML SYRINGE IV SCH ×3 (05:28→21:38)
[2022-04-24] MEDS: POLYMYXIN B OU SCH ×3 (05:28→21:39)
[2022-04-24 06:21] LABS: Basophils # (Auto) 0.01 K/mcL (0.00-0.30); Basophils % (Auto) 0.1 % (0.0-2.0); Eosinophils # (Auto) 0.13 K/mcL (0.00-0.70); Eosinophils % (Auto) 1.5 % (0.0-7.0); Hematocrit 39.5 % (40.1-51.0); Hemoglobin 13.1 g/dL (13.7-17.5); Lymphocytes # (Auto) 0.78 K/mcL (1.50-4.80); Lymphocytes % (Auto) 9.2 % (15.5-49.0); Mean Cell Volume 96.3 fL (80.0-100.0); Mean Corpuscular HGB Conc 33.2 g/dL (31.0-36.0); Mean Platelet Volume 9.6 fL (7.4-10.4); Monocytes # (Auto) 0.64 K/mcL (0.10-0.90); Monocytes % (Auto) 7.5 % (1.0-12.0); Neutrophils % (Auto) 81.3 % (38.0-78.0); Platelet Count 130 K/mcL (140-440); Red Cell Distribution Width 17.7 % (11.5-14.5); WBC 8.5 K/mcL (4.5-11.0)
[2022-04-24 06:52] LABS: ALT/SGPT 10 U/L (<40); AST/SGOT 18 U/L (<40); Albumin 2.7 gm/dL (3.2-5.2); Albumin/Globulin Ratio 0.9 (1.0-2.3); Alkaline Phosphatase 140 U/L (39-117); Bilirubin,Direct 1.5 mg/dL (<0.3); Bilirubin,Total 2.2 mg/dL (0.1-1.0); Blood Urea Nitrogen 27 mg/dL (8-23); Calcium 8.4 mg/dL (8.6-10.4); Carbon Dioxide 24 mmol/L (22-30); Chloride 102 mmol/L (96-108); Globulin 2.9 gm/dL (2.2-3.7); Glomerular Filtration Rate 42; Glucose 124 mg/dL (70-105); Lactate Dehydrogenase 228 U/L (135-225); Phosphorous 2.9 mg/dL (2.5-4.5); Triglycerides 56 mg/dL (<150); Uric Acid 7.6 mg/dL (2.5-8.0)
[2022-04-24 06:57] LABS: INR 1.2 (0.9-1.1); Prothrombin Time 16.2 sec (11.9-14.5)
--- NOTE | 2022-04-24 07:36 | Internal Med Progress Note ---
SUBJECTIVE Subjective Patient information: Note initiated : 04/24/22 at 7:33 am Service Date, if different from initiated Date: [] Patient: Jameson Stewart 76 y/o M admitted on 04/23/22 for weakness. Chief Complaint: [] Interval history: History of present illness: Mr. Stewart is a 76 year old M Presents to the ED for generalized weakness coughing fever. He has had rib fractures that he sustained couple weeks ago that he believes been complicating the issue. He has been unable to walk around his house safely due to weakness per his . In the ED his temperature on arrival was 101.7. Patient with history of ischemic cardiomyopathy with systolic and diastolic dysfunction, chronic kidney disease, atrial fibrillation with pacemaker and defibrillator, COPD, diabetes, CAD with stents. Patient is on milrinone every other day IV. Rapid COVID and flu in the ED was negative. Patient started on antibiotics in the ED. Patient is on a milrinone drip. He was not a candidate for heart transplant. 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 Patient says his weight has gone up a little bit but he attributes that to eating more lately. He says he has had more salt lately because of the holiday. He does not have any more edema than he usually does. He does have a productive cough that is new with clear yellow sputum. He has has had chills. No chest pain. And he feels he has had a little bit more wheezing than usual. 04/24 Patient says he is feeling little bit better today. He says his cough is improving shortness of breath improved. INR subtherapeutic will provide Lovenox for bridging. Review of Systems: denies headache/fever/chills/nausea/vomiting/chest or abdominal pain/diarrhea. Otherwise see above. Constitutional Vitals: Vital Signs Temp Pulse Resp BP Pulse Ox O2 Del Method 97.5 F 90 20 111/79 95 04/24/22 04:01 04/24/22 05:54 04/24/22 05:54 04/24/22 05:01 04/24/22 05:54 04/24/22 04:01 Period Temp Pulse Resp BP Sys/Hassan Pulse Ox O2 Del Method O2 Flow Rate Last 24 Hr 97.5 F-101.0 F 38-95 12-27 78-128/57-107 83-97 Room Air-Room Air Intake and Output 04/23/22 04/24/22 04/24/22 21:59 05:59 13:59 Intake Total 400 Output Total 625 1225 Balance -225 -1225 Weight 102.829 kg Intake & Output: Intake & Output 04/23/22 04/24/22 04/24/22 21:59 05:59 13:59 Intake Total 400 Output Total 625 1225 Balance -225 -1225 Weight 102.829 kg Intake: Oral 400 Output: Urine Catheter Amount 550 Void Amount 625 675 Other: Meal Dinner Percent of Meal Consumed 100% Feeding Ability Independent Urine Appearance Clear Clear Urine Color Dark Lindsay Dark Lindsay Urine Odor Normal Strong Exam: General: Alert, Awake, No acute Distress Eyes/N/T: EOMI,, Head/Neck: neck supple, CV: Reg with some irregularity - mostly paced, No murmurs, Pulm: minimal rhonchi b/l, no wheezing today Abd: soft, nontender, +BS x4 Ext: no clubbing/cyanosis. b/l LE venous stasis changes, mild chronic edema Neuro: Alert, no focal deficits, moves all extremities, Skin: warm/dry, scalp wound OBJ DATA Labs CBC & Chem 7: 04/24/22 05:06 04/24/22 05:06 Labs: Abnormal Lab Results 04/24/22 04/24/22 04/24/22 05:06 05:06 05:05 RBC 4.10 L Hgb 13.1 L Hct 39.5 L RDW 17.7 H Plt Count 130 L Neut % (Auto) 81.3 H Lymph % (Auto) 9.2 L Lymph # (Auto) 0.78 L Seg Neutrophils % Lymphocytes % Platelet Estimate RBC Morphology Anisocytosis PT 16.2 H INR 1.2 H BUN 27 H Creatinine 1.6 H Glucose 124 H Hemoglobin A1c Calcium 8.4 L Total Bilirubin 2.2 H Direct Bilirubin 1.5 H GGT 187 H Alkaline Phosphatase 140 H Lactate Dehydrogenase 228 H NT-Pro-B Natriuret Pep Total Protein 5.6 L Albumin 2.7 L Albumin/Globulin Ratio 0.9 L Procalcitonin Urine Urobilinogen 04/23/22 04/23/22 04/23/22 23:52 23:52 07:42 RBC Hgb Hct RDW Plt Count Neut % (Auto) Lymph % (Auto) Lymph # (Auto) Seg Neutrophils % Lymphocytes % Platelet Estimate RBC Morphology Anisocytosis PT 19.2 H INR 1.6 H BUN Creatinine Glucose Hemoglobin A1c Calcium Total Bilirubin Direct Bilirubin GGT Alkaline Phosphatase Lactate Dehydrogenase NT-Pro-B Natriuret Pep 6478.0 H Total Protein Albumin Albumin/Globulin Ratio Procalcitonin 0.15 H Urine Urobilinogen 04/23/22 04/23/22 04/22/22 07:41 05:41 23:52 RBC Hgb Hct RDW Plt Count Neut % (Auto) Lymph % (Auto) Lymph # (Auto) Seg Neutrophils % 81 H Lymphocytes % 7 L Platelet Estimate Decreased A RBC Morphology Abnormal A Anisocytosis 1+ A PT INR BUN Creatinine Glucose Hemoglobin A1c 7.4 H Calcium Total Bilirubin Direct Bilirubin GGT Alkaline Phosphatase Lactate Dehydrogenase NT-Pro-B Natriuret Pep Total Protein Albumin Albumin/Globulin Ratio Procalcitonin Urine Urobilinogen 2.0 e.u./dl A 04/22/22 04/22/22 23:52 23:52 RBC 3.94 L Hgb 12.3 L Hct 37.6 L RDW 17.7 H Plt Count 115 L Neut % (Auto) 82.6 H Lymph % (Auto) 9.5 L Lymph # (Auto) 0.76 L Seg Neutrophils % Lymphocytes % Platelet Estimate RBC Morphology Anisocytosis PT INR BUN 24 H Creatinine 1.7 H Glucose 168 H Hemoglobin A1c Calcium 8.3 L Total Bilirubin 2.1 H Direct Bilirubin GGT Alkaline Phosphatase 150 H Lactate Dehydrogenase NT-Pro-B Natriuret Pep Total Protein 5.7 L Albumin 2.8 L Albumin/Globulin Ratio Procalcitonin Urine Urobilinogen Meds: Medications Acetaminophen (Acetaminophen 325 Mg Tablet) 650 mg PO Q6HP PRN; Protocol PRN Reason: Per Pain Protocol/Fever > 101 Albuterol/Ipratropium (Ipratropium/Albuterol 3 Ml Ampul.Neb) 3 ml NEB Q4HP PRN PRN Reason: Shortness Of Breath Albuterol/Ipratropium (Ipratropium/Albuterol 3 Ml Ampul.Neb) 3 ml NEB BID [facility] Last Admin: 04/23/22 21:11 Dose: 3 ml Amiodarone HCl (Amiodarone Hcl 200 Mg Tablet) 200 mg PO QDAY [facility] Atorvastatin Calcium (Atorvastatin 40 Mg Tablet) 40 mg PO QHS [facility] Last Admin: 04/23/22 21:01 Dose: 40 mg Carvedilol (Carvedilol 12.5 Mg Tablet) 12.5 mg PO BIDCC [facility] Last Admin: 04/23/22 17:12 Dose: 12.5 mg Dextrose (Dextrose 50% 50 Ml Vial) 0 ml IV UD PRN PRN Reason: Per Sliding Scale Diagnostic Test (Pha) (Accu-Chek 1 Each Strip) 1 each FS ACHS [facility] Last Admin: 04/23/22 21:02 Dose: 1 each Docusate Sodium (Docusate Sodium 100 Mg Capsule) 100 mg PO BID [facility] Last Admin: 04/23/22 21:03 Dose: 100 mg Erythromycin (Erythromycin Ophth Oint 3.5gm Tube) 1 ribbon OS QID [facility] Last Admin: 04/23/22 21:03 Dose: 1 ribbon Gabapentin (Gabapentin 300 Mg Capsule) 900 mg PO HS [facility] Last Admin: 04/23/22 21:02 Dose: 900 mg Glucose (Dextrose 31 Gm Oral.Susp) 15 gm PO PRN PRN PRN Reason: Hypoglycemia Potassium Chloride 40 meq/ (Dextrose) 520 mls @ 130 mls/hr IV UD PRN PRN Reason: Potassium < 3 Magnesium Sulfate (Magnesium Sulfate) 2 gm in 50 mls @ 50 mls/hr IV UD PRN PRN Reason: Magnesium </= 1.6 Levofloxacin (Levaquin) 750 mg in 150 mls @ 100 mls/hr IV Q24H [facility]; Protocol Milrinone Lactate/Dextrose 120 (mg/ Patient Own Medication) 600 mls @ 11.9 mls/hr IV Q48H [facility] Last Admin: 04/23/22 09:30 Dose: 11.9 mls/hr Insulin Human Lispro (Insulin Lispro 1 Unit/0.01 Ml Unit) 0 unit SQ ACHS [facility]; Protocol Last Admin: 04/23/22 21:03 Dose: Not Given Levothyroxine Sodium (Levothyroxine 125 Mcg Tablet) 125 mcg PO QAMAC [facility] Losartan Potassium (Losartan 25 Mg Tablet) 12.5 mg PO BID [facility] Nitroglycerin (Nitroglycerin 0.4 Mg Tab.Subl) 0.4 mg SL Q5M PRN PRN Reason: Chest Pain Ondansetron HCl (Ondansetron 4 Mg/2 Ml Vial) 4 mg IV Q4HP PRN PRN Reason: Nausea And Vomiting Clindamycin (Phosphate 1 % Lotion) 1 dose TOPICAL BID [facility] Last Admin: 04/23/22 21:03 Dose: Not Given Eplerenone [Inspra] (25 Mg Tablet) 1 dose PO QDAY [facility] Neomycin-Polymyxin B -Dexameth [Maxitrol] Drops 1 dose OU Q8H [facility] Last Admin: 04/24/22 05:28 Dose: Not Given Polyethylene Glycol (Polyethylene Glycol 3350 17 Gm Packet) 17 gm PO DAILYP PRN PRN Reason: Constipation Potassium Chloride (Potassium Chloride 20 Meq Tablet) 50 meq PO BIDCC [facility] Last Admin: 04/23/22 17:12 Dose: 50 meq Potassium Chloride (Potassium Chloride 20 Meq Tablet) 40 meq PO UD PRN PRN Reason: Potssium is 3-3.5 Potassium Chloride (Potassium Chloride 20 Meq Tablet) 40 meq PO UD PRN PRN Reason: Potassium < 3 Primidone (Primidone 50 Mg Tablet) 100 mg PO QHS [facility] Last Admin: 04/23/22 21:02 Dose: 100 mg Senna (Sennosides 1 Tablet) 2 tab PO DAILYP PRN PRN Reason: Constipation Sodium Chloride (0.9 % Sodium Chloride 10 Ml Syringe) 10 ml IV Q8 [facility] Last Admin: 04/24/22 05:28 Dose: 10 ml Torsemide (Torsemide 20 Mg Tablet) 60 mg PO BID [facility] Last Admin: 04/23/22 21:01 Dose: 60 mg Warfarin Sodium (Warfarin Per Pharmacy) 1 order PO UD [facility] A/P Narrative A/P Narrative: A: *PNA: -CT with infiltrates RUL/RML, moderate emphysema with massive 18cm bullae *Dyspnea: 2/2 above + emphysema + complicated by underlying cardiomyopathy *COPD (not on home O2) and large Bullae: *CMP with systolic(15-20%)/diastolic(III) dysfxn and Valvular dz (moderate MR/TR) -aicd/ppm in place -On continuous milrinone infusion at home *CAD w/stents: on asa/statin *Chronic Afib: on warfarin/BB *CKD IIIb: *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
[2022-04-24] MEDS: INSULIN LISPRO 1 UNIT/0.01 ML UNIT SQ SCH ×4 (07:44→21:16)
[2022-04-24] MEDS: CARVEDILOL 12.5 MG TABLET PO SCH ×2 (07:51→17:15)
[2022-04-24] MEDS: LEVOTHYROXINE 125 MCG TABLET PO SCH (07:51)
[2022-04-24] MEDS: POTASSIUM CHLORIDE 20 MEQ TABLET PO SCH ×2 (07:51→17:15)
[2022-04-24] MEDS: IPRATROPIUM/ALBUTEROL 3 ML AMPUL.NEB NEB SCH ×2 (08:45→21:10)
[2022-04-24] MEDS: LOSARTAN 25 MG TABLET PO SCH ×2 (08:48→21:18)
[2022-04-24] MEDS: DOCUSATE SODIUM 100 MG CAPSULE PO SCH ×2 (08:48→21:18)
[2022-04-24] MEDS: AMIODARONE HCL 200 MG TABLET PO SCH (08:48)
[2022-04-24] MEDS: TORSEMIDE 20 MG TABLET PO SCH ×2 (08:49→21:18)
[2022-04-24] MEDS: ERYTHROMYCIN OPHTH OINT 3.5GM TUBE OS SCH ×4 (08:49→21:21)
[2022-04-24] MEDS: LEVOFLOXACIN 750 MG/150 ML BAG IV SCH (08:49)
[2022-04-24] MEDS: ENOXAPARIN 100 MG/ML SYRINGE SQ SCH ×2 (08:49→21:17)
--- NOTE | 2022-04-24 12:33 | Internal Med Progress Note ---
SUBJECTIVE Subjective Patient information: Note initiated : 04/24/22 at 12:31 pm Service Date, if different from initiated Date: [] Patient: Jameson Stewart 76 y/o M admitted on 04/23/22 for weakness. Chief Complaint: [] Interval history: History of present illness: Mr. Stewart is a 76 year old M Presents to the ED for generalized weakness coughing fever. He has had rib fractures that he sustained couple weeks ago that he believes been complicating the issue. He has been unable to walk around his house safely due to weakness per his . In the ED his temperature on arrival was 101.7. Patient with history of ischemic cardiomyopathy with systolic and diastolic dysfunction, chronic kidney disease, atrial fibrillation with pacemaker and defibrillator, COPD, diabetes, CAD with stents. Patient is on milrinone every other day IV. Rapid COVID and flu in the ED was negative. Patient started on antibiotics in the ED. Patient is on a milrinone drip. He was not a candidate for heart transplant. 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 Patient says his weight has gone up a little bit but he attributes that to eating more lately. He says he has had more salt lately because of the holiday. He does not have any more edema than he usually does. He does have a productive cough that is new with clear yellow sputum. He has has had chills. No chest pain. And he feels he has had a little bit more wheezing than usual. 04/24 Patient says he is feeling little bit better today. He says his cough is improving shortness of breath improved. INR subtherapeutic will provide Lovenox for bridging. 04/25 Physical exam Head: Atraumatic, normal inspection. Eyes: normal appearance, no scleral icterus. Neck: full ROM Respiratory: no respiratory distress. Cardiovascular: normal rate and rhythm, S1, S2. GI/Abdominal: soft, nontender, no guarding. Extremities: full range of motion, nontender. Neurological: CN II-XII intact, intact motor, intact sensation. Psychiatric: normal mood. Skin: warm, normal color Constitutional Vitals: Vital Signs Temp Pulse Resp BP Pulse Ox O2 Del Method 97.3 F 80 16 93/77 95 09/13/22 12:01 04/24/22 12:01 04/24/22 12:01 04/24/22 12:01 04/24/22 12:01 04/24/22 12:01 Period Temp Pulse Resp BP Sys/Hassan Pulse Ox O2 Del Method O2 Flow Rate Last 24 Hr 97.2 F-98.7 F 38-93 12-26 78-117/57-90 83-97 Room Air-Room Air Intake and Output 04/23/22 04/24/22 04/24/22 21:59 05:59 13:59 Intake Total 400 630 Output Total 625 1225 425 Balance -225 -1225 205 Weight 102.829 kg 102.829 kg Patient Weight 04/25/22 05:59 Weight 102.829 kg Intake & Output: Intake & Output 04/23/22 04/24/22 04/24/22 21:59 05:59 13:59 Intake Total 400 630 Output Total 625 1225 425 Balance -225 -1225 205 Weight 102.829 kg 102.829 kg Intake: IV 150 Oral 400 480 Output: Urine Catheter Amount 550 425 Void Amount 625 675 Other: Meal Dinner Breakfast Percent of Meal Consumed 100% 100% Feeding Ability Independent Urine Appearance Clear Clear Clear Urine Color Dark Lindsay Dark Lindsay Dark Yellow Urine Odor Normal Strong OBJ DATA Labs CBC & Chem 7: 04/24/22 05:06 04/24/22 05:06 Labs: Abnormal Lab Results 04/24/22 04/24/22 04/24/22 05:06 05:06 05:05 RBC 4.10 L Hgb 13.1 L Hct 39.5 L RDW 17.7 H Plt Count 130 L Neut % (Auto) 81.3 H Lymph % (Auto) 9.2 L Lymph # (Auto) 0.78 L Seg Neutrophils % Lymphocytes % Platelet Estimate RBC Morphology Anisocytosis PT 16.2 H INR 1.2 H BUN 27 H Creatinine 1.6 H Glucose 124 H Hemoglobin A1c Calcium 8.4 L Total Bilirubin 2.2 H Direct Bilirubin 1.5 H GGT 187 H Alkaline Phosphatase 140 H Lactate Dehydrogenase 228 H NT-Pro-B Natriuret Pep Total Protein 5.6 L Albumin 2.7 L Albumin/Globulin Ratio 0.9 L Procalcitonin Urine Urobilinogen 04/23/22 04/23/2204/23/22 23:52 23:52 07:42 RBC Hgb Hct RDW Plt Count Neut % (Auto) Lymph % (Auto) Lymph # (Auto) Seg Neutrophils % Lymphocytes % Platelet Estimate RBC Morphology Anisocytosis PT 19.2 H INR 1.6 H BUN Creatinine Glucose Hemoglobin A1c Calcium Total Bilirubin Direct Bilirubin GGT Alkaline Phosphatase Lactate Dehydrogenase NT-Pro-B Natriuret Pep 6478.0 H Total Protein Albumin Albumin/Globulin Ratio Procalcitonin 0.15 H Urine Urobilinogen 04/23/22 04/23/22 04/22/22 07:41 05:41 23:52 RBC Hgb Hct RDW Plt Count Neut % (Auto) Lymph % (Auto) Lymph # (Auto) Seg Neutrophils % 81 H Lymphocytes % 7 L Platelet Estimate Decreased A RBC Morphology Abnormal A Anisocytosis 1+ A PT INR BUN Creatinine Glucose Hemoglobin A1c 7.4 H Calcium Total Bilirubin Direct Bilirubin GGT Alkaline Phosphatase Lactate Dehydrogenase NT-Pro-B Natriuret Pep Total Protein Albumin Albumin/Globulin Ratio Procalcitonin Urine Urobilinogen 2.0 e.u./dl A 04/22/22 04/22/22 23:52 23:52 RBC 3.94 L Hgb 12.3 L Hct 37.6 L RDW 17.7 H Plt Count 115 L Neut % (Auto) 82.6 H Lymph % (Auto) 9.5 L Lymph # (Auto) 0.76 L Seg Neutrophils % Lymphocytes % Platelet Estimate RBC Morphology Anisocytosis PT INR BUN 24 H Creatinine 1.7 H Glucose 168 H Hemoglobin A1c Calcium 8.3 L Total Bilirubin 2.1 H Direct Bilirubin GGT Alkaline Phosphatase 150 H Lactate Dehydrogenase NT-Pro-B Natriuret Pep Total Protein 5.7 L Albumin 2.8 L Albumin/Globulin Ratio Procalcitonin Urine Urobilinogen Meds: Medications Acetaminophen (Acetaminophen 325 Mg Tablet) 650 mg PO Q6HP PRN; Protocol PRN Reason: Per Pain Protocol/Fever > 101 Albuterol/Ipratropium (Ipratropium/Albuterol 3 Ml Ampul.Neb) 3 ml NEB Q4HP PRN PRN Reason: Shortness Of Breath Albuterol/Ipratropium (Ipratropium/Albuterol 3 Ml Ampul.Neb) 3 ml NEB BID [facility] Last Admin: 04/24/22 08:45 Dose: 3 ml Amiodarone HCl (Amiodarone Hcl 200 Mg Tablet) 200 mg PO QDAY [facility] Last Admin: 04/24/22 08:48 Dose: 200 mg Atorvastatin Calcium (Atorvastatin 40 Mg Tablet) 40 mg PO QHS [facility] Last Admin: 04/23/22 21:01 Dose: 40 mg Carvedilol (Carvedilol 12.5 Mg Tablet) 12.5 mg PO BIDCC [facility] Last Admin: 04/24/22 07:51 Dose: 12.5 mg Dextrose (Dextrose 50% 50 Ml Vial) 0 ml IV UD PRN PRN Reason: Per Sliding Scale Diagnostic Test (Pha) (Accu-Chek 1 Each Strip) 1 each FS ACHS [facility] Last Admin: 04/24/22 11:32 Dose: 1 each Docusate Sodium (Docusate Sodium 100 Mg Capsule) 100 mg PO BID [facility] Last Admin: 04/24/22 08:48 Dose: 100 mg Enoxaparin Sodium (Enoxaparin 100 Mg/Ml Syringe) 100 mg SQ BID [facility] Last Admin: 04/24/22 08:49 Dose: 100 mg Erythromycin (Erythromycin Ophth Oint 3.5gm Tube) 1 ribbon OS QID [facility] Last Admin: 04/24/22 08:49 Dose: 1 ribbon Gabapentin (Gabapentin 300 Mg Capsule) 900 mg PO HS [facility] Last Admin: 04/23/22 21:02 Dose: 900 mg Glucose (Dextrose 31 Gm Oral.Susp) 15 gm PO PRN PRN PRN Reason: Hypoglycemia Potassium Chloride 40 meq/ (Dextrose) 520 mls @ 130 mls/hr IV UD PRN PRN Reason: Potassium < 3 Magnesium Sulfate (Magnesium Sulfate) 2 gm in 50 mls @ 50 mls/hr IV UD PRN PRN Reason: Magnesium </= 1.6 Levofloxacin (Levaquin) 750 mg in 150 mls @ 100 mls/hr IV Q24H [facility]; Protocol Last Infusion: 04/24/22 10:42 Dose: Infused Milrinone Lactate/Dextrose 120 (mg/ Patient Own Medication) 600 mls @ 11.9 mls/hr IV Q48H [facility] Last Admin: 04/23/22 09:30 Dose: 11.9 mls/hr Insulin Human Lispro (Insulin Lispro 1 Unit/0.01 Ml Unit) 0 unit SQ [facility]; Protocol Last Admin: 04/24/22 11:32 Dose: Not Given Levothyroxine Sodium (Levothyroxine 125 Mcg Tablet) 125 mcg PO QAMAC [facility] Last Admin: 04/24/22 07:51 Dose: 125 mcg Losartan Potassium (Losartan 25 Mg Tablet) 12.5 mg PO BID [facility] Last Admin: 04/24/22 08:48 Dose: 12.5 mg Nitroglycerin (Nitroglycerin 0.4 Mg Tab.Subl) 0.4 mg SL Q5M PRN PRN Reason: Chest Pain Ondansetron HCl (Ondansetron 4 Mg/2 Ml Vial) 4 mg IV Q4HP PRN PRN Reason: Nausea And Vomiting Clindamycin (Phosphate 1 % Lotion) 1 dose TOPICAL BID [facility] Last Admin: 04/24/22 08:50 Dose: Not Given Eplerenone [Inspra] (25 Mg Tablet) 1 dose PO QDAY [facility] Last Admin: 04/24/22 08:50 Dose: 1 dose Neomycin-Polymyxin B -Dexameth [Maxitrol] Drops 1 dose OU Q8H [facility] Last Admin: 04/24/22 05:28 Dose: Not Given Polyethylene Glycol (Polyethylene Glycol 3350 17 Gm Packet) 17 gm PO DAILYP PRN PRN Reason: Constipation Potassium Chloride (Potassium Chloride 20 Meq Tablet) 50 meq PO BIDCC [facility] Last Admin: 04/24/22 07:51 Dose: 50 meq Potassium Chloride (Potassium Chloride 20 Meq Tablet) 40 meq PO UD PRN PRN Reason: Potssium is 3-3.5 Potassium Chloride (Potassium Chloride 20 Meq Tablet) 40 meq PO UD PRN PRN Reason: Potassium < 3 Primidone (Primidone 50 Mg Tablet) 100 mg PO QHS [facility] Last Admin: 04/23/22 21:02 Dose: 100 mg Senna (Sennosides 1 Tablet) 2 tab PO DAILYP PRN PRN Reason: Constipation Sodium Chloride (0.9 % Sodium Chloride 10 Ml Syringe) 10 ml IV Q8 [facility] Last Admin: 04/24/22 05:28 Dose: 10 ml Torsemide (Torsemide 20 Mg Tablet) 60 mg PO BID [facility] Last Admin: 04/24/22 08:49 Dose: 60 mg Warfarin Sodium (Warfarin Per Pharmacy) 1 order PO UD [facility] Warfarin Sodium (Warfarin 5 Mg Tablet) 5 mg PO ONCE@1400 ONE Stop: 04/24/22 14:01 A/P Narrative A/P Narrative: Assessment: 76-year-old male with a history of diabetes mellitus, chronic kidney disease stage IIIb, atrial fibrillation, coronary artery disease status post stents, severe cardiomyopathy with combined chronic systolic and diastolic heart failure managed with chronic milrinone therapy, COPD, hypothyroidism, recent rib fractures admitted for community-acquired pneumonia. 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
[2022-04-24] MEDS ORDERED: WARFARIN 5 MG TABLET PO ONE (14:00)
[2022-04-24] MEDS: BENZONATATE 100 MG CAPSULE PO PRN (16:53)
[2022-04-24] MEDS: D5W IV SCH (20:26)
[2022-04-24] MEDS: MILRINONE LACTATE IV SCH (20:26)
[2022-04-24] MEDS: GABAPENTIN 300 MG CAPSULE PO SCH (21:17)
[2022-04-24] MEDS: ATORVASTATIN 40 MG TABLET PO SCH (21:18)
[2022-04-24] MEDS: PRIMIDONE 50 MG TABLET PO SCH (21:18)
[2022-04-25] MEDS: POLYMYXIN B OU SCH ×2 (05:15→13:13)
[2022-04-25] MEDS: DEXAMETHASONE OU SCH ×2 (05:15→13:13)
[2022-04-25] MEDS: NEOMYCIN OU SCH ×2 (05:15→13:13)
[2022-04-25] MEDS: 0.9 % SODIUM CHLORIDE 10 ML SYRINGE IV SCH ×3 (05:16→13:14)
[2022-04-25 06:36] LABS: INR 1.6 (0.9-1.1); Prothrombin Time 19.3 sec (11.9-14.5)
[2022-04-25] MEDS: INSULIN LISPRO 1 UNIT/0.01 ML UNIT SQ SCH ×2 (06:58→11:40)
[2022-04-25] MEDS: LEVOTHYROXINE 125 MCG TABLET PO SCH (06:58)
[2022-04-25] MEDS: CARVEDILOL 12.5 MG TABLET PO SCH (08:17)
[2022-04-25] MEDS: LOSARTAN 25 MG TABLET PO SCH (08:17)
[2022-04-25] MEDS: TORSEMIDE 20 MG TABLET PO SCH (08:17)
[2022-04-25] MEDS: POTASSIUM CHLORIDE 20 MEQ TABLET PO SCH (08:17)
[2022-04-25] MEDS: AMIODARONE HCL 200 MG TABLET PO SCH (08:17)
[2022-04-25] MEDS: ERYTHROMYCIN OPHTH OINT 3.5GM TUBE OS SCH ×2 (08:18→13:17)
[2022-04-25] MEDS: LEVOFLOXACIN 750 MG/150 ML BAG IV SCH (08:18)
[2022-04-25] MEDS: DOCUSATE SODIUM 100 MG CAPSULE PO SCH (08:18)
[2022-04-25] MEDS: ENOXAPARIN 100 MG/ML SYRINGE SQ SCH (08:18)
[2022-04-25] MEDS: MILRINONE LACTATE IV SCH (08:19)
[2022-04-25] MEDS: D5W IV SCH (08:19)
[2022-04-25] MEDS: BENZONATATE 100 MG CAPSULE PO PRN ×2 (08:33→13:48)
[2022-04-25] MEDS: IPRATROPIUM/ALBUTEROL 3 ML AMPUL.NEB NEB SCH (08:49)
--- NOTE | 2022-04-25 10:46 | Discharge Summary ---
Discharge Provider Provider IMPORTANT FOLLOW-UP INFORMATION FOR PCP: Patient information: Note initiated : 04/25/22 at 10:43 am Service Date, if different from initiated Date: [] Patient: Jameson Stewart 76 y/o M admitted on 04/23/22 for weakness. Chief Complaint: [] Date of admission: 04/23/22 09:21 Discharge date: 04/25/22 Primary care physician: Fletcher Perera Consults: 04/23/22 Consult to Physician [CONS] Stat Comment: Consulting Provider: Edgar Cohen Reason For Exam: Physician to Consult COURSE Hospital Course Hospital course: Mr. Stewart is a 76 year old male who presented to the ED for generalized weakness coughing fever. He has had rib fractures that he sustained couple weeks ago that he believes been complicating the issue. He has been unable to walk around his house safely due to weakness per his . In the ED his temperature on arrival was 101.7. Patient with history of ischemic cardiomyopathy with systolic and diastolic dysfunction, chronic kidney disease, atrial fibrillation with pacemaker and defibrillator, COPD, diabetes, CAD with stents. Patient is on milrinone every other day IV. Rapid COVID and flu in the ED was negative. Patient started on antibiotics in the ED. Patient is on a milrinone drip. He was not a candidate for heart transplant. Discussion with the stoker erector they thought they could give him some quality of life with a milrinone drip for couple months to maybe a couple years but he is still doing relatively well 4 years later. Patient says his weight has gone up a little bit but he attributes that to eating more lately. He says he has had more salt lately because of the holiday. He does not have any more edema than he usually does. He does have a productive cough that is new with clear yellow sputum. He has has had chills. No chest pain. And he feels he has had a little bit more wheezing than usual. 04/24 Patient says he is feeling little bit better today. He says his cough is impro ving shortness of breath improved. INR subtherapeutic will provide Lovenox for bridging. 04/25 Patient is on room air, able to ambulate in the hallways independently. The patient says that he is near his baseline. He says that he has had an increase in body weight recently, added metolazone 2.5 mg as needed for outpatient fluid management. The patient has taken metolazone as needed before and understands the concept well. Will complete 7 days of antibiotic treatment for pneumonia with levofloxacin. The patient recently stubbed one of his right toes, there is some redness in this area so I will place a referral to podiatry to monitor this closely. Discharge to home with family support. Physical exam Head: Atraumatic, normal inspection. Eyes: normal appearance, no scleral icterus. Neck: full ROM Respiratory: no respiratory distress, faint bibasilar crackles. Cardiovascular: normal rate and rhythm, S1, S2. GI/Abdominal: soft, nontender, no guarding. Extremities: PICC line right upper extremity, full range of motion, right #2 toe injury from recent trauma, redness around the toe. Neurological: CN II-XII intact, intact motor, intact sensation. Psychiatric: normal mood. Skin: warm, normal color Discharge diagnosis: Community aquired pneumonia Time Spent with Patient Time attestation: Total time spent providing and/or coordinating discharge services: Time spent: Greater than 30 minutes EXAM Constitutional Vitals: Temp Pulse Resp BP Pulse Ox O2 Del Method O2 Flow Rate 97.6 F 86 16 93/68 90 0 04/25/22 08:00 04/25/22 08:49 04/25/22 08:49 04/25/22 10:02 04/25/22 10:02 04/25/22 08:49 04/25/22 07:02 Discharge Data Data Completed and Pending Labs on day of discharge: Labs from last 24 hours 04/25/22 05:34 PT 19.3 H INR 1.6 H Preliminary micro results at discharge 04/22/22 23:59 Blood Culture - Preliminary Blood 04/22/22 23:52 Blood Culture - Preliminary Blood Discharge Plan Patient/Caregiver Discharge Instructions Prescriptions: New metolazone 2.5 mg tablet 2.5 mg PO QDAY PRN (Reason: Increase daily weight or bilateral leg edema. ) Qty: 30 0RF Rx Instructions: Take 30 minutes before Torsemide dose. levofloxacin 750 mg tablet 750 mg PO QDAY 5 Days Qty: 5 0RF Continued eplerenone [Inspra] 25 mg tablet 25 mg PO QDAY Qty: 90 3RF atorvastatin 40 mg tablet 40 mg PO QHS Qty: 90 3RF coenzyme Q10 200 mg capsule 200 mg PO QDAY cholecalciferol (vitamin D3) 2,000 unit capsule 2,000 unit PO QDAY Label Comments: take 2 capsules daily cyanocobalamin (vitamin B-12) 1,000 mcg tablet 1,000 mcg PO QDAY nitroglycerin 0.4 mg tablet, sublingual 0.4 mg SUBLINGUAL Q5-15MIN PRN (Reason: Chest Pain) milrinone See Rx Instructions .ROUTE .COMPLEX Rx Instructions: Continuous infusion at 0.375 mcg/kg/min multivitamin with iron-mineral tablet 1 tab PO QDAY Qty: 100 3RF Rx Instructions: give with food (meal/snack) primidone 50 mg tablet 100 mg PO QHS warfarin 5 mg tablet 5 mg PO .COMPLEX Qty: 90 0RF Hold Instructions: Doctor's Order Protocol: Dose Management Protocol Text: Patient Instructed to take: warfarin 5 mg (1 Tab) on , , warfarin 5 mg (0.5 Tab) on , , Rx Instructions: 5mg HS on Saturday, , Saturday, Saturday neomycin-polymyxin B-dexameth [Maxitrol] 3.5mg/mL-10,000 unit/mL-0.1 % drops,suspension 1 drp ophthalmic (eye) Q8H Qty: 5 0RF Rx Instructions: today 03/24 put one drop in left eye every hour or so. beginning tomorrow, put one drop in left eye three times a day for two weeks. amiodarone 200 mg tablet 1 tab PO QDAY warfarin 2.5 mg Tablet 2.5 mg PO MOWEFR@2100 Rx Instructions: 2.5 mg HS on Saturday, Saturday, Saturday levothyroxine 125 mcg tablet 1 tab PO QDAY gabapentin 600 mg tablet 900 mg PO qhs carvedilol 12.5 mg tablet 12.5 mg PO BID torsemide 20 mg tablet 60 mg PO BID potassium chloride [Klor-Con M20] 20 mEq tablet,ER particles/crystals 50 meq PO BID Rx Instructions: 50 mEq BID, take 3 extra pills on Wednesdays. losartan 25 mg tablet 12.5 mg PO BID clindamycin phosphate 1 % lotion 1 ea topical BID Rx Instructions: Apply a thin layer to the affected groin and thigh 2 times per day Follow Up Plan Follow up with: Flecther Perera MD [Primary Care Provider] - 04/27/22 10:30 am Burak Gabriel DPM [Physician] - (Right #2 toe injury ("stubbed toe"), close monitoring for infection. High risk patient due to multiple medical comorbidities. ) Patient Disposition: Home, Self-Care Prognosis: Serious Overall status at discharge: patient is progressing back to baseline Discharge Orders: Discharge Order (Routine); Ordered 04/25/22 Ordered By: Jorge NOVAK VTE Deep Vein Thrombosis/Pulmonary Embolism Present on Admission: No
[2022-04-25] MEDS ORDERED: WARFARIN 2.5 MG TABLET PO ONE (14:00)
== END 2022-04-25 13:55 | disposition home or self-care (01) | DRG 194 ==
LOC: ED 22:32 → ICU 04-23 09:21
PROVIDERS: ADMIT Internal Medicine; ATTEND Internal Medicine